=== PATIENT | male | born 1970 | race Hispanic/Latino ===

== ENCOUNTER 2018-06-07 15:19 | Observation (INO) | payer OTHER ==
--- OUTSIDE RECORDS SUMMARY | 2018-06-07 15:22 | XMS REPORT | Clinical Summary ---
:1970 Author Organization [facility] Address [address] [place] [address] Care Team Providers Name Role Phone Maribel Fisher MD Primary Care Provider Allergies No Known Allergies Medications Medication Sig Dispensed Refills Start End Date Status Date hepatitis B Inject 1 mL 1 mL 2 10/22/19 Discontinued vaccine intramuscularly once 7 18 (ENGERIX-B) 20 for 1 dose at 0 mcg/mL Susp months, 1 month, and injectionIndicati 6 months. ons: Fatty liver disease, nonalcoholic, Immunization due Active Problems Problem Noted Date Secondary hypertension 05/17/2018 Elevated liver enzymes 01/28/2015 Last Assessment & Plan: Patient has elevated liver enzymes with predominant hepatocellular pattern of injury. Comprehensive work up for etiology of elevated liver enzymes including SAM, AMA , Anti Sm, Anti LKM-1, ceruplasmin, A1-antitrypsin done by Dr. Amado is negative. S. Ferritin was elevated to 1501 with normal % transferrin saturation. Anti Hep C and HIV negative. We don't have Hep A and B serologies but per patient it was checked and negative. Likely etiology for elevated liver enzyme is ONEAL, however typically this degree of AST/ALT elevation is not seen. Diagnosis of ONEAL is presumed based on improvement in AST/ALT with weight loss, family history of ONEAL cirrhosis in mother. We will repeat lab work today. We will consider liver biopsy for further work up based on lab result on next clinic visit. Family history of atherosclerosis 01/28/2015 Last Assessment & Plan: Family history of diabetes in mom and dad, and premature CAD in father is a risk factor for diabetes and atherosclerosis in patient. We will check fasting lipids, HbA1C and insulin level. Further recommendations to follow. Immunity status testing 01/28/2015 Last Assessment & Plan: We will test for immunity against Hep A and Hep B. Immunization recommendations to follow. Iron overload 01/28/2015 Last Assessment & Plan: Serum ferritin was elevated to 1501 with normal % transferrin saturation. Elevated ferritin could be because of underlying ONEAL, but typically this degree of elevation is not seen. We will repeat iron studies and check HFE mutation analysis. If liver biopsy is performed in future we will also perform iron staining. Fatty liver disease, nonalcoholic 01/28/2015 Last Assessment & Plan: Diagnosis of fatty liver based on imaging. Risk factor for fatty liver includes obesity and family history of ONEAL cirrhosis. He has no prior history of HLD or diabetes. We will check fasting lipids, in sulin and HbA1C. We recommended a 10% weight loss, which disproportionately decreases visceral fat and can ameliorate hepatic steatosis and steatohepatitis by 95-100%. We recommended a modified Gemma's diet, substituting vegetables for wheat, corn, potato or rice or foods made from the flours of these carbohydrates. Obesity 01/28/2015 Last Assessment & Plan: Obesity is a risk factor for NAFLD. We discussed weight loss with dietary modification and exercise. See discussion in NAFLD section. Encounters Date Type Specialty Care Team Description 06/07/2018 Hospital Encounter Research Armen Corea MD 05/17/2018 Office Visit Hepatology Wyatt Godoy, Fatty liver disease, nonalcoholic (Primary Dx); Iron overload; [employer] Obesity due to excess calories without serious comorbidity, unspecified classification; CLINT Schultz Immunity status testing; Elevated liver enzymes; Secondary hypertension 05/17/2018 Abstract Transplant Delmy Almazan Hepatology Pavel, RICHI 05/17/2018 Abstract Transplant Delmy Almazan Hepatalphonse Zhao, RICHI 05/10/2018 Hospital Encounter Research Armen Corea MD 05/10/2018 Orders Only Hepatology Polly, Encounter for examination for normal comparison or control in clinical research program (Primary Dx); Era Schultz NP Nonalcoholic steatohepatitis (ONEAL) 04/12/2018 Hospital Encounter Research Armen Corea MD 03/15/2018 [facility] Encounter for examination for normal comparison or control in clinical research program; Era Schultz NP Nonalcoholic steatohepatitis (ONEAL) 03/15/2018 Hospital Encounter Research Armen Corea MD 02/15/2018 Hospital Encounter Research Armen Corea MD 02/14/2018 [facility], Encounter for examination for normal comparison or control in clinical research program (Primary Dx); Era Schultz NP Nonalcoholic steatohepatitis (ONEAL) 01/18/2018 Hospital Encounter Research Armen Corea MD 12/23/2017 Hospital Encounter Research Armen Corea MD 12/16/2017 Hospital Encounter Radiology [place], Encounter for examination for normal comparison and control in clinical research program; Era Schultz NP Nonalcoholic steatohepatitis (ONEAL) 12/06/2017 Orders Only Hepatology [place], Encounter for examination for normal comparison and control in clinical research program (Primary Dx); Era Schultz NP Nonalcoholic steatohepatitis (ONEAL) 11/17/2017 Office Visit Hepatology Wyatt Godoy, Fatty liver disease, nonalcoholic (Primary Dx); Elevated liver enzymes; Seble Souza Immunity status testing; TREVOR Schultz Iron overload; Obesity due to excess calories without serious comorbidity, unspecified classification; Hypertension, unspecified type 10/21/2017 Hospital Encounter Armen Corea Encounter for examination for normal comparison and control in clinical research program; MD Alvaro 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 Last Filed Vital Signs Vital Sign Reading Time Taken Blood Pressure 128/85 05/17/2018 8:16 AM CDT Pulse 74 05/17/2018 8:16 AM CDT Temperature 36.9 C (98.4 F) 05/17/2018 8:16 AM CDT Respiratory Rate 18 05/17/2018 8:16 AM CDT Oxygen Saturation 96% 05/17/2018 8:16 AM CDT Inhaled Oxygen Concentration - - Weight 105.4 kg (232 lb 4.8 oz) 05/17/2018 8:16 AM CDT Height 177.8 cm (5' 10") 05/17/2018 8:16 AM CDT Body Mass Index 33.33 05/17/2018 8:16 AM CDT Plan of Treatment Date Type Specialty Care Team Description 06/10/2018 Hospital Encounter Radiology Era Matias, EXECUTIVE RECEPTIONIST [id number] [facility] [address] [place] [address] 05/16/2019 Office Visit Hepatology Resource, [facility] F Procedures Procedure Name Priority Date/Time Associated Diagnosis Comments FERRITIN Routine 05/17/2018 10:23 Fatty liver disease, Results for this AM CDT nonalcoholic procedure are in Iron overload the results section. IRON, TIBC, % SAT. Routine 05/17/2018 10:23 Fatty liver disease, Results for this (WITHOUT FERRITIN) AM CDT nonalcoholic procedure are in Iron overload the results section. MR ABDOMEN WITHOUT Routine 03/15/2018 10:50 Encounter for Results for this IV CONTRAST AM LINE ASSEMBLER examination for normal procedure are in comparison or control the results in clinical research section. program Nonalcoholic steatohepatitis (ONEAL) MR ABDOMEN WITHOUT Routine 12/16/2017 1:15 Encounter for Results for this IV CONTRAST PM CDT examination for normal procedure are in comparison and control the results in clinical research section. program Nonalcoholic steatohepatitis (ONEAL) TISSUE EXAM AP Routine 10/21/2017 9:39 Results for this PM CDT procedure are in the results section. US LIVER BIOPSY Routine 10/21/2017 12:05 Encounter for Results for this PM CDT examination for normal procedure are in comparison and control the results in clinical research section. 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 PT/APTT STAT 10/21/2017 8:34 Results for this AM CDT procedure are in the results section. CBC W/PLT COUNT & STAT 10/21/2017 8:34 Results for this AUTO DIFFERENTIAL AM CDT procedure are in the results section. BASIC METABOLIC STAT 10/21/2017 8:34 Results for this PANEL (7) AM CDT procedure are in the results section. after 06/06/2017 Results Iron, TIBC, % sat. (without ferritin) (05/17/2018 10:23 AM CDT) Iron 100.0 40.0 - 160.0 ug/dL [facility] TIBC 409 250 - 450 ug/dL [facility] Iron % Saturation 24 20 - 55 % [facility] Specimen Blood Performing Organization Address City/[facility]/Zipcode Phone Number [facility] [address] [place] [phone] [place] Ferritin (05/17/2018 10:23 AM CDT) Ferritin 334 (H) 5 - 275 ng/mL [facility] Specimen Blood Performing Organization Address City/State/Zipcode Phone Number [facility] [address] [place] [phone] CENTER MR abdomen without IV contrast (03/15/2018 10:50 AM LINE ASSEMBLER)Only the most recent of2 resultswithin the time period is included. Narrative Performed At FINAL REPORT [facility] TECHNIQUE: MRI of the abdomen without intravenous contrast for research purposes. INDICATION: Participant in a clinical research trial. COMPARISON: MRI of the abdomen from 04/24/2016. FINDINGS/IMPRESSION: These images were obtained for research purposes. Diffuse fatty infiltration of the liver. Signed: Yan Salazar MD Report Verified Date/Time:03/15/2018 12:17:25 Reading Location: [facility] B1 C013Y CT Body Reading Room Procedure Note Interface, External Ris In - 03/15/2018 12:19 PM LINE ASSEMBLER FINAL REPORT TECHNIQUE: MRI of the abdomen without intravenous contrast for research purposes. INDICATION: Participant in a clinical research trial. COMPARISON: MRI of the abdomen from 04/24/2016. FINDINGS/IMPRESSION: These images were obtained for research purposes. Diffuse fatty infiltration of the liver. Signed: Yan Salazar MD Report Verified Date/Time: 03/15/2018 12:17:25 Reading Location: [facility] B1 C013Y CT Body Reading Room Performing Organization Address City/State/Zipcode Phone Number GE RIS Tissue Exam (10/21/2017 9:39 PM CDT) Case Report Surgical Pathology Report Case: [id number] [facility] Authorizing Provider:Armen Corea MD Collected: [id number]/21/[id number] [facility] Ordering Location: [place] [address] OP Received:10/21/20172141 Pathologist: Ivan Nieto MD Specimen:Biopsy, Liver, Bx DIAGNOSIS LIVER, ULTRASOUND-GUIDED NEEDLE BIOPSIES [facility] - STEATOHEPATITIS [facility] - FIBROSIS STAGE 2 OF 4 - SEE COMMENT Signing Pathologist Direct Phone Line: [phone] COMMENT The non-alcoholic steatohepatitis (ROGERS) activity scoring is performed according to guidelines from non-alcoholic steatohepatitis, clinical research network (Mariam, et al. Hepatology 2005. 41:1313-21), [facility] at the request of the clinician, for research related purposes. [facility] The ROGERS score is: Steatosis: Grade 2 + lobular inflammation, grade 2 + hepatocyte ballooning score 2=6/8. The fibrosis score is 2 of 4. CPT Code(s) 98812, 11678 X4 [facility] CLINICAL HISTORY Fatty liver disease [facility] SPECIMEN SOURCE Ultrasound-guided nontargeted [facility] needle biopsy [facility] GROSS DESCRIPTION Received in formalin labeled with patient's name and MRN are two tissue cores measuring 1.3 cm and 1.4 cm in length respectively with an average diameter of 0.1 cm. Entirely submitted in A1. [facility] MICROSCOPIC DESCRIPTION Section shows two cores of liver parenchyma with greater than 10 portal tracts and is adequate for evaluation. There is moderate steatosis, macrovesicular type admixed with small droplet and medium drop [facility] let steatosis, involving about 60% of liver parenchyma. Multifocal ballooning degeneration with early Dora Denk hyaline is noted. Occasional acidophilic bodies are seen. Moderate lobular inflammation [facility] is present. The portal tracts show mild chronic nonspecific portal inflammation. The bile ducts are preserved and unremarkable. Ductular reaction is present. Iron stain shows 1+ to 2+ staining of the h epatocytes. No hyaline globules are seen on PAS with diastase stain. The trichrome stain portal/periportal and perivenular perisinusoidal fibrosis. Special stains: trichrome, reticulin, iron and PAS with diastase Specimen Tissue - Biopsy, Liver Performing Organization Address City/State/Zipcode Phone Number [facility] [address] [place] [address] [facility] liver biopsy (10/21/2017 12:05 PM CDT) Narrative Performed At FINAL REPORT [employer] PROCEDURE: Ultrasound-guided nonfocal liver biopsy. INDICATION: 47-year-old man with nonalcoholic steatohepatitis. COMPARISON: Ultrasound-guided liver biopsy 05/19/2016. SEDATION: Intravenous moderate sedation was administered by radiology nursing and monitored under the direction of the undersigned radiologist. The patient's vital signs were monitored throughout the procedure and recorded in the patient's medical record by radiology nursing. Total intraservice time of sedation was 15 minutes. MEDICATIONS: 1 mg Versed, 50 mcg fentanyl FINDINGS: After obtaining informed written consent, the patient was placed in the supine position, and ultrasound scan identified an accessible window to the right lobe of the liver. Increased echogenicity of the liver, consistent with hepatic steatosis. The overlying skin was prepped and draped in the usual, sterile fashion and local 9 cc of 1% lidocaine anesthesia was administered. Two core biopsies of the liver were obtained using 16-gauge Biopince biopsy needle under ultrasound guidance. Post procedure scans revealed no immediate complications. IMPRESSION: Uncomplicated ultrasound-guided nonfocal biopsy of the liver. Signed: Dami Serrano MD Report Verified Date/Time:10/21/2017 12:07:36 Reading Location: [address] Ultrasound Reading Room Procedure Note Interface, External Ris In - 10/21/2017 12:11 PM CDT FINAL REPORT PROCEDURE: Ultrasound-guided nonfocal liver biopsy. INDICATION: 47-year-old man with nonalcoholic steatohepatitis. COMPARISON: Ultrasound-guided liver biopsy 05/19/2016. SEDATION: Intravenous moderate sedation was administered by radiology nursing and monitored under the direction of the undersigned radiologist. The patient's vital signs were monitored throughout the procedure and recorded in the patient's medical record by radiology nursing. Total intraservice time of sedation was 15 minutes. MEDICATIONS: 1 mg Versed, 50 mcg fentanyl FINDINGS: After obtaining informed written consent, the patient was placed in the supine position, and ultrasound scan identified an accessible window to the right lobe of the liver. Increased echogenicity of the liver, consistent with hepatic steatosis. The overlying skin was prepped and draped in the usual, sterile fashion and local 9 cc of 1% lidocaine anesthesia was administered. Two core biopsies of the liver were obtained using 16-gauge Biopince biopsy needle under ultrasound guidance. Post procedure scans revealed no immediate complications. IMPRESSION: Uncomplicated ultrasound-guided nonfocal biopsy of the liver. Signed: Dami Serrano MD Report Verified Date/Time: 10/21/2017 12:07:36 Reading Location: [address] Ultrasound Reading Room Performing Organization Address City/[facility] Phone Number [facility] PT/aPTT (10/21/2017 8:34 AM CDT) Protime 14.7 11.7 - 14.7 seconds [facility] INR 1.2 <=5.9 [facility] PTT 31.2 22.5 - 36.0 seconds [facility] Specimen Blood - Arm, Left Narrative Performed At [facility] RECOMMENDED COUMADIN/WARFARIN INR THERAPY RANGES STANDARD DOSE: 2.0 - 3.0 Includes: PROPHYLAXIS for venous thrombosis, systemic embolization; TREATMENT for venous thrombosis and/or pulmonary embolus. HIGH RISK: Target INR is 2.5-3.5 for patients with mechanical heart valves. Performing Organization Address City/[facility] Cent[facility]ode Phone Number [place] [phone] [place] [phone] CENTER CBC with platelet count + automated diff (10/21/2017 8:34 AM CDT) WBC 7.8 3.5 - 10.5 K/L [facility] RBC 5.59 4.63 - 6.08 M/L [facility] Hemoglobin 14.7 13.7 - 17.5 GM/DL [facility] Hematocrit 46.3 40.1 - 51.0 % [facility] MCV 82.8 79.0 - 92.2 fL [facility] MCH 26.3 25.7 - 32.2 pg [facility] MCHC 31.7 (L) 32.3 - 36.5 GM/DL [facility] RDW 13.9 11.6 - 14.4 % [facility] Platelets 213 150 - 450 K/CU MM [facility] MPV 11.0 9.4 - 12.4 fL [facility] nRBC 0 0 - 0 /100 WBC [facility] % Neutros 59 % [facility] % Lymphs 29 % [facility] % Monos 9 % [facility] % Eos 2 % [facility] % Baso 0 % [facility] # Neutros 4.63 1.78 - 5.38 K/L [facility] # Lymphs 2.28 1.32 - 3.57 K/L [facility] # Monos 0.71 0.30 - 0.82 K/L [facility] # Eos 0.14 0.04 - 0.54 K/L [facility] # Baso 0.03 0.01 - 0.08 K/L [facility] Immature Granulocytes-Relative 1 0 - 1 % [facility] Specimen Blood - Arm, Left Performing Organization Address [facility]/Zipcode Phone Number [facility] [address] [place], [place] [phone] [place] Basic Metabolic Panel (10/21/2017 8:34 AM CDT) Sodium 138 136 - 145 meq/L [facility] Potassium 4.2 3.5 - 5.1 meq/L [facility] Chloride 104 98 - 107 meq/L [facility] CO2 23 22 - 29 meq/L [facility] BUN 16 7 - 21 mg/dL [facility] Creatinine 1.19 0.57 - 1.25 mg/dL [facility] Glucose 103 70 - 105 mg/dL [facility] Calcium 9.6 8.4 - 10.2 mg/dL [facility] EGFR 65Comment: ESTIMATED GFR IS mL/min/1.73 sq m [facility] NOT ACCURATE CREATININE [facility] CLEARANCE IN PREDICTING GLOMERULAR FILTRATION RATE. ESTIMATED GFR IS NOT APPLICABLE FOR DIALYSIS PATIENTS. Specimen Blood - Arm, Left Performing Organization Address City/[facility]/Zipcode Phone Number [facility] [address] [place] [address] [phone] [place] after 06/06/2017 Insurance Payer Benefit Plan / Group Subscriber ID Type Phone Address [employer] - [employer] POS SELECT xxxxxxxxx HMO/POS CARE CHOICE Advance Directives For more information, please contact:[address] [phone] Code Status Date Activated Date Inactivated Comments Full Code 10/21/2017 12:28 PM 10/21/2017 8:40 PM This code status was determined by: Patient Full Code 05/19/2016 12:40 PM 05/19/2016 7:44 PM This code status was determined by: Patient Full Code 03/27/2015 11:12 AM 03/28/2015 12:26 AM This code status was determined by: Patient
--- OUTSIDE RECORDS SUMMARY | 2018-06-07 15:22 | XMS REPORT ---
:1970 Author [facility] Address [address] [place] [address] Dr. Billy [address] [place] [id number] Care Team Providers Name Role Phone TIM ROGERS Unavailable Unavailable JACOBO COREA Unavailable Unavailable MADDIE ORTEGA Unavailable Unavailable Problems This patient has no known problems. Allergies, Adverse Reactions, Alerts This patient has no known allergies or adverse reactions. Medications This patient has no known medications. Results Test Description Test Time Test Comments Text Results Atomic Results Result Comments FERRITIN 2018-05-17 12:17:00 Test Item Value Reference Range Comments FERRITIN (BEAKER) (test tuqp=965) 334 ng/mL 5-275 IRON, TIBC, % SAT. (WITHOUT FERRITIN)2018-05-17 11:56:00 Test Item Value Reference Range Comments IRON (BEAKER) (test qqvj=307) 100.0 ug/dL 40.0-160.0 TOTAL IRON BINDING CAPACITY (BEAKER) (test 409 ug/dL 250-450 vbys=668) IRON % SATURATION (2) (BEAKER) (test vgdz=0121) 24 % 20-55 MR, ABDOMEN, WITHOUT [id number] 12:17:00Referring: Dr. Maribel CarranzaED MRI WITHOUT CONTRAST WITH FAT FRACTIONFINAL REPORT TECHNIQUE: MRI of the abdomen without intravenous contrast for research purposes. INDICATION: Participant in a clinical research trial. COMPARISON: MRI of the abdomen from 04/24/2016. FINDINGS/IMPRESSION:These images were obtained for research purposes. Diffuse fattyinfiltration of the liver. Signed: Yan Salazar MDReport Verified Date/Time: 03/15/2018 12:17:25 Reading Location: [facility] C013Y CT Body Reading Room MR, ABDOMEN, WITHOUT [id number] 14:30:00Referring: Dr. Maribel CarranzaED MRI ABD WITH FAT FRACTIONFINAL REPORT TECHNIQUE: MRI of the abdomen without intravenous contrast for research purposes. INDICATION: Participant in a clinical research trial. COMPARISON: MRI of the abdomen from 04/24/2016. FINDINGS/IMPRESSION: These images were obtained for research purposes. Diffuse fatty infiltration of the liver. Signed: Blaise Robbins Verified Date/Time : 12/16/2017 14:30:40 Reading Location: [facility] B1 C013Y CT Body Reading Room TISSUE [id number] 12:17:00Surgical Pathology Report Case: [id number] Authorizing Provider: Jacobo Corea MD Collected: 10/21/20172138 Ordering Location: [place] [address] OP Received: 10/21/20172141 Pathologist: Ivan Nieto MD Specimen: Biopsy, Liver, Bx LIVER, ULTRASOUND-GUIDED NEEDLE BIOPSIES- STEATOHEPATITIS- FIBROSIS STAGE 2 OF 4- SEE COMMENT Signing Pathologist Direct Phone Line: [phone] signed by Ivan Nieto MD on at 12:17PMThe non-alcoholic steatohepatitis (ROGERS) activity scoring is performed according to guidelines fromnon-alcoholic steatohepatitis, clinical research network (Mariam, et al. Hepatology 2005. 41:1313-21), at the request of the clinician, for research related purposes.The ROGERS score is: Steatosis: Grade2 + lobular inflammation, grade 2 + hepatocyte ballooning score 2=6/8. The fibrosis score is 2 of 4.70725, 77792 L4Durnt liver diseaseUltrasound-guided nontargeted needle biopsyReceived in formalin labeled with patient's name and MRN are two tissue cores measuring 1.3 cm and 1.4 cm in length respectively with an average diameter of 0.1 cm. Entirely submitted in A1.Section shows two cores of liver parenchyma with greater than 10 portal tracts and is adequate for evaluation. There is moderate steatosis, macrovesicular type admixed with small droplet and medium droplet steatosis, involving about 60% of liver parenchyma. Multifocal ballooning degeneration with early Dora Denk hyaline is noted. Occasional acidophilic bodies are seen. Moderate lobular inflammation is present. The portal tracts show mild chronic nonspecific portal inflammation. The bile ducts are preserved and unremarkable. Ductularreaction is present. Iron stain shows 1+ to 2+ staining of the hepatocytes. No hyaline globules are seen on PAS with diastase stain. The trichrome stain portal/ periportal and perivenular perisinusoidalfibrosis.Special stains: trichrome, reticulin, iron and PAS with diastaseU/S, BIOPSY, [id number] 12:07: 00Referring: Dr. Maribel Burks for Exam:->Participation in a clinical research trialReason for Exam:->NASHFINAL REPORT PROCEDURE: Ultrasound-guided nonfocal liver biopsy. INDICATION: 47-year-old man with nonalcoholic steatohepatitis. COMPARISON: Ultrasound-guided liver biopsy . SEDATION: Intravenous moderate sedation was administered by radiology nursing and monitored underthe direction of the undersigned radiologist. The patient's [...] Uncomplicated ultrasound-guided nonfocal biopsy of the liver. Signed :Dami Serrano Verified Date/Time: 10/21/2017 12:07:36 Reading Location: [address] Ultrasound Reading Room [id number] 09:01:00 Test Item Value Reference Range Comments PROTIME (BEAKER) (test yise=699) 14.7 seconds 11.7-14.7 INR (BEAKER) (test duqz=042) 1.2 <=5.9 PARTIAL THROMBOPLASTIN TIME (BEAKER) (test 31.2 seconds 22.5-36.0 xzmh=999) RECOMMENDED COUMADIN/WARFARIN INR THERAPY RANGESSTANDARD DOSE: 2.0 - 3.0 Includes: PROPHYLAXIS forvenous thrombosis, systemic embolization; TREATMENT for venous thrombosis and/or pulmonary embolus.HIGH RISK: Target INR is 2.5-3.5 for patients with mechanical heart valves.BASIC METABOLIC [id number] 09:01: 00 Test Item Value Reference Range Comments SODIUM (BEAKER) (test 138 meq/L 136-145 ivhq=415) POTASSIUM (BEAKER) (test 4.2 meq/L 3.5-5.1 mgsb=057) CHLORIDE (BEAKER) (test 104 meq/L 98-107 umnd=600) CO2 (BEAKER) (test 23 meq/L 22-29 ryau=363) BLOOD UREA NITROGEN 16 mg/dL 7-21 (BEAKER) (test cvqz=259) CREATININE (BEAKER) (test 1.19 mg/dL 0.57-1.25 jdqe=912) GLUCOSE RANDOM (BEAKER) 103 mg/dL 70-105 (test moie=309) CALCIUM (BEAKER) (test 9.6 mg/dL 8.4-10.2 cdqh=452) EGFR (BEAKER) (test 65 mL/min/1.73 sq m ESTIMATED GFR IS NOT qqzo=3168) ACCURATE CREATININE CLEARANCE IN PREDICTING GLOMERULAR FILTRATION RATE. ESTIMATED GFR IS NOT APPLICABLE FOR DIALYSIS PATIENTS. CBC W/PLT COUNT & AUTO [id number] 08:46:00 Test Item Value Reference Range Comments WHITE BLOOD CELL COUNT (BEAKER) (test gcgf=562) 7.8 K/ L 3.5-10.5 RED BLOOD CELL COUNT (BEAKER) (test racf=418) 5.59 M/ L 4.63-6.08 HEMOGLOBIN (BEAKER) (test wlzq=547) 14.7 GM/DL 13.7-17.5 HEMATOCRIT (BEAKER) (test mcua=917) 46.3 % 40.1-51.0 MEAN CORPUSCULAR VOLUME (BEAKER) (test bewf=945) 82.8 fL 79.0-92.2 MEAN CORPUSCULAR HEMOGLOBIN (BEAKER) (test 26.3 pg 25.7-32.2 jhex=974) MEAN CORPUSCULAR HEMOGLOBIN CONC (BEAKER) (test 31.7 GM/DL 32.3-36.5 kjyz=896) RED CELL DISTRIBUTION WIDTH (BEAKER) (test 13.9 % 11.6-14.4 ntsk=204) PLATELET COUNT (BEAKER) (test zkbf=732) 213 K/CU MM 150-450 MEAN PLATELET VOLUME (BEAKER) (test cfxg=707) 11.0 fL 9.4-12.4 NUCLEATED RED BLOOD CELLS (BEAKER) (test 0 /100 WBC 0-0 myvv=549) NEUTROPHILS RELATIVE PERCENT (BEAKER) (test 59 % fkpe=378) LYMPHOCYTES RELATIVE PERCENT (BEAKER) (test 29 % avom=218) MONOCYTES RELATIVE PERCENT (BEAKER) (test 9 % qpkx=741) EOSINOPHILS RELATIVE PERCENT (BEAKER) (test 2 % kfza=459) BASOPHILS RELATIVE PERCENT (BEAKER) (test 0 % uahq=147) NEUTROPHILS ABSOLUTE COUNT (BEAKER) (test 4.63 K/ L 1.78-5.38 rhyl=120) LYMPHOCYTES ABSOLUTE COUNT (BEAKER) (test 2.28 K/ L 1.32-3.57 ukcb=638) MONOCYTES ABSOLUTE COUNT (BEAKER) (test 0.71 K/ L 0.30-0.82 syjt=443) EOSINOPHILS ABSOLUTE COUNT (BEAKER) (test 0.14 K/ L 0.04-0.54 sdkp=276) BASOPHILS ABSOLUTE COUNT (BEAKER) (test 0.03 K/ L 0.01-0.08 vgwb=184) IMMATURE GRANULOCYTES-RELATIVE PERCENT (BEAKER) 1 % 0-1 (test ovrg=5154) ALPHA FETOPROTEIN (AFP), TUMOR [id number] 13:49:00 Test Item Value Reference Range Comments ALPHA-FETOPROTEIN (BEAKER) (test ighr=8758) < ng/mL <10.0 [id number] 12:32:00 Test Item Value Reference Range Comments FERRITIN (BEAKER) (test iaak=645) 573 ng/mL 5-275 [id number] 12:18:00 Test Item Value Reference Range Comments MAGNESIUM (BEAKER) (test qode=086) 2.2 mg/dL 1.6-2.6 BASIC METABOLIC [id number] 12:18:00 Test Item Value Reference Range Comments SODIUM (BEAKER) (test 137 meq/L 136-145 mohd=599) POTASSIUM (BEAKER) (test 4.4 meq/L 3.5-5.1 katt=103) CHLORIDE (BEAKER) (test 105 meq/L 98-107 pgtj=538) CO2 (BEAKER) (test 26 meq/L 22-29 rmuk=108) BLOOD UREA NITROGEN 13 mg/dL 7-21 (BEAKER) (test rpto=851) CREATININE (BEAKER) (test 0.96 mg/dL 0.57-1.25 tmhj=727) GLUCOSE RANDOM (BEAKER) 114 mg/dL 70-105 (test rwtb=722) CALCIUM (BEAKER) (test 9.3 mg/dL 8.4-10.2 qvgh=172) EGFR (BEAKER) (test 83 mL/min/1.73 sq m ESTIMATED GFR IS NOT oyuq=3949) ACCURATE CREATININE CLEARANCE IN PREDICTING GLOMERULAR FILTRATION RATE. ESTIMATED GFR IS NOT APPLICABLE FOR DIALYSIS PATIENTS. HEPATIC FUNCTION [id number] 12:18:00 Test Item Value Reference Range Comments TOTAL PROTEIN (BEAKER) (test qqvo=961) 7.8 gm/dL 6.0-8.3 ALBUMIN (BEAKER) (test bysh=5980) 4.5 g/dL 3.5-5.0 BILIRUBIN TOTAL (BEAKER) (test fneq=658) 0.8 mg/dL 0.2-1.2 BILIRUBIN DIRECT (BEAKER) (test crmy=137) 0.4 mg/dL 0.1-0.5 ALKALINE PHOSPHATASE (BEAKER) (test fbcz=601) 58 U/L 40-150 AST (SGOT) (BEAKER) (test lnwh=704) 73 U/L 5-34 ALT (SGPT) (BEAKER) (test kizi=240) 103 U/L 6-55 IRON, TIBC, % SAT. (WITHOUT FERRITIN)2017-05-05 12:03:00 Test Item Value Reference Range Comments IRON (BEAKER) (test reof=441) 88 ug/dL 40-160 TOTAL IRON BINDING CAPACITY (BEAKER) (test 354 ug/dL 250-450 cjnp=814) IRON % SATURATION (2) (BEAKER) (test aome=6995) 25 % 20-55 PROTHROMBIN [id number] 11:42:00 Test Item Value Reference Range Comments PROTIME (BEAKER) (test pmgb=851) 14.1 seconds 11.7-14.7 INR (BEAKER) (test odpd=610) 1.1 <=5.9 RECOMMENDED COUMADIN/WARFARIN INR THERAPY RANGESSTANDARD DOSE: 2.0 - 3.0 Includes: PROPHYLAXIS forvenous thrombosis, systemic embolization; TREATMENT for venous thrombosis and/or pulmonary embolus.HIGH RISK: Target INR is 2.5-3.5 for patients with mechanical heart valves.CBC W/PLT COUNT & AUTO [id number] 11:35:00 Test Item Value Reference Range Comments WHITE BLOOD CELL COUNT (BEAKER) (test ratn=586) 6.4 K/ L 3.5-10.5 RED BLOOD CELL COUNT (BEAKER) (test yajd=495) 5.86 M/ L 4.63-6.08 HEMOGLOBIN (BEAKER) (test jlsp=565) 15.3 GM/DL 13.7-17.5 HEMATOCRIT (BEAKER) (test olga=243) 48.0 % 40.1-51.0 MEAN CORPUSCULAR VOLUME (BEAKER) (test kaks=976) 81.9 fL 79.0-92.2 MEAN CORPUSCULAR HEMOGLOBIN (BEAKER) (test 26.1 pg 25.7-32.2 knzn=708) MEAN CORPUSCULAR HEMOGLOBIN CONC (BEAKER) (test 31.9 GM/DL 32.3-36.5 ckge=339) RED CELL DISTRIBUTION WIDTH (BEAKER) (test 14.0 % 11.6-14.4 jjjf=655) PLATELET COUNT (BEAKER) (test ykwg=368) 213 K/CU MM 150-450 MEAN PLATELET VOLUME (BEAKER) (test lxam=041) 11.4 fL 9.4-12.4 NUCLEATED RED BLOOD CELLS (BEAKER) (test 0 /100 WBC 0-0 tjbe=231) NEUTROPHILS RELATIVE PERCENT (BEAKER) (test 63 % takl=752) LYMPHOCYTES RELATIVE PERCENT (BEAKER) (test 27 % owem=275) MONOCYTES RELATIVE PERCENT (BEAKER) (test 8 % egpo=264) EOSINOPHILS RELATIVE PERCENT (BEAKER) (test 1 % wcfm=471) BASOPHILS RELATIVE PERCENT (BEAKER) (test 1 % ykom=992) NEUTROPHILS ABSOLUTE COUNT (BEAKER) (test 4.05 K/ L 1.78-5.38 nbbd=755) LYMPHOCYTES ABSOLUTE COUNT (BEAKER) (test 1.74 K/ L 1.32-3.57 ejxe=370) MONOCYTES ABSOLUTE COUNT (BEAKER) (test 0.49 K/ L 0.30-0.82 atvv=630) EOSINOPHILS ABSOLUTE COUNT (BEAKER) (test 0.09 K/ L 0.04-0.54 tfwz=248) BASOPHILS ABSOLUTE COUNT (BEAKER) (test 0.04 K/ L 0.01-0.08 kaly=078) IMMATURE GRANULOCYTES-RELATIVE PERCENT (BEAKER) 0 % 0-1 (test zuon=8520) [id number] 15:35:00 Test Item Value Reference Range Comments FERRITIN (BEAKER) (test asyd=055) 870 ng/mL 5-275 Effective 01/23/2014: Reference Range ChangeNew: Male 5-275 Previous: Male 22-322 Female 5-275 Female 10-291IRON, TIBC, % SAT. ( WITHOUT FERRITIN)2016-10-28 13:12:00 Test Item Value Reference Range Comments IRON (BEAKER) (test zwxc=578) 133 ug/dL 40-160 TOTAL IRON BINDING CAPACITY (BEAKER) (test 324 ug/dL 250-450 onbw=133) IRON % SATURATION (2) (BEAKER) (test qenx=5122) 41 % 20-55 HEPATIC FUNCTION [id number] 13:03:00 Test Item Value Reference Range Comments TOTAL PROTEIN (BEAKER) (test imvz=486) 7.9 gm/dL 6.0-8.3 ALBUMIN (BEAKER) (test jjfm=4097) 4.6 g/dL 3.5-5.0 BILIRUBIN TOTAL (BEAKER) (test qmlb=581) 1.0 mg/dL 0.2-1.2 BILIRUBIN DIRECT (BEAKER) (test hsyv=791) 0.4 mg/dL 0.1-0.5 ALKALINE PHOSPHATASE (BEAKER) (test ppus=240) 55 U/L 40-150 AST (SGOT) (BEAKER) (test rpje=678) 108 U/L 5-34 ALT (SGPT) (BEAKER) (test autt=886) 129 U/L 6-55 BASIC METABOLIC [id number] 13:03:00 Test Item Value Reference Range Comments SODIUM (BEAKER) (test 137 meq/L 136-145 eafa=895) POTASSIUM (BEAKER) (test 4.3 meq/L 3.5-5.1 dbfc=560) CHLORIDE (BEAKER) (test 104 meq/L 98-107 amwd=268) CO2 (BEAKER) (test 25 meq/L 22-29 oytl=594) BLOOD UREA NITROGEN 12 mg/dL 7-21 (BEAKER) (test ynlb=535) CREATININE (BEAKER) (test 1.09 mg/dL 0.57-1.25 hqdy=925) GLUCOSE RANDOM (BEAKER) 107 mg/dL 70-105 (test xasz=854) CALCIUM (BEAKER) (test 9.4 mg/dL 8.4-10.2 uzhw=878) EGFR (BEAKER) (test 72 mL/min/1.73 sq m ESTIMATED GFR IS NOT qtqn=0943) ACCURATE CREATININE CLEARANCE IN PREDICTING GLOMERULAR FILTRATION RATE. ESTIMATED GFR IS NOT APPLICABLE FOR DIALYSIS PATIENTS. CBC W/PLT COUNT & AUTO [id number] 12:29:00 Test Item Value Reference Range Comments WHITE BLOOD CELL COUNT (BEAKER) (test zxpt=869) 7.0 K/ L 3.5-10.5 RED BLOOD CELL COUNT (BEAKER) (test nvcw=185) 5.75 M/ L 4.63-6.08 HEMOGLOBIN (BEAKER) (test ided=364) 15.2 GM/DL 13.7-17.5 HEMATOCRIT (BEAKER) (test birv=759) 46.7 % 40.1-51.0 MEAN CORPUSCULAR VOLUME (BEAKER) (test iudm=252) 81.2 fL 79.0-92.2 MEAN CORPUSCULAR HEMOGLOBIN (BEAKER) (test 26.4 pg 25.7-32.2 esni=733) MEAN CORPUSCULAR HEMOGLOBIN CONC (BEAKER) (test 32.5 GM/DL 32.3-36.5 zsbb=278) RED CELL DISTRIBUTION WIDTH (BEAKER) (test 14.0 % 11.6-14.4 mgww=693) PLATELET COUNT (BEAKER) (test ptfq=461) 218 K/CU MM 150-450 MEAN PLATELET VOLUME (BEAKER) (test dfwt=973) 12.4 fL 9.4-12.4 NUCLEATED RED BLOOD CELLS (BEAKER) (test 0 /100 WBC 0-0 igqz=549) NEUTROPHILS RELATIVE PERCENT (BEAKER) (test 60 % mgay=599) LYMPHOCYTES RELATIVE PERCENT (BEAKER) (test 30 % cxlf=417) MONOCYTES RELATIVE PERCENT (BEAKER) (test 8 % xfej=313) EOSINOPHILS RELATIVE PERCENT (BEAKER) (test 2 % bhik=108) BASOPHILS RELATIVE PERCENT (BEAKER) (test 1 % fbvt=735) NEUTROPHILS ABSOLUTE COUNT (BEAKER) (test 4.18 K/ L 1.78-5.38 hpdx=972) LYMPHOCYTES ABSOLUTE COUNT (BEAKER) (test 2.06 K/ L 1.32-3.57 qrme=644) MONOCYTES ABSOLUTE COUNT (BEAKER) (test 0.54 K/ L 0.30-0.82 hscm=339) EOSINOPHILS ABSOLUTE COUNT (BEAKER) (test 0.14 K/ L 0.04-0.54 dydp=757) BASOPHILS ABSOLUTE COUNT (BEAKER) (test 0.04 K/ L 0.01-0.08 nqxj=056) IMMATURE GRANULOCYTES-RELATIVE PERCENT (BEAKER) 0 % 0-1 (test iolp=1684) TISSUE [id number] 12:01:00Surgical Pathology Report Case: [id number] Authorizing Provider: Era Matias Ordering Provider: Era Matias NP NP Ordering Location: [facility] Radiology Angio Collected: 05/19/2016 1411 Pathologist: Ivan Nieto MD Received: 05/19/2016 1412 Specimen: Liver LIVER, ULTRASOUND- GUIDED NEEDLE BIOPSIES- STEATOHEPATITIS- FIBROSIS STAGE 2-3 OF 4 Signing Pathologist Direct Phone Line: [phone] non-alcoholic steatohepatitis ( ROGERS) activity scoring is performed according to guidelines from non-alcoholic steatohepatitis, clinical research network (Mariam, et al. Hepatology 2005. 41: 1313-21), at the request of the clinicianThe ROGERS score is: Steatosis: Grade 3 + lobular inflammation, grade 3 + hepatocyte ballooning score 2=8/8. The fibrosis score is 2-3 of 669220, [address]25 X4NASH, research trialRight lobe liver biopsyReceived in formalin labeled "right liver" are two light martinez cores of soft tissue measuring 2.5 cm and 2.6 cm in length. The cores are bisected and the specimen is entirely submitted in cassette A1. DB/plSection shows four cores of liver parenchyma with greater than 10portal tracts and is adequate for evaluation. There is diffuse steatosis, predominantly macrovesicular type admixed with microvesicular steatosis, involving almost 70% of liver parenchyma. There are multiple small foci of ballooning degeneration with presence of early Dora hyaline. Multiple foci oflobular inflammation is present, focally more than 4 per 20x field. No definitive acidophil bodies are seen. The portal tracts show mild chronic nonspecific inflammation. No significant interface hepatitis is noted. The bile ducts are preserved and unremarkable. Occasional lymphoid aggregate is noted.Rare portal lipogranuloma is present. Iron stain shows 1+ iron deposition in the hepatocytes. No hyaline globules are seen on PAS with diastase stain. The trichrome stain shows perisinusoidal as well as portal/periportal fibrosis with focal bridging fibrosis. Reticulin stain shows 1-2 cell thick hepatocytic trabeculae and the reticulin framework is focally disrupted in foci of steatosis.[id number] 08:56:00 Test Item Value Reference Range Comments PROTIME (BEAKER) (test ogxx=380) 13.3 seconds 11.7-14.7 INR (BEAKER) (test vhcq=159) 1.0 <=5.9 PARTIAL THROMBOPLASTIN TIME (BEAKER) (test 31.0 seconds 22.5-36.0 vdlm=057) RECOMMENDED COUMADIN/WARFARIN INR THERAPY RANGESSTANDARD DOSE: 2.0 - 3.0 Includes: PROPHYLAXIS forvenous thrombosis, systemic embolization; TREATMENT for venous thrombosis and/or pulmonary embolus.HIGH RISK: Target INR is 2.5-3.5 for patients with mechanical heart valves.PLATELET [id number] 08:44:00 Test Item Value Reference Range Comments PLATELET COUNT (BEAKER) (test cvzs=692) 206 K/CU MM 150-430 ALPHA FETOPROTEIN (AFP), TUMOR [id number] 15:45:00 Test Item Value Reference Range Comments ALPHA-FETOPROTEIN (BEAKER) (test vxjs=3514) < ng/mL <10.0 Effective 01/23/2014: Reference Range ChangeNew: <10.0 Previous: 0.0- [id number] 15:43:00 Test Item Value Reference Range Comments FERRITIN (BEAKER) (test cwve=894) 679 ng/mL 5-275 Effective 01/23/2014: Reference Range ChangeNew: Male 5-275 Previous: Male 22-322 Female 5-275 Female 10-291LIPID [id number] 15:26 :00 Test Item Value Reference Range Comments TRIGLYCERIDES (BEAKER) (test lulw=814) 138 mg/dL CHOLESTEROL (BEAKER) (test kwtu=103) 153 mg/dL HDL CHOLESTEROL (BEAKER) (test xtay=775) 29 mg/dL LDL CHOLESTEROL CALCULATED (BEAKER) (test 96 mg/dL gxwi=685) Triglyceride Reference Range: Low Risk <150 Borderline 150- 199 High Risk 200-499 Very High Risk >=500Cholesterol Reference Range: Low Risk <200 Borderline 200-239 High Risk > 240HDL Cholesterol Reference Range: Low Risk >=60 High Risk <40LDL Cholesterol Reference Range: Optimal <100 Near Optimal 100-129 Borderline 130-159 High 160-189 Very High >=190BASIC METABOLIC [id number] 15:26:00 Test Item Value Reference Range Comments SODIUM (BEAKER) (test 137 meq/L 136-145 kqwq=962) POTASSIUM (BEAKER) (test 4.3 meq/L 3.5-5.1 mlll=258) CHLORIDE (BEAKER) (test 104 meq/L 98-107 omuy=111) CO2 (BEAKER) (test 23 meq/L 22-29 rsva=483) BLOOD UREA NITROGEN 12 mg/dL 7-21 (BEAKER) (test uvvi=619) CREATININE (BEAKER) (test 0.99 mg/dL 0.57-1.25 jrwa=409) GLUCOSE RANDOM (BEAKER) 100 mg/dL 70-105 (test hxwk=928) CALCIUM (BEAKER) (test 9.6 mg/dL 8.4-10.2 sabj=197) EGFR (BEAKER) (test 81 mL/min/1.73 sq m ESTIMATED GFR IS NOT nuez=0765) ACCURATE CREATININE CLEARANCE IN PREDICTING GLOMERULAR FILTRATION RATE. ESTIMATED GFR IS NOT APPLICABLE FOR DIALYSIS PATIENTS. HEPATIC FUNCTION [id number] 15:26:00 Test Item Value Reference Range Comments TOTAL PROTEIN (BEAKER) (test dlkn=292) 7.9 gm/dL 6.0-8.3 ALBUMIN (BEAKER) (test keoq=3243) 4.7 g/dL 3.5-5.0 BILIRUBIN TOTAL (BEAKER) (test wcjb=699) 0.7 mg/dL 0.2-1.2 BILIRUBIN DIRECT (BEAKER) (test ajlc=236) 0.3 mg/dL 0.1-0.5 ALKALINE PHOSPHATASE (BEAKER) (test cwfe=611) 67 U/L 40-150 AST (SGOT) (BEAKER) (test cusn=859) 79 U/L 5-34 ALT (SGPT) (BEAKER) (test bnvu=102) 116 U/L 6-55 GAMMA GLUTAMYL TRANSFERASE (GGT)2016-04-21 15:26:00 Test Item Value Reference Range Comments GAMMA GLUTAMYL TRANSFERASE (BEAKER) (test qfhu=999) 156 U/L 9-64 IRON, TIBC, % SAT. (WITHOUT FERRITIN)2016-04-21 15:23:00 Test Item Value Reference Range Comments IRON (BEAKER) (test jxhi=406) 85 ug/dL 40-160 TOTAL IRON BINDING CAPACITY (BEAKER) (test 324 ug/dL 250-450 qffw=973) IRON % SATURATION (2) (BEAKER) (test xchv=7583) 26 % 20-55 CBC W/PLT COUNT & AUTO [id number] 15:19:00 Test Item Value Reference Range Comments WHITE BLOOD CELL COUNT (BEAKER) (test sbjd=414) 7.8 K/ L 4.0-10.0 RED BLOOD CELL COUNT (BEAKER) (test pznd=172) 5.51 M/ L 4.20-5.80 HEMOGLOBIN (BEAKER) (test wtdg=509) 15.2 GM/DL 13.0-16.8 HEMATOCRIT (BEAKER) (test mppt=414) 46.0 % 40.0-50.0 MEAN CORPUSCULAR VOLUME (BEAKER) (test ejqj=445) 83.6 fL 82.0-98.0 MEAN CORPUSCULAR HEMOGLOBIN (BEAKER) (test 27.6 pg 27.0-33.0 ehnm=943) MEAN CORPUSCULAR HEMOGLOBIN CONC (BEAKER) (test 33.0 GM/DL 32.0-36.0 luwx=905) RED CELL DISTRIBUTION WIDTH (BEAKER) (test 12.6 % 10.3-14.2 aiww=118) PLATELET COUNT (BEAKER) (test etuy=417) 265 K/CU MM 150-430 MEAN PLATELET VOLUME (BEAKER) (test kdld=352) 8.2 fL 6.5-10.5 NUCLEATED RED BLOOD CELLS (BEAKER) (test 0 /100 WBC 0-0 gdjg=899) NEUTROPHILS RELATIVE PERCENT (BEAKER) (test 53 % chpu=396) LYMPHOCYTES RELATIVE PERCENT (BEAKER) (test 33 % ktbm=325) MONOCYTES RELATIVE PERCENT (BEAKER) (test 9 % fdlz=362) EOSINOPHILS RELATIVE PERCENT (BEAKER) (test 4 % ltgp=323) BASOPHILS RELATIVE PERCENT (BEAKER) (test 1 % gcvr=372) NEUTROPHILS ABSOLUTE COUNT (BEAKER) (test 4.14 K/ L 1.80-8.00 eguw=194) LYMPHOCYTES ABSOLUTE COUNT (BEAKER) (test 2.60 K/ L 1.48-4.50 quiv=209) MONOCYTES ABSOLUTE COUNT (BEAKER) (test 0.67 K/ L 0.00-1.30 fsvs=750) EOSINOPHILS ABSOLUTE COUNT (BEAKER) (test 0.33 K/ L 0.00-0.50 qnbg=001) BASOPHILS ABSOLUTE COUNT (BEAKER) (test 0.08 K/ L 0.00-0.20 hzkg=193) 0.00PROTHROMBIN TIME/[id number] 15:14:00 Test Item Value Reference Range Comments PROTIME (BEAKER) (test xzcx=789) 13.0 seconds 11.7-14.7 INR (NATYAKER) (test pmnb=549) 1.0 <=5.9 RECOMMENDED COUMADIN/WARFARIN INR THERAPY RANGESSTANDARD DOSE: 2.0 - 3.0 Includes: PROPHYLAXIS forvenous thrombosis, systemic embolization; TREATMENT for venous thrombosis and/or pulmonary embolus.HIGH RISK: Target INR is 2.5-3.5 for patients with mechanical heart valves.
[2018-06-07] MEDS ORDERED: FAMOTIDINE 20 MG/2 ML VIAL IV ONE (15:59)
[2018-06-07] MEDS ORDERED: NA CHLORIDE 0.9% 1,000 ML ONE (15:59)
[2018-06-07 16:06] LABS: Absolute Lymphocytes (CBC) 2.5 K/uL (0.7-4.9); Absolute Monocytes 0.8 K/uL (0.1-1.3); Absolute Neutrophil 4.9 K/uL (1.8-8.0); Basophils % 0.9 % (0-1.3); Hematocrit 49.1 % (39.6-49.0); Lymphocytes % 29.3 % (15.3-44.8); MPV 10.1 fL (7.6-11.3); Monocytes % 8.9 % (3.3-12.3); RBC Red Blood Cell Count 6.08 M/uL (4.33-5.43)
[2018-06-07 16:10] LABS: Protime INR 1.04
--- NOTE | 2018-06-07 16:22 | RAD REPORT ---
EXAM DESCRIPTION: RAD - Chest Single View - 06/07/2018 4:08 pm CLINICAL HISTORY: CHEST PAIN Chest pain. COMPARISON: CHEST SINGLE VIEW dated 02/27/2010 FINDINGS: Portable technique limits examination quality. The lungs are grossly clear. The heart is normal in size. No displaced fractures. IMPRESSION: No acute intrathoracic process suspected.
[2018-06-07 16:36] LABS: ALT/SGPT 75 U/L (12-78); AST/SGOT 53 U/L (15-37); Albumin 4.4 g/dL (3.4-5.0); Alkaline Phosphatase 86 U/L (45-117); BUN Blood Urea Nitrogen 14 mg/dL (7-18); Bicarbonate 27 mmol/L (21-32); Bilirubin Direct < 0.1 mg/dL (0-0.2); Bilirubin Total 0.3 mg/dL (0.2-1.0); Glucose Level 89 mg/dL (74-106); NT PRO-BNP 8 pg/mL (<125); Protein, Total 8.7 g/dL (6.4-8.2); Sodium Level 139 mmol/L (136-145); Troponin (Emerg Dept Use Only) < 0.02 ng/mL (0.0-0.045)
--- NOTE | 2018-06-07 16:41 | EDPHYS ---
Physician Documentation [facility] Name: Miguel Hayes Age: 48 yrs Sex: Male : 1970 Arrival Date: 06/07/2018 Time: 15:22 Bed 7 Private MD: Maribel Fisher F ED Physician Romain Toro HPI: 06/07 16:37 This 48 yrs old Male presents to ER via Wheelchair with complaints of Chest shea Pain. 16:37 The patient or guardian reports chest pain that is located primarily in the substernal shea area. Onset: 2 day(s) ago. The pain radiates to the left arm. Associated signs and symptoms: The patient has no apparent associated signs or symptoms. The chest pain is described as a pressure. Modifying factors: The symptoms are alleviated by nothing. the symptoms are aggravated by nothing. Severity of pain: At its worst the pain was mild in the emergency department the pain is unchanged. The patient has not experienced similar symptoms in the past. Historical: - Allergies: 15:29 No Known Allergies; tw2 - Home Meds: 15:29 "liver experimential druge" [Active]; tw2 - PMHx: 15:29 liver failure; tw2 - PSHx: 15:29 left foot; tw2 - Immunization history:: Adult Immunizations. - Social history:: Smoking status: . - Ebola Screening: : Patient denies travel to an Ebola-affected area in the 21 days before illness onset. - Family history:: not pertinent. ROS: 16:37 Constitutional: Negative for fever, chills, and weight loss, Eyes: Negative for injury, shea pain, redness, and discharge, ENT: Negative for injury, pain, and discharge, Neck: Negative for injury, pain, and swelling, Respiratory: Negative for shortness of breath, cough, wheezing, and pleuritic chest pain, Abdomen/GI: Negative for abdominal pain, nausea, vomiting, diarrhea, and constipation, Back: Negative for injury and pain, : Negative for injury, bleeding, discharge, and swelling, MS/Extremity: Negative for injury and deformity, Skin: Negative for injury, rash, and discoloration, Neuro: Negative for headache, weakness, numbness, tingling, and seizure, Psych: Negative for depression, anxiety, suicide ideation, homicidal ideation, and hallucinations, Allergy/Immunology: Negative for hives, rash, and allergies, Endocrine: Negative for neck swelling, polydipsia, polyuria, polyphagia, and marked weight changes, Hematologic/Lymphatic: Negative for swollen nodes, abnormal bleeding, and unusual bruising. 16:37 Cardiovascular: Positive for chest pain. 16:37 MS/extremity: Negative for decreased range of motion, pain. Exam: 16:37 Constitutional: This is a well developed, well nourished patient who is awake, alert, shea and in no acute distress. Head/Face: Normocephalic, atraumatic. Eyes: Pupils equal round and reactive to light, extra-ocular motions intact. Lids and lashes normal. Conjunctiva and sclera are non-icteric and not injected. Cornea within normal limits. Periorbital areas with no swelling, redness, or edema. ENT: Nares patent. No nasal discharge, no septal abnormalities noted. Tympanic membranes are normal and external auditory canals are clear. Oropharynx with no redness, swelling, or masses, exudates, or evidence of obstruction, uvula midline. Mucous membranes moist. Neck: Trachea midline, no thyromegaly or masses palpated, and no cervical lymphadenopathy. Supple, full range of motion without nuchal rigidity, or vertebral point tenderness. No Meningismus. Chest/axilla: Normal chest wall appearance and motion. Nontender with no deformity. No lesions are appreciated. Cardiovascular: Regular rate and rhythm with a normal S1 and S2. No gallops, murmurs, or rubs. Normal PMI, no JVD. No pulse deficits. Respiratory: Lungs have equal breath sounds bilaterally, clear to auscultation and percussion. No rales, rhonchi or wheezes noted. No increased work of breathing, no retractions or nasal flaring. Abdomen/GI: Soft, non-tender, with normal bowel sounds. No distension or tympany. No guarding or rebound. No evidence of tenderness throughout. Back: No spinal tenderness. No costovertebral tenderness. Full range of motion. Male : Normal genitalia with no discharge or lesions. Skin: Warm, dry with normal turgor. Normal color with no rashes, no lesions, and no evidence of cellulitis. MS/ Extremity: Pulses equal, no cyanosis. Neurovascular intact. Full, normal range of motion. Neuro: Awake and alert, GCS 15, oriented to person, place, time, and situation. Cranial nerves II-XII grossly intact. Motor strength 5/5 in all extremities. Sensory grossly intact. Cerebellar exam normal. Normal gait. Psych: Awake, alert, with orientation to person, place and time. Behavior, mood, and affect are within normal limits. Vital Signs: 15:26 BP 140 / 87; Pulse 89; Resp 17; Temp 97.7(TE); Pulse Ox 95% on R/A; Weight 104.33 kg tw2 (R); Height 5 ft. 11 in. (180.34 cm); Pain 8/10; 16:20 Pulse 80; Resp 16; Pulse Ox 99% ; sv 17:00 BP 137 / 82; Pulse 76 MON; Resp 18; Pulse Ox 97% on R/A; sv 17:44 BP 123 / 76; Pulse 72; Resp 18; Pulse Ox 96% ; sv 18:30 BP 113 / 71; Pulse 68; Resp 24; Pulse Ox 96% ; sv 19:19 BP 116 / 72; Pulse 67; Resp 18; Pulse Ox 96% on R/A; Pain 0/10; aa1 20:25 BP 120 / 79; Pulse 73; Resp 20; Temp 97.9; Pulse Ox 97% on R/A; Pain 0/10; aa1 15:26 Body Mass Index 32.08 (104.33 kg, 180.34 cm) tw2 17:00 Sinus Rhythm sv 15:26 currently 0/10, comes and goes tw2 MDM: 15:35 Patient medically screened. [facility] 16:39 Data reviewed: vital signs, nurses notes, lab test result(s), EKG, radiologic studies, shea plain films. 06/07 15:34 Order name: Basic Metabolic Panel; Complete Time: 16:37 sv 06/07 15:34 Order name: CBC with Diff; Complete Time: 16:32 sv 06/07 15:34 Order name: LFT's; Complete Time: 16:37 sv 06/07 15:34 Order name: Magnesium; Complete Time: 16:37 sv 06/07 15:34 Order name: NT PRO-BNP; Complete Time: 16:37 sv 06/07 15:34 Order name: PT-INR; Complete Time: 16:32 sv 06/07 15:34 Order name: Troponin (emerg Dept Use Only); Complete Time: 16:37 sv 06/07 15:34 Order name: XRAY Chest (1 view); Complete Time: 16:32 sv 06/07 15:37 Order name: Lipase; Complete Time: 16:32 shea 06/07 15:37 Order name: AMMONIA; Complete Time: 16:32 [facility] 06/07 19:35 Order name: Urine Dipstick--Ancillary (enter results) 2 06/07 20:30 Order name: Urine Dipstick-Ancillary [facility] 06/07 15:34 Order name: EKG; Complete Time: 15:34 sv 06/07 15:34 Order name: Cardiac monitoring; Complete Time: 15:48 sv 06/07 15:34 Order name: EKG - Nurse/Tech; Complete Time: 15:53 sv 06/07 15:34 Order name: IV Saline Lock; Complete Time: 15:48 sv 06/07 15:34 Order name: Labs collected and sent; Complete Time: 15:48 sv 06/07 15:34 Order name: O2 Per Protocol; Complete Time: 15:48 06/07 15:34 Order name: O2 Sat Monitoring; Complete Time: 15:48 sv 06/07 15:37 Order name: Urine Dipstick-Ancillary (obtain specimen); Complete Time: 19:29 [facility] 06/07 16:45 Order name: CONS Physician Consult EDVA Administered Medications: 15:54 Drug: NS 0.9% 1000 ml Route: IV; Rate: 75 ml/hr; Site: right antecubital; ph 19:22 Follow up: IV Status: Infusion continued upon admission aa1 15:54 Drug: Pepcid 20 mg Route: IVP; Site: right antecubital; ph 16:32 Follow up: Response: No adverse reaction sv 17:11 Drug: Aspirin 162 mg Route: PO; sv 17:43 Follow up: Response: No adverse reaction sv 17:11 Drug: Lopressor 25 mg Route: PO; sv 17:43 Follow up: Response: No adverse reaction sv 17:11 Drug: Lovenox 100 mg Route: Sub-Q; Site: right lower abdomen; sv 17:43 Follow up: Response: No adverse reaction sv Disposition: 06/07/18 16:40 Hospitalization ordered by Maribel Fisher for Observation. Preliminary diagnosis are Other chest pain, Unspecified cirrhosis of liver, Essential (primary) hypertension. - Bed requested for Telemetry/MedSurg (observation). - Status is Observation. aa1 - Condition is Stable. - Problem is new. - Symptoms have improved. UTI on Admission? No Signatures: Dispatcher [employer] EDCalire Salcedo, RN RN Frida Lezama RN RN dw Autenrieth, Alissa, RN RN aa1 Romain Toro MD MD cha Hall, Patricia RN RN Linda Mak RN RN tw2 Corrections: (The following items were deleted from the chart) 18:32 16:40 Hospitalization Ordered by Maribel Fisher MD for Observation. Preliminary dw diagnosis is Other chest pain; Unspecified cirrhosis of liver; Essential (primary) hypertension. Bed requested for Telemetry/MedSurg (observation). Status is Observation. Condition is Stable. Problem is new. Symptoms have improved. UTI on Admission? No. shea 21:11 18:32 06/07/2018 16:40 Hospitalization Ordered by Maribel Fisher MD for Observation. aa1 Preliminary diagnosis is Other chest pain; Unspecified cirrhosis of liver; Essential (primary) hypertension. Bed requested for Telemetry/MedSurg (observation). Status is Observation. Condition is Stable. Problem is new. Symptoms have improved. UTI on Admission? No. dw
--- NOTE | 2018-06-07 16:41 | ER ---
Nurse's Notes [facility] Name: Miguel Hayes Age: 48 yrs Sex: Male : 1970 Arrival Date: 06/07/2018 Time: 15:22 Bed 7 Private MD: Mraibel Fisher F Diagnosis: Other chest pain;Unspecified cirrhosis of liver;Essential (primary) hypertension Presentation: 06/07 15:25 Presenting complaint: Patient states: my chest pain started a month ago, i thought it tw2 was heartburn, yesterday it made me nauseous and was only left, jaw pain. Transition of care: patient was not received from another setting of care. Onset of symptoms was June 07, 2018. Risk Assessment: Do you want to hurt yourself or someone else? Patient reports no desire to harm self or others. Initial Sepsis Screen: Does the patient meet any 2 criteria? No. Patient's initial sepsis screen is negative. Does the patient have a suspected source of infection? No. Patient's initial sepsis screen is negative. Care prior to arrival: None. 15:25 Method Of Arrival: Wheelchair tw2 15:25 Acuity: KAITLYN 3 tw2 Triage Assessment: 15:27 General: Appears in no apparent distress. Behavior is calm, cooperative, appropriate tw2 for age. Pain: Complains of pain in chest. Cardiovascular: Reports chest pain, shortness of breath, right jaw pain, left arm going numb, but it comes and goes. Historical: - Allergies: 15:29 No Known Allergies; tw2 - Home Meds: 15:29 "liver experimential druge" [Active]; tw2 - PMHx: 15:29 liver failure; tw2 - PSHx: 15:29 left foot; tw2 - Immunization history:: Adult Immunizations. - Social history:: Smoking status: . - Ebola Screening: : Patient denies travel to an Ebola-affected area in the 21 days before illness onset. - Family history:: not pertinent. Screenin:52 Abuse screen: Denies threats or abuse. Denies injuries from another. Nutritional sv screening: No deficits noted. Tuberculosis screening: No symptoms or risk factors identified. Fall Risk None identified. Assessment: 15:40 General: Appears in no apparent distress. comfortable, well groomed, well developed, sv Behavior is calm, cooperative, appropriate for age. Pain: Complains of pain in chest Pain radiates to left mandible Pain currently is 8 out of 10 on a pain scale. Pain began a few weeks ago and resolved. Stated that it happened again Wednesday and resolved and then happened again this morning. Is intermittent. Neuro: Level of Consciousness is awake, alert, obeys commands, Oriented to person, place, time, situation, Moves all extremities. Full function Gait is steady, Speech is normal. Cardiovascular: Denies shortness of breath, Patient's skin is warm and dry. Pulses are 3+ in right brachial artery and left brachial artery Rhythm is sinus rhythm. Respiratory: Airway is patent Respiratory effort is even, unlabored, Respiratory pattern is regular, symmetrical. Derm: Skin is pink, warm \\T\\ dry. Musculoskeletal: Range of motion: intact in all extremities. 17:12 Reassessment: Patient appears in no apparent distress at this time. No changes from sv previously documented assessment. Patient and/or family updated on plan of care and expected duration. Pain level reassessed. Patient is alert, oriented x 3, equal unlabored respirations, skin warm/dry/pink. Family at the bedside. 19:19 Reassessment: Patient appears in no apparent distress at this time. Patient and/or aa1 family updated on plan of care and expected duration. Pain level reassessed. Patient is alert, oriented x 3, equal unlabored respirations, skin warm/dry/pink. Pt to be admitted, will call report once floor has completed shift change and nurse is available for report. 19:30 Reassessment: Attempted to call report to 4th floor; phone rang without answer. Will aa1 call back. 19:38 Reassessment: Attempted to call report again, phone was answered but was then hung up. aa1 Will continue to attempt to call report. 19:42 Reassessment: Attempted to call report for 3rd time; was placed on hold with no answer. aa1 20:25 Reassessment: Patient appears in no apparent distress at this time. Patient is alert, aa1 oriented x 3, equal unlabored respirations, skin warm/dry/pink. Report given to Anne on 4th floor Patient denies pain at this time. Vital Signs: 15:26 BP 140 / 87; Pulse 89; Resp 17; Temp 97.7(TE); Pulse Ox 95% on R/A; Weight 104.33 kg tw2 (R); Height 5 ft. 11 in. (180.34 cm); Pain 8/10; 16:20 Pulse 80; Resp 16; Pulse Ox 99% ; sv 17:00 BP 137 / 82; Pulse 76 MON; Resp 18; Pulse Ox 97% on R/A; sv 17:44 BP 123 / 76; Pulse 72; Resp 18; Pulse Ox 96% ; sv 18:30 BP 113 / 71; Pulse 68; Resp 24; Pulse Ox 96% ; sv 19:19 BP 116 / 72; Pulse 67; Resp 18; Pulse Ox 96% on R/A; Pain 0/10; aa1 20:25 BP 120 / 79; Pulse 73; Resp 20; Temp 97.9; Pulse Ox 97% on R/A; Pain 0/10; aa1 15:26 Body Mass Index 32.08 (104.33 kg, 180.34 cm) tw2 17:00 Sinus Rhythm sv 15:26 currently 0/10, comes and goes tw2 ED Course: 15:22 Patient arrived in ED. mr 15:22 Maribel Fisher MD is Private Physician. mr 15:26 Triage completed. tw2 15:26 Arm band placed on. tw2 15:33 Claire Nugent, MATEO is Primary Nurse. sv 15:35 Romain Toro MD is Attending Physician. shea 15:36 EKG done, by optics technical officer. reviewed by Romain Toro MD. sm3 15:40 ekg monitor on. Pulse ox on. NIBP on. Door closed. Head of bed elevated. sv 15:45 Initial lab(s) drawn, by ED staff, sent to lab. Inserted saline lock: 20 gauge in right sv antecubital area, using aseptic technique. ,using aseptic technique. done by [place] Blood collected. Patient maintains SpO2 saturation greater than 95% on room air. 15:52 Patient has correct armband on for positive identification. Placed in gown. Bed in low sv position. Call light in reach. 15:55 Awaiting lab results, Awaiting ED provider evaluation. sv 16:08 XRAY Chest (1 view) In Process Unspecified. EDMS 16:39 Maribel Fisher MD is Hospitalizing Provider. shea 17:17 Awaiting bed assignment. sv 17:51 Awaiting bed assignment. sv 19:06 Report given to vE GALINDO. sv 19:06 No provider procedures requiring assistance completed. Patient admitted, IV remains in sv place. intact. 19:08 Primary Nurse role handed off by Claire Nugent RN sv 19:27 Urine collected: clean catch specimen, ivan colored. aa1 Administered Medications: 15:54 Drug: NS 0.9% 1000 ml Route: IV; Rate: 75 ml/hr; Site: right antecubital; ph 19:22 Follow up: IV Status: Infusion continued upon admission aa1 15:54 Drug: Pepcid 20 mg Route: IVP; Site: right antecubital; ph 16:32 Follow up: Response: No adverse reaction sv 17:11 Drug: Aspirin 162 mg Route: PO; sv 17:43 Follow up: Response: No adverse reaction sv 17:11 Drug: Lopressor 25 mg Route: PO; sv 17:43 Follow up: Response: No adverse reaction sv 17:11 Drug: Lovenox 100 mg Route: Sub-Q; Site: right lower abdomen; sv 17:43 Follow up: Response: No adverse reaction sv Outcome: 16:40 Decision to Hospitalize by Provider. [facility] 20:27 Admitted to Tele accompanied by tech, via wheelchair, room 406, with chart, Report aa1 called to [facility] 20:27 Condition: stable 20:27 Discharge instructions given to Instructed on the need for admit, Demonstrated understanding of instructions. 20:30 Patient left the ED. aa1 Signatures: Dispatcher [employer] EDMS Claire Nugent RN RN Ev Kirkpatrick RN RN aa1 Romain Toro MD MD cha Rivera, Mary mr Hall, Patricia, RN RN Linda Mak RN RN 2 Silvia Patel 3 Corrections: (The following items were deleted from the chart) 17:12 14:30 Pulse 80bpm; Resp 16bpm; Pulse Ox 99%; sv sv 21:12 21:11 Patient left the ED. aa1 aa1
[2018-06-07] MEDS ORDERED: ENOXAPARIN 100 MG/ML SYR SQ ONE (17:08)
[2018-06-07] MEDS ORDERED: METOPROLOL TAR 25 MG TAB ONE (17:08)
[2018-06-07] MEDS ORDERED: ASPIRIN 81 MG CHEWABLE TABLET ONE (17:08)
[2018-06-07 20:29] LABS: Urine Blood NEGATIVE (NEG); Urine Glucose NEGATIVE (NEG); Urine Protein NEGATIVE (NEG); Urine pH 5.5 (5.0-7.0)
[2018-06-07] MEDS: FAMOTIDINE 20 MG/2 ML VIAL IV SCH (21:07)
[2018-06-07] MEDS ORDERED: MORPHINE 4 MG/ML SYR IV PRN (21:07)
[2018-06-07] MEDS ORDERED: ACETAMINOPHEN 500 MG TAB PO PRN (21:07)
[2018-06-07] MEDS: METOPROLOL TAR 25 MG TAB PO SCH (21:07)
[2018-06-07] MEDS ORDERED: ONDANSETRON 4 MG/2 ML VIAL IV PRN (21:07)
[2018-06-07] MEDS: ENOXAPARIN 100 MG/ML SYR SQ SCH (21:07)
[2018-06-07 21:17] VITALS: BMI 33.3
[2018-06-08 03:41] LABS: Absolute Lymphocytes (CBC) 2.9 K/uL (0.7-4.9); Absolute Monocytes 0.6 K/uL (0.1-1.3); Basophils % 0.7 % (0-1.3); Eosinophils % 2.9 % (0-4.4); Hematocrit 43.5 % (39.6-49.0); Lymphocytes % 42.5 % (15.3-44.8); MPV 10.2 fL (7.6-11.3); Monocytes % 9.2 % (3.3-12.3); RBC Red Blood Cell Count 5.43 M/uL (4.33-5.43)
[2018-06-08 03:56] LABS: Potassium 4.4 mmol/L (3.5-5.1)
[2018-06-08] MEDS: METOPROLOL TAR 25 MG TAB PO SCH ×2 (06:01→16:43)
[2018-06-08] MEDS: FAMOTIDINE 20 MG/2 ML VIAL IV SCH ×2 (08:55→20:17)
[2018-06-08] MEDS ORDERED: REGADENOSON 0.4 MG/5 ML SYR IV ONE (10:34)
--- NOTE | 2018-06-08 10:35 | ECHO ---
HEIGHT: 5 ft 10 in WEIGHT: 231 lb 12.8 oz DATE OF STUDY: 06/08/[address]: Romain Toro MD 2-DIMENSIONAL: YES M.MODE: YES DOPPLER: YES COLOR FLOW: YES TDS: NO PORTABLE: NO DEFINITY: NO BUBBLE STUDY: NO DIAGNOSIS: CHEST PAIN CARDIAC HISTORY: CATHERIZATION: NO SURGERY: NO PROSTHETIC VALVE: NO PACEMAKER: NO MEASUREMENTS (cm) DIASTOLIC (NORMALS) SYSTOLIC (NORMALS) IVSd 0.9 (0.6-1.2) LA Diam 3.9 (1.9-4.0) LVEF 65% LVIDd 4.0 (3.5-5.7) LVIDs 2.6 (2.0-3.5) %FS 35% LVPWd 1.1 (0.6-1.2) Ao Diam 2.7 (2.0-3.7) 2 DIMENSIONAL ASSESSMENT: RIGHT ATRIUM: NORMAL LEFT ATRIUM: NORMAL RIGHT VENTRICLE: NORMAL LEFT VENTRICLE: NORMAL TRICUSPID VALVE: NORMAL MITRAL VALVE: NORMAL PULMONIC VALVE: NORMAL AORTIC VALVE: NORMAL PERICARDIAL EFFUSION: NONE AORTIC ROOT: NORMAL LEFT VENTRICULAR WALL MOTION: NORMAL. DOPPLER/COLOR FLOW: NORMAL. COMMENTS: NORMAL 2D ECHO WITH DOPPLER. TECHNOLOGIST: YESSICA NEWSOME
[2018-06-08] MEDS: ASPIRIN EC 81 MG TAB PO SCH (13:00)
[2018-06-08] MEDS: ENOXAPARIN 100 MG/ML SYR SQ SCH (13:00)
--- NOTE | 2018-06-08 13:31 | RAD REPORT ---
EXAM DESCRIPTION: NM - Rest Stress Cardiac Imaging - 06/08/2018 1:23 pm CLINICAL HISTORY: CP Chest pain. COMPARISON: No comparisons TECHNIQUE: The patient was administered approximately 10mCi of Tc 99m Sestamibi prior to resting SPE CT imaging of the heart. The patient was then administered approximately 30 mCi of Tc 99m Sestamibi f ollowing exercise or pharmacologic stress. Multiplanar SPECT images were reviewed. FINDINGS: No stress induced ischemic defect is seen to suggest stress induced ischemia. No fixed def ect is seen to suggest hibernating myocardium or scarred myocardium. The end diastolic volume is 99 ml, the end systolic volume is 34 ml, and the ejection fraction is 66 %. IMPRESSION: No stress induced ischemia.
--- NOTE | 2018-06-08 13:44 | CON ---
History Of Present Illness: Mr. Hayes is 48. He had an episode of chest pain, it was actually 3 or 4, all within a few hours, each one lasted 3 or 4 minutes. He had one while he was hooked up to Bindo metry and there was not any arrhythmia that we saw. He does not have diabetes, hypertension, dyslipi demia, or history of heart disease. He does not use tobacco. He has hepatic steatosis with cirrhosi s and he is on experimental medication Tropifexor to treat that and it seems to be helping him. He d oes not have advanced liver failure or elevated INR or bilirubin. The chest pain he had was central chest radiating to the left shoulder. There was a sensation of flushing. Physical Examination: General: He is alert, oriented, pleasant. Vital Signs: 5 feet 10 inch, 131 pounds HEENT: Normal. Lungs: Clear. Cardiac: Normal. Abdomen: Soft. Extremities: . Outpatient Medications: Just the experimental cirrhosis medicine Laboratory Exam: All normal troponins. Normal complete blood count. Blood sugar 89, creatinine 1.1 . I have recommended we do a pharmacologic nuclear stress test and if that is abnormal, we will proceed with cardiac cath. JOSE/YARI Voice ID: [id number] Report ID: [id number]
--- NOTE | 2018-06-08 17:03 | TREADPHA ---
DX: CHEST PAIN Date of Study: 06/08/18 Ht: 5 10 Wt: 231 lb 12.8 oz Consulting Physician: RENÉ MEDICATIONS: TYLENOL, ASPIRIN, LOVENOX, LOPRESSOR, ZOFRAN. HISTORY: 48 YEAR MALE WITH COMPLAINTS OF CHEST PAIN. HISTORY: LIVER FAILURE. PHYSICIAL EXAMINATION: RESTING B.P.: 131/94 RESTING H.R.: 63 RESTING EKG: NORMAL PROTOCOL: LEXISCAN EXERCISE TIME: 3:30 B.P. AT PEAK STRESS: 138/83 IMPRESSION: LEXISCAN INJECTED, CARDIOLITE INJECTED PER PROTOCOL. SEE NUCLEAR MEDICINE REPORT. NO SUPRAVENTRICULAR TACHYCARDIA, NO VENTRICULAR TACHYCARDIA, AND NO PREMATURE VENTRICULAR COMPLEXS. DENIED CHEST PAIN. NON-DIAGNOSTIC ELECTROCARDIOGRAM LEXISCAN WITH STRESS.
[2018-06-09] MEDS: METOPROLOL TAR 25 MG TAB PO SCH (06:08)
[2018-06-09 08:08] VITALS: BP 129/72; TEMP 96.7
[2018-06-09 08:28] VITALS: O2SAT 97
[2018-06-09] MEDS: ASPIRIN EC 81 MG TAB PO SCH (09:59)
[2018-06-09] MEDS: FAMOTIDINE 20 MG/2 ML VIAL IV SCH (10:00)
--- NOTE | 2018-06-14 11:07 | EKG ---
Test Date: 2018-06-07 Test Time: 15:33:27 Deputy [employer] [place] Marshal: HERB MEASUREMENT RESULTS: Intervals: Rate: 76 LA: 146 QRSD: 82 QT: 344 QTc: 387 [place]: P: 34 LA: 146 QRS: 56 T: -6 INTERPRETIVE STATEMENTS: Normal sinus rhythm Normal ECG Compared to ECG 02/27/2010 05:51:33 no significant change from previous ECG Electronically Signed On 06-07-18 16:57:18 CDT by August Corrales
--- NOTE | 2018-06-14 11:11 | EKG ---
Test Date: 2018-06-07 Test Time: 22:52:20 Plant Senior Manager: HARPAL MEASUREMENT RESULTS: Intervals: Rate: 72 CO: 176 QRSD: 84 QT: 362 QTc: 396 [place]: P: 20 CO: 176 QRS: 24 T: -4 INTERPRETIVE STATEMENTS: Normal sinus rhythm Normal ECG Compared to ECG 06/07/2018 15:33:27 No significant changes Electronically Signed On 06-08-18 05:45:16 CDT by August Corrales
== END 2018-06-09 11:10 | disposition home or self-care (01) ==
LOC: ER 15:19 → ERHOLD 16:42 → 4TH 20:28
PROVIDERS: ADMIT Internal Medicine; ATTEND Internal Medicine
DX: R07.9 Chest pain, unspecified (principal); K76.0 Fatty (change of) liver, not elsewhere classified; K74.60 Unspecified cirrhosis of liver
CPT/HCPCS: 36415; 71045; 78452; 80048; 80076; 81003; 82140; 83690; 83735; 83880; 84484; 85025; 85610; 93005; 93017; 93306; 96361; 96372; 96374; 99285; A9500; G0378; J1650; J2785; J7030

== ENCOUNTER 2020-06-15 10:11 | Emergency (ER) | payer OTHER ==
--- OUTSIDE RECORDS SUMMARY | 2020-06-15 10:15 | XMS REPORT | Continuity of Care Document ---
:1970 Author Organization [facility] t Address [address] [place] [address] Care Team Providers Name Role Phone Latrell Fisher MD Primary Care Physician Hoang STODDARD Attending Clinician Unavailable Roosevelt Rogers MD Attending Clinician Vikram Jenkins Attending Clinician Roosevelt ROGERS Attending Clinician Unavailable Mando STODDARD Attending Clinician Unavailable JOSE J COREA Attending Clinician Unavailable JONNY ORTEGA Attending Clinician Unavailable JOSE J COREA Admitting Clinician Unavailable Payers Payer Name Policy Type Policy Effective Date Expiration Date Sour ce Number [facility] [id number] 2017 JACEK Ruizgeoff - MGD CAREUNITED 00:00:00 - Medica l HMO POS [facility] [id number]/ 03/2017-PresentHMO /POS Problems Condition Condition Condition Status Onset Resolution Last Treating Co mments Source Name Details Category Date Date Treatment Clinician Date 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 liver liver 03-30 Assessbashir Quintero - disease, disease, 00:00: t & Plan: Med ical nonalcohol nonalcohol 00 Diagnosis Center ic ic of fatty liver based on imaging. Risk factor for fatty liver includes obesity and family history of ONEAL cirrhosis . He has no prior history of HLD or diabetes. We will check fasting lipids, insulin and HbA1C. We recommend ed a 10% weight loss, which dispropor tionately decreases visceral fat and can ameliorat e hepatic steatosis and steatohep atitis by 95-100%. We recommend ed a modified Gemma's diet, substitut ing vegetable s for wheat, corn, potato or rice or foods made from the flours of these carbohydr ates. Obesity Obesity Disease Active 2014-[address] [facility] [address] 03-30 [facility] - 00:00: t & Plan: Medical 00 Obesity Center is a risk factor for NAFLD. We discussed weight loss with dietary modificat ion and exercise. See discussio n in NAFLD section. Elevated Elevated Disease Active 2014-[address] [facility] S t liver liver 03-30 [facility] - enzymes enzymes 00:00: t & Plan: Medic al 00 Patient Center has elevated liver enzymes with predomina nt hepatocel lular pattern of injury. Comprehen sive work up for etiology of elevated liver enzymes including SAM, AMA, Anti Sm, Anti LKM-1, ceruplasm in, A1-antitr ypsin done by Dr. Amado is negative. S. Ferritin was elevated to 1501 with normal % transferr in saturatio n. Anti Hep C and HIV negative. We don't have Hep A and B serologie s but per patient it was checked and negative. Likely etiology for elevated liver enzyme is ONEAL, however typically this degree of AST/ALT elevation is not seen. Diagnosis of ONEAL is presumed based on improveme nt in AST/ALT with weight loss, family history of ONEAL cirrhosis in mother. We will repeat lab work today. We will consider liver biopsy for further work up based on lab result on next clinic visit. Family Family Disease Active 2014-03 [facility] history of history of 03-30 [facility] - atheroscle atheroscle 00:00: t & Plan: Medical rosis rosis 00 Family Center history of diabetes in mom and dad, and premature CAD in father is a risk factor for diabetes and atheroscl erosis in patient. We will check fasting lipids, HbA1C and insulin level. Further recommend ations to follow. Immunity Immunity Disease Active 2014-[address] [facility] S t status status 03-30 [facility] - testing testing 00:00: t & Plan: Medic al 00 We will Center test for immunity against Hep A and Hep B. Immunizat ion recommend ations to follow. Iron Iron Disease Active 2014-03 Last [facility] overload overload 03-30 Assessmen Karmen es - 00:00: t & Plan: Medical Serum Center ferritin was elevated to 1501 with normal % transferr in [facility] n. Elevated ferritin could be because of underlyin g ONEAL, but typically this degree of elevation is not seen. We will repeat iron studies and check HFE mutation analysis. If liver biopsy is performed in future we will also perform iron staining. Allergies, Adverse Reactions, Alerts This patient has no known allergies or adverse reactions. Family History Family Member Diagnosis Comments Start Date Stop Date Source Natural mother Other [facility] Natural mother Diabetes [facility] Natural father Diabetes [facility] Natural father Heart disease [facility] Natural father Kidney failure [facility] Social History Social Habit Start Date Stop Date Quantity Comments Source Sex Assigned At [facility] Tobacco use and 2019-05-16 2019-05-16 Never used [facility] exposure 00:00:00 00:00:00 [facility] Alcohol intake 2019-05-16 2019-05-[address] [facility] 00:00:00 00:00:00 non-drinker of Medical nter alcohol (finding) Smoking Status Start Date Stop Date Source Never smoker [facility] Medications Ordered Filled Start Stop Current Ordering Indication Dosage Frequency Signature Comments Components Source Medication Medication Date Date Medication? Clinician (SIG) Name Name aspirin 81 2019- Yes 81mg QD Take [address] [facility] 9-08 by mouth [facility] - tablet 09:23: daily. [address] Vital Signs Vital Name Observation Time Observation Value Comments Source Systolic blood 2019-11-14 08:47:00 148 mm[Hg] [facility] Diastolic blood 2019-11-14 08:47:00 89 mm[Hg] [facility] S [facility] Heart rate 2019-11-14 08:47:00 72 /min [facility] Body temperature 2019-11-14 08:47:00 36.28 Nancy [facility] Respiratory rate 2019-11-14 08:47:00 18 /min [facility] Body height 2019-11-14 08:47:00 177.8 cm [facility] Body weight 2019-11-14 08:47:00 107.956 kg [facility] BMI 2019-11-14 08:47:00 34.15 kg/m2 [facility] Oxygen saturation in 2019-11-14 08:47:00 97 /min [facility] - Arterial blood by Medical Ce nter Pulse oximetry Procedures Procedure Date / Time Performed Performing Clinician [facility] e BASIC METABOLIC PANEL 2019-11-14 10:13:00 Rosas, Line Kast[place] [facility] St [facility] (7) [facility] HEPATIC FUNCTION PANEL 2019-11-14 10:13:00 Rosas, Line Kastru p [facility] CBC W/PLT COUNT & AUTO 2019-11-14 10:13:00 Rosas, Line Kastru p [facility] DIFFERENTIAL [facility] Center FERRITIN 2019-11-14 10:13:00 Rosas Line [facility] S [facility] Plan of Care Planned Activity Planned Date Details Comments Source Future Scheduled 2020-11-[address] [facility] - Test 00:00:00 (Season Ended) [code Medical Center = INFLUENZA VACCINE (Season Ended)] Future Scheduled 2020-03-[address] [facility] - Test 00:00:00 (12+) [code = [facility] DEPRESSION SCREENING (12+)] Future Scheduled 2019-04-[address] [facility] - Test 00:00:00 (procedure) [code = [facility] 97770439] Future Scheduled 2018 SHINGLES VACCINES ([address] [facility] - Test 00:00:00 of 2) [code = [facility] SHINGLES VACCINES (1 of 2)] Future Scheduled 1987 DTAP/TDAP/TD VACCINES [facility] Test 00:00:00 (1 - Tdap) [code = Medical enter DTAP/TDAP/TD VACCINES (1 - Tdap)] Future Scheduled [address] [facility] - Test 00:00:00 malignant neoplasm of [facility] colon (procedure) [code = 836813172] Results Test Description Test Time Test Comments Results Result Comments Source Ferritin 2019-11-16 19:11:00 Test Item Value Reference Range Interpretation Comme nts Ferritin (test code = 2276-4) 418.88 ng/mL 5-275 H SULLY (test code = SULLY) Front Office Attendant ID - ROSYASI Lab Interpretation (test code = 64805-2) [facility]normal [facility] 19:11:00 Test Item Value Reference Range Interpretation Comments FERRITIN (BEAKER) (test code = 418.88 ng/mL 5.00-275.00 H 361) Front Office Attendant ID - EDASIBasic Metabolic [id number] 14:18:00 Test Item Value Reference Range Interpretation Comments Sodium (test code = 138 meq/L 517-447 2513-2) Potassium (test code = 4.3 meq/L 3.5-5.1 2823-3) Chloride (test code = 106 meq/L 98-107 2075-0) CO2 (test code = 24 meq/L 22-29 2028-9) BUN (test code = 13 mg/dL 7-21 3094-0) Creatinine (test code 0.96 mg/dL 0.57-1.25 = 2160-0) Glucose (test code = 118 mg/dL 70-105 H 2345-7) Calcium (test code = 8.8 mg/dL 8.4-10.2 91654-7) EGFR (test code = 83 mL/min/1.73 [place] [address]-9) NOT ACCURATE CREATININE CLEARANCE IN PREDICTING GLOMERULAR FILTRATION RATE . ESTIMATED GFR I S NOT APPLICABLE FOR DIALYSIS PATIENTS. SULLY (test code = SULLY) Front Office Attendant ID - COCO [place] Lab Interpretation Abnormal (test code = 72038-9) [facility] [id number] 14:18:00 Test Item Value Reference Range Interpretation Comments Protein, Total (test 8.0 See_Comment [Autom ated code = 6415-2) message] The system which generated this result transmit maxim reference range : 6.0 - 8.3 gm/dL . The reference range was not u sed to interpret th is result as normal/abnormal . Albumin (test code = 4.6 g/dL 3.5-5 85909-6) Total Bilirubin (test 0.7 mg/dL 0.2-1.2 code = 1975-2) Bilirubin, Direct 0.4 mg/dL 0.1-0.5 (test code = 1968-7) Alkaline Phosphatase 66 U/L 40-150 (test code = 6768-6) AST (test code = 69 U/L 5-34 H 1920-8) ALT (test code = 104 U/L 6-55 H 1742-6) SULLY (test code = SULLY) Front Office Attendant ID - COCO C Lab Interpretation Abnormal (test code = 91825-9) [facility] [id number] 14:18:00 Test Item Value Reference Range Interpretation Comments TOTAL PROTEIN (BEAKER) (test code = 8.0 gm/dL 6.0-8.3 770) ALBUMIN (BEAKER) (test code = 1145) 4.6 g/dL 3.5-5.0 BILIRUBIN TOTAL (BEAKER) (test code 0.7 mg/dL 0.2-1.2 = 377) BILIRUBIN DIRECT (BEAKER) (test 0.4 mg/dL 0.1-0.5 code = 706) ALKALINE PHOSPHATASE (BEAKER) (test 66 U/L 40-150 code = 346) AST (SGOT) (BEAKER) (test code = 69 U/L 5-34 H 353) ALT (SGPT) (BEAKER) (test code = 104 U/L 6-55 H 347) Front Office Attendant ID - COCO CBASIC METABOLIC [id number] 14:18:00 Test Item Value Reference Range Interpretation Comments SODIUM (BEAKER) 138 meq/L 136-145 (test code = 381) POTASSIUM (BEAKER) 4.3 meq/L 3.5-5.1 (test code = 379) CHLORIDE (BEAKER) 106 meq/L 98-107 (test code = 382) CO2 (BEAKER) (test 24 meq/L 22-29 code = 355) BLOOD UREA NITROGEN 13 mg/dL 7-21 (BEAKER) (test code = 354) CREATININE (BEAKER) 0.96 mg/dL 0.57-1.25 (test code = 358) GLUCOSE RANDOM 118 mg/dL 70-105 H (BEAKER) (test code = 652) CALCIUM (BEAKER) 8.8 mg/dL 8.4-10.2 (test code = 697) EGFR (BEAKER) (test 83 mL/min/1.73 ESTIMA MAXIM GFR IS code = 1092) sq m NOT ACCURATE CREATININE CLEARANCE IN PREDICTING GLOMERULAR FILTRATION RATE . ESTIMATED GFR I S NOT APPLICABLE FOR DIALYSIS PATIEN TS. Front Office Attendant ID - COCO CCBC with platelet count + automated [id number] 12:21:00 Test Item Value Reference Range Interpretation Comments WBC (test code = 6690-2) 7.0 See_Comment [A utomated message] The system [employer] generated this result transmitted ref erence range: 3.5 - 10 .5 K/L. The refe rence range was not u sed to interpret this result as normal/abnor mal. RBC (test code = 789-8) 5.74 See_Comment [Au tomated message] The system [employer] generated this result transmitted ref erence range: 4.63 - 6 .08 M/L. The refe rence range was not u sed to interpret this result as normal/abnor mal. MCHC (test code = 786-4) 32.1 See_Comment L [A utomated message] The system [employer] generated this result transmitted ref erence range: 32.3 - 3 6.5 GM/DL. The refe rence range was not u sed to interpret this result as normal/abnor mal. Hematocrit (test code = 48.3 % 40.1-51 4544-3) MCV (test code = 787-2) 84.1 fL 79-92.2 MCH (test code = 785-6) 27.0 pg 25.7-32.2 RDW (test code = 788-0) 14.0 % 11.6-14.4 Platelets (test code = 218 See_Comment [Aut omated message] 777-3) The system [employer] generated this result transmitted ref erence range: 150 - 45 0 K/CU MM. The referen ce range was not u sed to interpret this result as normal/abnor mal. MPV (test code = 11.9 fL 9.4-12.4 07979-2) nRBC (test code = 413) 0 See_Comment [Aut omated message] The system [employer] generated this result transmitted ref erence range: 0 - 0 /1 00 WBC. The refere nce range was not u sed to interpret this result as normal/abnor mal. % Neutros (test code = 60 % 429) % Lymphs (test code = 29 % 430) % Monos (test code = 7 % 431) % Eos (test code = 432) 2 % % Baso (test code = 437) 1 % # Neutros (test code = 4.23 See_Comment [Aut omated message] 670) The system [employer] generated this result transmitted ref erence range: 1.78 - 5 .38 K/L. The refe rence range was not u sed to interpret this result as normal/abnor mal. # Lymphs (test code = 2.04 See_Comment [Auto mated message] 414) The system [employer] generated this result transmitted ref erence range: 1.32 - 3 .57 K/L. The refe rence range was not u sed to interpret this result as normal/abnor mal. # Monos (test code = 0.52 See_Comment [Autom ated message] 415) The system [employer] generated this result transmitted ref erence range: 0.30 - 0 .82 K/L. The refe rence range was not u sed to interpret this result as normal/abnor mal. # Eos (test code = 416) 0.14 See_Comment [Au tomated message] The system [employer] generated this result transmitted ref erence range: 0.04 - 0 .54 K/L. The refe rence range was not u sed to interpret this result as normal/abnor mal. # Baso (test code = 417) 0.05 See_Comment [A utomated message] The system [employer] generated this result transmitted ref erence range: 0.01 - 0 .08 K/L. The refe rence range was not u sed to interpret this result as normal/abnor mal. Immature 1 % 0-1 Granulocytes-Relative (test code = 2801) Lab Interpretation (test Abnormal code = 87239-4) [facility] W/PLT COUNT & AUTO [id number] 12:21:00 Test Item Value Reference Range Interpretation Comments WHITE BLOOD CELL COUNT (BEAKER) 7.0 K/ L 3.5-10.5 (test code = 775) RED BLOOD CELL COUNT (BEAKER) 5.74 M/ L 4.63-6.08 (test code = 761) HEMOGLOBIN (BEAKER) (test code = 15.5 GM/DL 13.7-17.5 410) HEMATOCRIT (BEAKER) (test code = 48.3 % 40.1-51.0 411) MEAN CORPUSCULAR VOLUME (BEAKER) 84.1 fL 79.0-92.2 (test code = 753) MEAN CORPUSCULAR HEMOGLOBIN 27.0 pg 25.7-32.2 (BEAKER) (test code = 751) MEAN CORPUSCULAR HEMOGLOBIN CONC 32.1 GM/DL 32.3-36.5 L (BEAKER) (test code = 752) RED CELL DISTRIBUTION WIDTH 14.0 % 11.6-14.4 (BEAKER) (test code = 412) PLATELET COUNT (BEAKER) (test 218 K/CU MM 150-450 code = 756) MEAN PLATELET VOLUME (BEAKER) 11.9 fL 9.4-12.4 (test code = 754) NUCLEATED RED BLOOD CELLS 0 /100 WBC 0-0 (BEAKER) (test code = 413) NEUTROPHILS RELATIVE PERCENT 60 % (BEAKER) (test code = 429) LYMPHOCYTES RELATIVE PERCENT 29 % (BEAKER) (test code = 430) MONOCYTES RELATIVE PERCENT 7 % (BEAKER) (test code = 431) EOSINOPHILS RELATIVE PERCENT 2 % (BEAKER) (test code = 432) BASOPHILS RELATIVE PERCENT 1 % (BEAKER) (test code = 437) NEUTROPHILS ABSOLUTE COUNT 4.23 K/ L 1.78-5.38 (BEAKER) (test code = 670) LYMPHOCYTES ABSOLUTE COUNT 2.04 K/ L 1.32-3.57 (BEAKER) (test code = 414) MONOCYTES ABSOLUTE COUNT (BEAKER) 0.52 K/ L 0.30-0.82 (test code = 415) EOSINOPHILS ABSOLUTE COUNT 0.14 K/ L 0.04-0.54 (BEAKER) (test code = 416) BASOPHILS ABSOLUTE COUNT (BEAKER) 0.05 K/ L 0.01-0.08 (test code = 417) IMMATURE GRANULOCYTES-RELATIVE 1 % 0-1 PERCENT (BEAKER) (test code = 2801) [id number] 12:45:00 Test Item Value Reference Range Interpretation Comments FERRITIN (BEAKER) (test code = 361) 289 ng/mL 5-275 H Front Office Attendant ID - NIDHI MHEPATIC FUNCTION [id number] 12:22:00 Test Item Value Reference Range Interpretation Comments TOTAL PROTEIN (BEAKER) (test code = 7.7 gm/dL 6.0-8.3 770) ALBUMIN (BEAKER) (test code = 1145) 4.7 g/dL 3.5-5.0 BILIRUBIN TOTAL (BEAKER) (test code 0.7 mg/dL 0.2-1.2 = 377) BILIRUBIN DIRECT (BEAKER) (test 0.3 mg/dL 0.1-0.5 code = 706) ALKALINE PHOSPHATASE (BEAKER) (test 63 U/L 40-150 code = 346) AST (SGOT) (BEAKER) (test code = 53 U/L 5-34 H 353) ALT (SGPT) (BEAKER) (test code = 71 U/L 6-55 H 347) Front Office Attendant ID - NIDHI MBASIC METABOLIC [id number] 12:22:00 Test Item Value Reference Range Interpretation Comments SODIUM (BEAKER) 138 meq/L 136-145 (test code = 381) POTASSIUM (BEAKER) 4.8 meq/L 3.5-5.1 (test code = 379) CHLORIDE (BEAKER) 105 meq/L 98-107 (test code = 382) CO2 (BEAKER) (test 25 meq/L 22-29 code = 355) BLOOD UREA NITROGEN 15 mg/dL 7-21 (BEAKER) (test code = 354) CREATININE (BEAKER) 1.03 mg/dL 0.57-1.25 (test code = 358) GLUCOSE RANDOM 113 mg/dL 70-105 H (BEAKER) (test code = 652) CALCIUM (BEAKER) 9.3 mg/dL 8.4-10.2 (test code = 697) EGFR (BEAKER) (test 76 mL/min/1.73 ESTIMA MAXIM GFR IS code = 1092) sq m NOT ACCURATE CREATININE CLEARANCE IN PREDICTING GLOMERULAR FILTRATION RATE . ESTIMATED GFR I S NOT APPLICABLE FOR DIALYSIS PATIEN TS. Front Office Attendant ID - NIDHI [facility] W/PLT COUNT & AUTO [id number] 12:20:00 Test Item Value Reference Range Interpretation Comments WHITE BLOOD CELL COUNT (BEAKER) 6.7 K/ L 3.5-10.5 (test code = 775) RED BLOOD CELL COUNT (BEAKER) 5.85 M/ L 4.63-6.08 (test code = 761) HEMOGLOBIN (BEAKER) (test code = 15.4 GM/DL 13.7-17.5 410) HEMATOCRIT (BEAKER) (test code = 47.6 % 40.1-51.0 411) MEAN CORPUSCULAR VOLUME (BEAKER) 81.4 fL 79.0-92.2 (test code = 753) MEAN CORPUSCULAR HEMOGLOBIN 26.3 pg 25.7-32.2 (BEAKER) (test code = 751) MEAN CORPUSCULAR HEMOGLOBIN CONC 32.4 GM/DL 32.3-36.5 (BEAKER) (test code = 752) RED CELL DISTRIBUTION WIDTH 13.8 % 11.6-14.4 (BEAKER) (test code = 412) PLATELET COUNT (BEAKER) (test 227 K/CU MM 150-450 code = 756) MEAN PLATELET VOLUME (BEAKER) 11.7 fL 9.4-12.4 (test code = 754) NUCLEATED RED BLOOD CELLS 0 /100 WBC 0-0 (BEAKER) (test code = 413) NEUTROPHILS RELATIVE PERCENT 61 % (BEAKER) (test code = 429) LYMPHOCYTES RELATIVE PERCENT 29 % (BEAKER) (test code = 430) MONOCYTES RELATIVE PERCENT 7 % (BEAKER) (test code = 431) EOSINOPHILS RELATIVE PERCENT 2 % (BEAKER) (test code = 432) BASOPHILS RELATIVE PERCENT 1 % (BEAKER) (test code = 437) NEUTROPHILS ABSOLUTE COUNT 4.03 K/ L 1.78-5.38 (BEAKER) (test code = 670) LYMPHOCYTES ABSOLUTE COUNT 1.95 K/ L 1.32-3.57 (BEAKER) (test code = 414) MONOCYTES ABSOLUTE COUNT (BEAKER) 0.48 K/ L 0.30-0.82 (test code = 415) EOSINOPHILS ABSOLUTE COUNT 0.13 K/ L 0.04-0.54 (BEAKER) (test code = 416) BASOPHILS ABSOLUTE COUNT (BEAKER) 0.04 K/ L 0.01-0.08 (test code = 417) IMMATURE GRANULOCYTES-RELATIVE 1 % 0-1 PERCENT (BEAKER) (test code = 2801) TISSUE [id number] 18:24:00Surgical Pathology Report Case: [id number] Authorizing Provider: Armen Corea MD Collected: 11/17/2018 1501 Ordering Location: [address] PROCEDURE Received: 11/17/2018 1630 Pathologist: Ivan Nieto MD Specimen: Biopsy, Liver LIVER, ULTRASOUND-GUIDED NEEDLE BIOPSIES- STEATOHEPATITIS (CARLY/ONEAL)- FIBROSIS STAGE 2-3 OF 4 Signing Pathologist Direct Phone Line: [phone] signed by Ivan Nieto MD on 11/22/2018 at 6:24PMThe non-alcoholic steatohepatitis (ROGERS) activity scoring is performed according to guidelines fromnon-alcoholic steatohepatitis, clinical research network (Mariam, et al. Hepatology 2005. 41:1313-21), at the request of the clinician, for research related purposes.The ROGERS score is: Steatosis: Grade2 + lobular inflammation, grade 3 + hepatocyte ballooning score 2 = 7/8. The fibrosis score is 2-3 of 4.81722, 86638 X4The specimen is received in a single part labeled with the patient's name, date ofbirth, accession number all of which match the information provided on the requisition slip. Received in formalin in a container labeled "liver biopsy, ONEAL participation in a clinical research trial, liver right, 18 gm, TEMHO, three passes" are two cores of 0.1 cm in diameter red-brown tissue measuring 1.0 and 0.7 cm. The case is submitted entirely in cassette A1. EC/plSection shows multiple variably sized cores of liver parenchyma with greater than 10 portal tracts and is adequate for evaluation.There is moderate steatosis, predominantly macrovesicular type, involving about 60% of liver parenchyma. Foci of microvesicular steatosis is seen. Multifocal ballooning degeneration with early Dora Denk hyaline is noted. Moderate to focally severe lobular inflammation is present. Focal megamitochondria are present. No acidophil bodies are seen. Focal lobular neutrophils are also seen. No cholestasis is seen. Majority of portal tracts are largely unremarkable with preserved and unremarkable bileducts. A couple of portal tracts show chronic lymphoplasmacytic inflammation admixed with few eosinophils and bile duct damage with lymphocytic cholangitis. Iron stain shows 1+ staining of the hepatocytes. No hyaline globules are seen on PAS with diastase stain. The trichrome and reticulin stains showportal/periportal and prominent perisinusoidal fibrosis. There is one focus of bridging fibrosis. No nodularity or cirrhosis is seen.The interpretation of this case included the use of immunohistochemistry or special stains.Control Slides Examined: In-house known positive controls were evaluated along with the test tissue. These control slides run alongside of the patients sample show appropriate staining. Internal positive and negative controls when available are evaluated Immunohistochemistry technical testing was performed at [facility], Pathology Laboratory where it was developed and its performance characteristics were determined. It has not been cleared or approved bythe U.S. Food and Drug Administration. The FDA has determined that such clearance or approval is notnecessary. The test is used for clinical purposes. It should not be regarded as investigational or for research. This laboratory is certified under the Clinical Laboratory Improvement Amendments of 1988 (CLIA-88) as qualified to perform high complexity clinical laboratory testing.MR, ABDOMEN, WITHOUT [id number] 14:12:00Referring: Dr. Maribel CarranzaED MRI OF ABDOMEN WITH FAT FRACTIONFINAL REPORT TECHNIQUE: Limited MRI of the abdomen WITHOUT intravenous contrast for research protocol. INDICATION: 48-year-old man with participation in a clinical research trial. COMPARISON: IMPRESSION: This is a nondiagnostic study performed for research purposes only. Hepaticsteatosis. The spleen, kidneys, and pancreas are grossly unremarkable. There is no bile duct dilation. The gallbladder is unremarkable. No bowel obstruction. No hydronephrosis. The visualized pelvis isunremarkable. Signed: Dami Hodge MDReport Verified Date/Time: 11/22/2018 14:12:12 Reading Location: [facility] B1 C013Y CT Body Reading Room U/S, BIOPSY, [id number] 16:56:00Referring: Dr. Maribel Burks for Exam:->Participation in a clinical research trialReason for Exam:->NASHFINAL REPORT US Guided biopsy of the liver . History: History of liver failure. Under medical therapy. Repeat biopsy requested. Production Specialist: Oscar John MD. Polo Coach: None. Modality: Ultrasound Sedation: Versed one mg and fentanyl 50 mcg was given intravenously for conscious sedation. Vital signs were monitored throughout theprocedure by a dedicated RN under direct supervision of Dr. John, and remained stable. Physicianintra-service sedation time was 10 minutes. Estimated blood loss: < 5 cc. Technique: Informed written consent was obtained. Discussion of risks, benefits, and alternativeswere made with the patient. The patient expressed understanding and agreed to proceed. A universal timeout was performed prior to starting the procedure. Standard sterile precautions were utilized. A preliminary ultrasonography was performed to assess the target and determine a safe access site. It showed and easily accessible segment six of the liver. Pertinent ultrasound images were secured to the PACS for documentation. A right mid axillary low intercostal access site was selected and sterilely prepped and draped. Local anesthesia with 1% lidocaine was administered. A dermatotomy was performed. Using aseptic precautions, under real-time ultrasonographic guidance, the target lesion was accessed with a 17-gauge guide. Using an 18-gauge, multiple cores of the targeted tissue were performed. The specimen was submitted in formalin for further processing. At the end of the procedure, an aseptic dressing applied. The patient tolerated the procedure well. After recovery, the patient was discharged from the department in stable condition. Complications: None immediate. Specimen: Three 18-gauge cores submitted in formalin. Impression: Successful ultrasound-guided core biopsy of segment six of the liver with specimens submitted in formalin to the laboratory. Thank you for the opportunity to assist in the care of your patient. Signed: Oscar John MDReport Verified Date/Time: 11/17/2018 16:56:17 Reading Location: [place] [address] Angio Body Reading Room [id number] 10:17:00 Test Item Value Reference Range Interpretation Comments PARTIAL THROMBOPLASTIN TIME 34.4 seconds 22.5-36.0 (BEAKER) (test code = 760) PROTHROMBIN [id number] 10:16:00 Test Item Value Reference Range Interpretation Comments PROTIME (BEAKER) (test code = 12.7 seconds 11.9-14.2 759) INR (BEAKER) (test code = 370) 1.0 <=5.9 Effective 08/03/2018: PT Reference Range ChangeNew: 11.9-14.2 Previous: 11.7- 14.7RECOMMENDED COUMADIN/WARFARIN INR THERAPY RANGESSTANDARD DOSE: 2.0-3.0 Includes: PROPHYLAXIS for venous thrombosis, systemic embolization; TREATMENT for venous thrombosis and/or pulmonary embolus.HIGH RISK: Target INR is2.5-3.5 for patients wiht mechanical heart valves.CBC W/PLT COUNT & AUTO [id number] 10:07:00 Test Item Value Reference Range Interpretation Comments WHITE BLOOD CELL COUNT (BEAKER) 6.7 K/ L 3.5-10.5 (test code = 775) RED BLOOD CELL COUNT (BEAKER) 5.95 M/ L 4.63-6.08 (test code = 761) HEMOGLOBIN (BEAKER) (test code = 15.5 GM/DL 13.7-17.5 410) HEMATOCRIT (BEAKER) (test code = 49.1 % 40.1-51.0 411) MEAN CORPUSCULAR VOLUME (BEAKER) 82.5 fL 79.0-92.2 (test code = 753) MEAN CORPUSCULAR HEMOGLOBIN 26.1 pg 25.7-32.2 (BEAKER) (test code = 751) MEAN CORPUSCULAR HEMOGLOBIN CONC 31.6 GM/DL 32.3-36.5 L (BEAKER) (test code = 752) RED CELL DISTRIBUTION WIDTH 14.1 % 11.6-14.4 (BEAKER) (test code = 412) PLATELET COUNT (BEAKER) (test 230 K/CU MM 150-450 code = 756) MEAN PLATELET VOLUME (BEAKER) 11.4 fL 9.4-12.4 (test code = 754) NUCLEATED RED BLOOD CELLS 0 /100 WBC 0-0 (BEAKER) (test code = 413) NEUTROPHILS RELATIVE PERCENT 58 % (BEAKER) (test code = 429) LYMPHOCYTES RELATIVE PERCENT 31 % (BEAKER) (test code = 430) MONOCYTES RELATIVE PERCENT 8 % (BEAKER) (test code = 431) EOSINOPHILS RELATIVE PERCENT 2 % (BEAKER) (test code = 432) BASOPHILS RELATIVE PERCENT 1 % (BEAKER) (test code = 437) NEUTROPHILS ABSOLUTE COUNT 3.85 K/ L 1.78-5.38 (BEAKER) (test code = 670) LYMPHOCYTES ABSOLUTE COUNT 2.08 K/ L 1.32-3.57 (BEAKER) (test code = 414) MONOCYTES ABSOLUTE COUNT (BEAKER) 0.52 K/ L 0.30-0.82 (test code = 415) EOSINOPHILS ABSOLUTE COUNT 0.12 K/ L 0.04-0.54 (BEAKER) (test code = 416) BASOPHILS ABSOLUTE COUNT (BEAKER) 0.05 K/ L 0.01-0.08 (test code = 417) IMMATURE GRANULOCYTES-RELATIVE 1 % 0-1 PERCENT (BEAKER) (test code = 2801) MR, ABDOMEN, WITHOUT [id number] 15:56:00Referring: Dr. Maribel CarranzaED MRI OF ABD WITH FAT FRACTIONFINAL REPORT MRI OF THE abdomen dated 06/10/2018 REASON FOR STUDY: Research protocol. TECHNIQUE: Multisequence, multi planar MRI of the abdomen was performed without contrast per research protocol. DISCUSSION: This is a nondiagnostic study performed for research purposes only. Theliver, spleen, kidneys, and pancreas have an unremarkable noncontrast appearance. There is no bile duct dilation. The gallbladder is distended. No bowel obstruction is seen. There is no hydronephrosis.IMPRESSION: Research protocol MRI as above. Signed: Alex Butterfieldeport Verified Date/Time: 06/10/2018 15:56:07 Reading Location: [address] Body Reading Room [id number] 12:17:00 Test Item Value Reference Range Interpretation Comments FERRITIN (BEAKER) (test code = 361) 334 ng/mL 5-275 H IRON, TIBC, % SAT. (WITHOUT FERRITIN)2018-05-17 11:56:00 Test Item Value Reference Range Interpretation Comments IRON (BEAKER) (test code = 547) 100.0 ug/dL 40.0-160.0 TOTAL IRON BINDING CAPACITY 409 ug/dL 250-450 (BEAKER) (test code = 769) IRON % SATURATION (2) (BEAKER) 24 % 20-55 (test code = 2590) MR, ABDOMEN, WITHOUT [id number] 12:17:00Referring: Dr. Maribel Dejesus MRI WITHOUT CONTRAST WITH FAT FRACTIONFINAL REPORT TECHNIQUE: MRI of the abdomen without intravenous contrast for research purposes. INDICATION: Participant in a clinical research trial. COMPARISON: MRI of the abdomen from 04/24/2016. FINDINGS/IMPRESSION:These images were obtained for research purposes. Diffuse fattyinfiltration of the liver. Signed: Yan Harris Verified Date/Time: 03/15/2018 12:17:25 Reading Location: [address] Body Reading Room MR, ABDOMEN, WITHOUT [id number] 14:30:00 Referring: Dr. Maribel Dejesus MRI ABD WITH FAT FRACTIONFINAL REPORT TECHNIQUE: MRI of the abdomen without intravenous contrast for re search purposes. INDICATION: Participant in a clinical research trial. COMPARISON: MRI of the abdomen from 04/24/2016. FINDINGS/IMPRESSION: These images were obtained for research purposes. Diffuse fatty infiltration of the liver. Signed: Blaise Robbins Verified Date/Time: 12/16/2017 14:30:40 [place] ding Location: [address] Body Reading Room TISSUE [id number] 12:17:00Surgical Pathology Report Case: [id number] Authorizing Provider: Armen Corea MD Collected: 10/21/20172138 Ordering Location: [facility] 6 OP Received: 10/21/20172141 Pathologist: Ivan Nieto MD Specimen: Biopsy, Liver, Bx LIVER, ULTRASOUND-GUIDED NEEDLE BIOPSIES- STEATOHEPATITIS- FIBROSIS STAGE 2 OF 4- SEE COMMENT Signing Pathologist Direct Phone Line: [phone] signed by Ivan Nieto MD on 10/25/2017 at 12:17 PMThe non-alcoholic steatohepatitis (ROGERS) activity scoring is performed according to guidelines fromnon-alcoholic steatohepatitis, clinical research network (Mariam, et al. Hepatology 2005. 41:1313-21), at the request of the clinician, for research related purposes.The ROGERS score is: Steatosis: Grade2 + lobular inflammation, grade 2 + hepatocyte ballooning score 2 = 6/8. The fibrosis score is 2 of 4.43199, 86926 O3Tfcny liver diseaseUltrasound-guided nontargeted needle biopsyReceived in formalin [...] droplet and medium droplet steatosis, involving about 60%of liver parenchyma. Multifocal ballooning degeneration with early Dora Denk hyaline is noted. Occ asional acidophilic bodies are seen. Moderate lobular inflammation is present. The portal tracts show mild chronic nonspecific portal inflammation. The bile ducts are preserved and unremarkable. Ductular reaction is present. Iron stain shows 1+ to 2+ staining of the hepatocytes. No hyaline globules are seen on PAS with diastase stain. The trichrome stain portal/periportal and perivenular perisinusoidal fibrosis.Special stains: trichrome, reticulin, iron and PAS with diastaseU/S, BIOPSY, [id number] 12:07:00Referring: Dr. Maribel Burks for Exam:->Participation in a [...] MEDICATIONS: 1 mg Versed, 50 mcg fentanyl FINDINGS:After obtaining informed written consent, the patient was [...] Uncomplicated ultrasound-guided nonfocal biopsy of the liver. Signed:Dami Hodge Verified Date/Time: 10/21/2017 12:07:36 Reading Location: [address] Ultrasound Reading Room [id number] 09:01:00 Test Item Value Reference Range Interpretation Comments PROTIME (BEAKER) (test code = 14.7 seconds 11.7-14.7 759) INR (BEAKER) (test code = 370) 1.2 <=5.9 PARTIAL THROMBOPLASTIN TIME 31.2 seconds 22.5-36.0 (BEAKER) (test code = 760) RECOMMENDED COUMADIN/WARFARIN INR THERAPY RANGESSTANDARD DOSE: 2.0 - 3.0 Includes: PROPHYLAXIS forvenous thrombosis, systemic embolization; TREATMENT for venous thrombosis and/or pulmonary embolus.HIGH RISK: Target INR is 2.5-3.5 for patients with mechanical heart valves.BASIC METABOLIC [id number] 09:01:00 Test Item Value Reference Range Interpretation Comments SODIUM (BEAKER) 138 meq/L 136-145 (test code = 381) POTASSIUM (BEAKER) 4.2 meq/L 3.5-5.1 (test code = 379) CHLORIDE (BEAKER) 104 meq/L 98-107 (test code = 382) CO2 (BEAKER) (test 23 meq/L 22-29 code = 355) BLOOD UREA NITROGEN 16 mg/dL 7-21 (BEAKER) (test code = 354) CREATININE (BEAKER) 1.19 mg/dL 0.57-1.25 (test code = 358) GLUCOSE RANDOM 103 mg/dL 70-105 (BEAKER) (test code = 652) CALCIUM (BEAKER) 9.6 mg/dL 8.4-10.2 (test code = 697) EGFR (BEAKER) (test 65 mL/min/1.73 ESTIMA MAXIM GFR IS code = 1092) sq m NOT ACCURATE CREATININE CLEARANCE IN PREDICTING GLOMERULAR FILTRATION RATE . ESTIMATED GFR I S NOT APPLICABLE FOR DIALYSIS PATIEN TS. CBC W/PLT COUNT & AUTO [id number] 08:46:00 Test Item Value Reference Range Interpretation Comments WHITE BLOOD CELL COUNT (BEAKER) 7.8 K/ L 3.5-10.5 (test code = 775) RED BLOOD CELL COUNT (BEAKER) 5.59 M/ L 4.63-6.08 (test code = 761) HEMOGLOBIN (BEAKER) (test code = 14.7 GM/DL 13.7-17.5 410) HEMATOCRIT (BEAKER) (test code = 46.3 % 40.1-51.0 411) MEAN CORPUSCULAR VOLUME (BEAKER) 82.8 fL 79.0-92.2 (test code = 753) MEAN CORPUSCULAR HEMOGLOBIN 26.3 pg 25.7-32.2 (BEAKER) (test code = 751) MEAN CORPUSCULAR HEMOGLOBIN CONC 31.7 GM/DL 32.3-36.5 L (BEAKER) (test code = 752) RED CELL DISTRIBUTION WIDTH 13.9 % 11.6-14.4 (BEAKER) (test code = 412) PLATELET COUNT (BEAKER) (test 213 K/CU MM 150-450 code = 756) MEAN PLATELET VOLUME (BEAKER) 11.0 fL 9.4-12.4 (test code = 754) NUCLEATED RED BLOOD CELLS 0 /100 WBC 0-0 (BEAKER) (test code = 413) NEUTROPHILS RELATIVE PERCENT 59 % (BEAKER) (test code = 429) LYMPHOCYTES RELATIVE PERCENT 29 % (BEAKER) (test code = 430) MONOCYTES RELATIVE PERCENT 9 % (BEAKER) (test code = 431) EOSINOPHILS RELATIVE PERCENT 2 % (BEAKER) (test code = 432) BASOPHILS RELATIVE PERCENT 0 % (BEAKER) (test code = 437) NEUTROPHILS ABSOLUTE COUNT 4.63 K/ L 1.78-5.38 (BEAKER) (test code = 670) LYMPHOCYTES ABSOLUTE COUNT 2.28 K/ L 1.32-3.57 (BEAKER) (test code = 414) MONOCYTES ABSOLUTE COUNT (BEAKER) 0.71 K/ L 0.30-0.82 (test code = 415) EOSINOPHILS ABSOLUTE COUNT 0.14 K/ L 0.04-0.54 (BEAKER) (test code = 416) BASOPHILS ABSOLUTE COUNT (BEAKER) 0.03 K/ L 0.01-0.08 (test code = 417) IMMATURE GRANULOCYTES-RELATIVE 1 % 0-1 PERCENT (BEAKER) (test code = 2801) ALPHA FETOPROTEIN (AFP), TUMOR [id number] 13:49:00 Test Item Value Reference Range Interpretation Comments ALPHA-FETOPROTEIN (BEAKER) (test code < ng/mL <10.0 = 1094) [id number] 12:32:00 Test Item Value Reference Range Interpretation Comments FERRITIN (BEAKER) (test code = 361) 573 ng/mL 5-275 H [id number] 12:18:00 Test Item Value Reference Range Interpretation Comments MAGNESIUM (BEAKER) (test code = 2.2 mg/dL 1.6-2.6 627) BASIC METABOLIC [id number] 12:18:00 Test Item Value Reference Range Interpretation Comments SODIUM (BEAKER) 137 meq/L 136-145 (test code = 381) POTASSIUM (BEAKER) 4.4 meq/L 3.5-5.1 (test code = 379) CHLORIDE (BEAKER) 105 meq/L 98-107 (test code = 382) CO2 (BEAKER) (test 26 meq/L 22-29 code = 355) BLOOD UREA NITROGEN 13 mg/dL 7-21 (BEAKER) (test code = 354) CREATININE (BEAKER) 0.96 mg/dL 0.57-1.25 (test code = 358) GLUCOSE RANDOM 114 mg/dL 70-105 H (BEAKER) (test code = 652) CALCIUM (BEAKER) 9.3 mg/dL 8.4-10.2 (test code = 697) EGFR (BEAKER) (test 83 mL/min/1.73 ESTIMA MAXIM GFR IS code = 1092) sq m NOT ACCURATE CREATININE CLEARANCE IN PREDICTING GLOMERULAR FILTRATION RATE . ESTIMATED GFR I S NOT APPLICABLE FOR DIALYSIS PATIEN TS. HEPATIC FUNCTION [id number] 12:18:00 Test Item Value Reference Range Interpretation Comments TOTAL PROTEIN (BEAKER) (test code = 7.8 gm/dL 6.0-8.3 770) ALBUMIN (BEAKER) (test code = 1145) 4.5 g/dL 3.5-5.0 BILIRUBIN TOTAL (BEAKER) (test code 0.8 mg/dL 0.2-1.2 = 377) BILIRUBIN DIRECT (BEAKER) (test 0.4 mg/dL 0.1-0.5 code = 706) ALKALINE PHOSPHATASE (BEAKER) (test 58 U/L 40-150 code = 346) AST (SGOT) (BEAKER) (test code = 73 U/L 5-34 H 353) ALT (SGPT) (BEAKER) (test code = 103 U/L 6-55 H 347) IRON, TIBC, % SAT. (WITHOUT FERRITIN)2017-05-05 12:03:00 Test Item Value Reference Range Interpretation Comments IRON (BEAKER) (test code = 547) 88 ug/dL 40-160 TOTAL IRON BINDING CAPACITY 354 ug/dL 250-450 (BEAKER) (test code = 769) IRON % SATURATION (2) (BEAKER) 25 % 20-55 (test code = 2590) PROTHROMBIN [id number] 11:42:00 Test Item Value Reference Range Interpretation Comments PROTIME (BEAKER) (test code = 14.1 seconds 11.7-14.7 759) INR (BEAKER) (test code = 370) 1.1 <=5.9 RECOMMENDED COUMADIN/WARFARIN INR THERAPY RANGESSTANDARD DOSE: 2.0 - 3.0 Includes: PROPHYLAXIS forvenous thrombosis, systemic embolization; TREATMENT for venous thrombosis and/or pulmonary embolus.HIGH RISK: Target INR is 2.5-3.5 for patients with mechanical heart valves.CBC W/PLT COUNT & AUTO DIFFERENTIAL 2017-05-05 11:35:00 Test Item Value Reference Range Interpretation Comments WHITE BLOOD CELL COUNT (BEAKER) 6.4 K/ L 3.5-10.5 (test code = 775) RED BLOOD CELL COUNT (BEAKER) 5.86 M/ L 4.63-6.08 (test code = 761) HEMOGLOBIN (BEAKER) (test code = 15.3 GM/DL 13.7-17.5 410) HEMATOCRIT (BEAKER) (test code = 48.0 % 40.1-51.0 411) MEAN CORPUSCULAR VOLUME (BEAKER) 81.9 fL 79.0-92.2 (test code = 753) MEAN CORPUSCULAR HEMOGLOBIN 26.1 pg 25.7-32.2 (BEAKER) (test code = 751) MEAN CORPUSCULAR HEMOGLOBIN CONC 31.9 GM/DL 32.3-36.5 L (BEAKER) (test code = 752) RED CELL DISTRIBUTION WIDTH 14.0 % 11.6-14.4 (BEAKER) (test code = 412) PLATELET COUNT (BEAKER) (test 213 K/CU MM 150-450 code = 756) MEAN PLATELET VOLUME (BEAKER) 11.4 fL 9.4-12.4 (test code = 754) NUCLEATED RED BLOOD CELLS 0 /100 WBC 0-0 (BEAKER) (test code = 413) NEUTROPHILS RELATIVE PERCENT 63 % (BEAKER) (test code = 429) LYMPHOCYTES RELATIVE PERCENT 27 % (BEAKER) (test code = 430) MONOCYTES RELATIVE PERCENT 8 % (BEAKER) (test code = 431) EOSINOPHILS RELATIVE PERCENT 1 % (BEAKER) (test code = 432) BASOPHILS RELATIVE PERCENT 1 % (BEAKER) (test code = 437) NEUTROPHILS ABSOLUTE COUNT 4.05 K/ L 1.78-5.38 (BEAKER) (test code = 670) LYMPHOCYTES ABSOLUTE COUNT 1.74 K/ L 1.32-3.57 (BEAKER) (test code = 414) MONOCYTES ABSOLUTE COUNT (BEAKER) 0.49 K/ L 0.30-0.82 (test code = 415) EOSINOPHILS ABSOLUTE COUNT 0.09 K/ L 0.04-0.54 (BEAKER) (test code = 416) BASOPHILS ABSOLUTE COUNT (BEAKER) 0.04 K/ L 0.01-0.08 (test code = 417) IMMATURE GRANULOCYTES-RELATIVE 0 % 0-1 PERCENT (BEAKER) (test code = 2801) [id number] 15:35:00 Test Item Value Reference Range Interpretation Comments FERRITIN (BEAKER) (test code = 361) 870 ng/mL 5-275 H Effective 01/23/2014: Reference Range ChangeNew: Male 5-275 Previous: Male 22-322 Female 5-275 Female 10-291IRON, TIBC, % SAT. (WITHOUT FERRITIN)2016-10-28 13:12:00 Test Item Value Reference Range Interpretation Comments IRON (BEAKER) (test code = 547) 133 ug/dL 40-160 TOTAL IRON BINDING CAPACITY 324 ug/dL 250-450 (BEAKER) (test code = 769) IRON % SATURATION (2) (BEAKER) 41 % 20-55 (test code = 2590) HEPATIC FUNCTION [id number] 13:03:00 Test Item Value Reference Range Interpretation Comments TOTAL PROTEIN (BEAKER) (test code = 7.9 gm/dL 6.0-8.3 770) ALBUMIN (BEAKER) (test code = 1145) 4.6 g/dL 3.5-5.0 BILIRUBIN TOTAL (BEAKER) (test code 1.0 mg/dL 0.2-1.2 = 377) BILIRUBIN DIRECT (BEAKER) (test 0.4 mg/dL 0.1-0.5 code = 706) ALKALINE PHOSPHATASE (BEAKER) (test 55 U/L 40-150 code = 346) AST (SGOT) (BEAKER) (test code = 108 U/L 5-34 H 353) ALT (SGPT) (BEAKER) (test code = 129 U/L 6-55 H 347) BASIC METABOLIC [id number] 13:03:00 Test Item Value Reference Range Interpretation Comments SODIUM (BEAKER) 137 meq/L 136-145 (test code = 381) POTASSIUM (BEAKER) 4.3 meq/L 3.5-5.1 (test code = 379) CHLORIDE (BEAKER) 104 meq/L 98-107 (test code = 382) CO2 (BEAKER) (test 25 meq/L 22-29 code = 355) BLOOD UREA NITROGEN 12 mg/dL 7-21 (BEAKER) (test code = 354) CREATININE (BEAKER) 1.09 mg/dL 0.57-1.25 (test code = 358) GLUCOSE RANDOM 107 mg/dL 70-105 H (BEAKER) (test code = 652) CALCIUM (BEAKER) 9.4 mg/dL 8.4-10.2 (test code = 697) EGFR (BEAKER) (test 72 mL/min/1.73 ESTIMA MAXIM GFR IS code = 1092) sq m NOT ACCURATE CREATININE CLEARANCE IN PREDICTING GLOMERULAR FILTRATION RATE . ESTIMATED GFR I S NOT APPLICABLE FOR DIALYSIS PATIEN TS. CBC W/PLT COUNT & AUTO [id number] 12:29:00 Test Item Value Reference Range Interpretation Comments WHITE BLOOD CELL COUNT (BEAKER) 7.0 K/ L 3.5-10.5 (test code = 775) RED BLOOD CELL COUNT (BEAKER) 5.75 M/ L 4.63-6.08 (test code = 761) HEMOGLOBIN (BEAKER) (test code = 15.2 GM/DL 13.7-17.5 410) HEMATOCRIT (BEAKER) (test code = 46.7 % 40.1-51.0 411) MEAN CORPUSCULAR VOLUME (BEAKER) 81.2 fL 79.0-92.2 (test code = 753) MEAN CORPUSCULAR HEMOGLOBIN 26.4 pg 25.7-32.2 (BEAKER) (test code = 751) MEAN CORPUSCULAR HEMOGLOBIN CONC 32.5 GM/DL 32.3-36.5 (BEAKER) (test code = 752) RED CELL DISTRIBUTION WIDTH 14.0 % 11.6-14.4 (BEAKER) (test code = 412) PLATELET COUNT (BEAKER) (test 218 K/CU MM 150-450 code = 756) MEAN PLATELET VOLUME (BEAKER) 12.4 fL 9.4-12.4 (test code = 754) NUCLEATED RED BLOOD CELLS 0 /100 WBC 0-0 (BEAKER) (test code = 413) NEUTROPHILS RELATIVE PERCENT 60 % (BEAKER) (test code = 429) LYMPHOCYTES RELATIVE PERCENT 30 % (BEAKER) (test code = 430) MONOCYTES RELATIVE PERCENT 8 % (BEAKER) (test code = 431) EOSINOPHILS RELATIVE PERCENT 2 % (BEAKER) (test code = 432) BASOPHILS RELATIVE PERCENT 1 % (BEAKER) (test code = 437) NEUTROPHILS ABSOLUTE COUNT 4.18 K/ L 1.78-5.38 (BEAKER) (test code = 670) LYMPHOCYTES ABSOLUTE COUNT 2.06 K/ L 1.32-3.57 (BEAKER) (test code = 414) MONOCYTES ABSOLUTE COUNT (BEAKER) 0.54 K/ L 0.30-0.82 (test code = 415) EOSINOPHILS ABSOLUTE COUNT 0.14 K/ L 0.04-0.54 (BEAKER) (test code = 416) BASOPHILS ABSOLUTE COUNT (BEAKER) 0.04 K/ L 0.01-0.08 (test code = 417) IMMATURE GRANULOCYTES-RELATIVE 0 % 0-1 PERCENT (BEAKER) (test code = 2801) TISSUE [id number] 12:01:00Surgical Pathology Report Case: [id number] --- Authorizing Provider: Era Matias, Ordering Provider: Era Matias NP OPTICAL INSTRUMENT REPAIRER Ordering Location: [facility] Radiology Angio Collected: 05/19/2016 1411 Pathologist: Ivan Nieto MD Received: 05/19/20161411 Specimen: Liver LIVER, ULTRASOUND-GUIDED NEEDLE BIOPSIES- STEATOHEPATITIS- FIBROSIS STAGE 2-3 OF 4 Signing Pathologist Direct Phone Line: [phone] non-alcoholic steatohepatitis (ROGERS) activity scoring is performed according to guidelines from non-alcoholic steatohepatitis, clinical research network (Mariam, et al. Hepatology 2005. 41:1313-21), at the request of the clinicianThe ROGERS score is: Steatosis: Grade 3 + lobular inflammation, grade 3 + hepatocyte ballooning score 2 = 8/8. The fibrosis score is 2-3 of 298454, 39528 X4NASH, research trialRight lobe liver biopsyReceived in [...] presence of early Dora hyaline. Multiple foci of lobular inflammation is present, focally more than 4 per 20x field. No definitive acidophil bodiesare seen. The portal tracts show mild chronic nonspecific inflammation. No significant interface hepatitis is noted. The bile ducts are preserved and unremarkable. Occasional lymphoid aggregate is noted. Rare portal lipogranuloma is present. Iron stain shows 1+ iron deposition in the hepatocytes. No hyaline globules are seen on PAS with diastase stain. The trichrome stain shows perisinusoidal as wellas portal/periportal fibrosis with focal bridging fibrosis. Reticulin stain shows 1-2 cell thick hepatocytic trabeculae and the reticulin framework is focally disrupted in foci of steatosis.PT/[id number] 08:56:00 Test Item Value Reference Range Interpretation Comments PROTIME (BEAKER) (test code = 13.3 seconds 11.7-14.7 759) INR (BEAKER) (test code = 370) 1.0 <=5.9 PARTIAL THROMBOPLASTIN TIME 31.0 seconds 22.5-36.0 (BEAKER) (test code = 760) RECOMMENDED COUMADIN/WARFARIN INR THERAPY RANGESSTANDARD DOSE: 2.0 - 3.0 Includes: PROPHYLAXIS forvenous thrombosis, systemic embolization; TREATMENT for venous thrombosis and/or pulmonary embolus.HIGH RISK: Target INR is 2.5-3.5 for patients with mechanical heart valves.PLATELET [id number] 08:44:00 Test Item Value Reference Range Interpretation Comments PLATELET COUNT (BEAKER) (test 206 K/CU MM 150-430 code = 756) ALPHA FETOPROTEIN (AFP), TUMOR [id number] 15:45:00 Test Item Value Reference Range Interpretation Comments ALPHA-FETOPROTEIN (BEAKER) (test code < ng/mL <10.0 = 1094) Effective 01/23/2014: Reference Range ChangeNew: <10.0 Previous: 0.0-8.0 [id number] 15:43:00 Test Item Value Reference Range Interpretation Comments FERRITIN (BEAKER) (test code = 361) 679 ng/mL 5-275 H Effective 01/23/2014: Reference Range ChangeNew: Male 5-275 Previous: Male 22-322 Female 5-275 Female 10-291LIPID [id number] 15:26:00 Test Item Value Reference Range Interpretation Comments TRIGLYCERIDES (BEAKER) (test code = 138 mg/dL 540) CHOLESTEROL (BEAKER) (test code = 153 mg/dL 631) HDL CHOLESTEROL (BEAKER) (test code 29 mg/dL = 976) LDL CHOLESTEROL CALCULATED (BEAKER) 96 mg/dL (test code = 633) Triglyceride Reference Range: Low Risk <150 Borderline 150-199 High Risk 200-499 Very High Risk >=500Cholesterol Reference Range: Low Risk <200 Borderline 200-239 High Risk >240HDL Cholesterol Reference Range: Low Risk >=60 High Risk <40LDL Cholesterol Reference Range: Optimal <100 Near Optimal 100-129 Borderline 130-159 High 160-189 Very High >=190BASIC METABOLIC [id number] 15:26:00 Test Item Value Reference Range Interpretation Comments SODIUM (BEAKER) 137 meq/L 136-145 (test code = 381) POTASSIUM (BEAKER) 4.3 meq/L 3.5-5.1 (test code = 379) CHLORIDE (BEAKER) 104 meq/L 98-107 (test code = 382) CO2 (BEAKER) (test 23 meq/L 22-29 code = 355) BLOOD UREA NITROGEN 12 mg/dL 7-21 (BEAKER) (test code = 354) CREATININE (BEAKER) 0.99 mg/dL 0.57-1.25 (test code = 358) GLUCOSE RANDOM 100 mg/dL 70-105 (BEAKER) (test code = 652) CALCIUM (BEAKER) 9.6 mg/dL 8.4-10.2 (test code = 697) EGFR (BEAKER) (test 81 mL/min/1.73 ESTIMA MAXIM GFR IS code = 1092) sq m NOT ACCURATE CREATININE CLEARANCE IN PREDICTING GLOMERULAR FILTRATION RATE . ESTIMATED GFR I S NOT APPLICABLE FOR DIALYSIS PATIEN TS. HEPATIC FUNCTION [id number] 15:26:00 Test Item Value Reference Range Interpretation Comments TOTAL PROTEIN (BEAKER) (test code = 7.9 gm/dL 6.0-8.3 770) ALBUMIN (BEAKER) (test code = 1145) 4.7 g/dL 3.5-5.0 BILIRUBIN TOTAL (BEAKER) (test code 0.7 mg/dL 0.2-1.2 = 377) BILIRUBIN DIRECT (BEAKER) (test 0.3 mg/dL 0.1-0.5 code = 706) ALKALINE PHOSPHATASE (BEAKER) (test 67 U/L 40-150 code = 346) AST (SGOT) (BEAKER) (test code = 79 U/L 5-34 H 353) ALT (SGPT) (BEAKER) (test code = 116 U/L 6-55 H 347) GAMMA GLUTAMYL TRANSFERASE (GGT)2016-04-21 15:26:00 Test Item Value Reference Range Interpretation Comments GAMMA GLUTAMYL TRANSFERASE (BEAKER) 156 U/L 9-64 H (test code = 364) IRON, TIBC, % SAT. (WITHOUT FERRITIN)2016-04-21 15:23:00 Test Item Value Reference Range Interpretation Comments IRON (BEAKER) (test code = 547) 85 ug/dL 40-160 TOTAL IRON BINDING CAPACITY 324 ug/dL 250-450 (BEAKER) (test code = 769) IRON % SATURATION (2) (BEAKER) 26 % 20-55 (test code = 2590) CBC W/PLT COUNT & AUTO [id number] 15:19:00 Test Item Value Reference Range Interpretation Comments WHITE BLOOD CELL COUNT (BEAKER) 7.8 K/ L 4.0-10.0 (test code = 775) RED BLOOD CELL COUNT (BEAKER) 5.51 M/ L 4.20-5.80 (test code = 761) HEMOGLOBIN (BEAKER) (test code = 15.2 GM/DL 13.0-16.8 410) HEMATOCRIT (BEAKER) (test code = 46.0 % 40.0-50.0 411) MEAN CORPUSCULAR VOLUME (BEAKER) 83.6 fL 82.0-98.0 (test code = 753) MEAN CORPUSCULAR HEMOGLOBIN 27.6 pg 27.0-33.0 (BEAKER) (test code = 751) MEAN CORPUSCULAR HEMOGLOBIN CONC 33.0 GM/DL 32.0-36.0 (BEAKER) (test code = 752) RED CELL DISTRIBUTION WIDTH 12.6 % 10.3-14.2 (BEAKER) (test code = 412) PLATELET COUNT (BEAKER) (test 265 K/CU MM 150-430 code = 756) MEAN PLATELET VOLUME (BEAKER) 8.2 fL 6.5-10.5 (test code = 754) NUCLEATED RED BLOOD CELLS 0 /100 WBC 0-0 (BEAKER) (test code = 413) NEUTROPHILS RELATIVE PERCENT 53 % (BEAKER) (test code = 429) LYMPHOCYTES RELATIVE PERCENT 33 % (BEAKER) (test code = 430) MONOCYTES RELATIVE PERCENT 9 % (BEAKER) (test code = 431) EOSINOPHILS RELATIVE PERCENT 4 % (BEAKER) (test code = 432) BASOPHILS RELATIVE PERCENT 1 % (BEAKER) (test code = 437) NEUTROPHILS ABSOLUTE COUNT 4.14 K/ L 1.80-8.00 (BEAKER) (test code = 670) LYMPHOCYTES ABSOLUTE COUNT 2.60 K/ L 1.48-4.50 (BEAKER) (test code = 414) MONOCYTES ABSOLUTE COUNT (BEAKER) 0.67 K/ L 0.00-1.30 (test code = 415) EOSINOPHILS ABSOLUTE COUNT 0.33 K/ L 0.00-0.50 (BEAKER) (test code = 416) BASOPHILS ABSOLUTE COUNT (BEAKER) 0.08 K/ L 0.00-0.20 (test code = 417) 0.00PROTHROMBIN TIME/QNQ1020-06-12 15:14:00 Test Item Value Reference Range Interpretation Comments PROTIME (BEAKER) (test code = 13.0 seconds 11.7-14.7 759) INR (BEAKER) (test code = 370) 1.0 <=5.9 RECOMMENDED COUMADIN/WARFARIN INR THERAPY RANGESSTANDARD DOSE: 2.0 - 3.0 Includes: PROPHYLAXIS forvenous thrombosis, systemic embolization; TREATMENT for venous thrombosis and/or pulmonary embolus.HIGH RISK: Target INR is 2.5-3.5 for patients with mechanical heart valves.
[2020-06-15] MEDS ORDERED: ALBUTEROL 2.5 MG/3 ML NEB SOL ONE (12:15)
[2020-06-15] MEDS ORDERED: HYDROCODONE/CHLORPHEN 5 ML/OSYR ONE (12:15)
[2020-06-15] MEDS ORDERED: dexAMETHasone 10 MG/ML VIAL ONE (12:15)
[2020-06-15 13:34] LABS: SARS-COV-2 RT PCR POSITIVE (NEGATIVE)
--- NOTE | 2020-06-15 13:58 | RAD REPORT ---
EXAM DESCRIPTION: RAD - Chest Single View - 06/15/2020 1:52 pm CLINICAL HISTORY: COUGH, shortness of breath, fever COMPARISON: Portable June 2018 TECHNIQUE: AP portable chest image was obtained 06/15/2020 1:52 pm . FINDINGS: Lung volumes are low. Patchy interstitial and alveolar opacities are present worse in the left lung field. Heart and vasculature are normal. No measurable pleural effusion and no pneumothorax . No acute bony abnormality seen. No acute aortic findings suspected. IMPRESSION: Patchy bilateral pneumonia findings are present. Pattern is nonspecific. COVID-19 pneumonia is possible given the current clinical environment. Patien t testing status is not known.
--- NOTE | 2020-06-15 14:39 | ER ---
Nurse's Notes [facility] Name: Miguel Hayes Age: 50 yrs Sex: Male : 1970 Arrival Date: 06/15/2020 Time: 10:12 Bed 18 Private MD: Diagnosis: Pneumonia due to SARS-associated coronavirus Presentation: 06/15 10:16 Chief complaint: SOB, productive cough, body aches, headache, and fever x 6 days. TMAX hb 101. Coronavirus screen: Client presents with at least one sign or symptom that may indicate coronavirus-19. Standard/surgical mask placed on the client. Provider contacted for isolation considerations. Ebola Screen: No symptoms or risks identified at this time. Initial Sepsis Screen: Does the patient meet any 2 criteria? No. Patient's initial sepsis screen is negative. Does the patient have a suspected source of infection? No. Patient's initial sepsis screen is negative. Risk Assessment: Do you want to hurt yourself or someone else? Patient reports no desire to harm self or others. Onset of symptoms was June 09, 2020. 10:16 Method Of Arrival: Ambulatory hb 10:16 Acuity: KAITLYN 3 hb Historical: - Allergies: 10:19 No Known Allergies; hb - PMHx: 10:19 liver failure; hb - PSHx: 10:19 left foot; hb - Immunization history:: Client reports having NOT received the Covid vaccine. Flu vaccine is not up to date. - Social history:: Smoking status: Patient denies any tobacco usage or history of. Screenin:46 Abuse screen: Denies threats or abuse. Nutritional screening: No deficits noted. bw Tuberculosis screening: No symptoms or risk factors identified. Fall Risk None identified. Assessment: 13:30 Pain: Denies pain. Neuro: No deficits noted. Cardiovascular: No deficits noted. bw Respiratory: Reports shortness of breath. GI: No deficits noted. : No deficits noted. 14:37 Reassessment: Patient appears in no apparent distress at this time. Patient and/or bw family updated on plan of care and expected duration. Pain level reassessed. Patient is alert, oriented x 3, equal unlabored respirations, skin warm/dry/pink. 14:46 Reassessment: Patient appears in no apparent distress at this time. Patient and/or bw family updated on plan of care and expected duration. Pain level reassessed. Patient is alert, oriented x 3, equal unlabored respirations, skin warm/dry/pink. Vital Signs: 10:16 BP 178 / 92; Pulse 77; Resp 18; Temp 98.8(TE); Pulse Ox 96% on R/A; Weight 103.42 kg; hb Height 5 ft. 11 in. (180.34 cm); Pain 3/10; 13:30 BP 151 / 90; Pulse 89; Resp 18; Pulse Ox 96% on R/A; bw 10:16 Body Mass Index 31.80 (103.42 kg, 180.34 cm) hb ED Course: 10:12 Patient arrived in ED. ds1 10:18 Triage completed. hb 10:19 Arm band placed on. hb 11:09 Erin Gibbons RN is Primary Nurse. bw 11:11 Jordan Rubi NP is PHCP. pm1 11:11 Freddy Puri MD is Attending Physician. pm1 13:34 Notified Nurse Practitioner and/or Physician Risk Management Analyst of a critical lab result(s), covid+. 13:52 CXR XRAY In Process Unspecified. EDMS 14:46 Patient has correct armband on for positive identification. bw 14:46 No provider procedures requiring assistance completed. IV discontinued. bw Administered Medications: 12:11 Drug: Albuterol - atroVENT (ipratropium) (3:1) (2.5 mg - 0.5 mg) 3 ml Route: Nebulizer; bw 12:11 Drug: Decadron (dexamethasone) 10 mg Route: IM; Site: right deltoid; bw 12:12 Drug: Tussionex Pennkinetic ER (chlorpheniramine-hydrocodone) 5 ml Route: PO; bw Outcome: 14:38 Discharge ordered by . pm1 14:46 Discharged to home ambulatory. bw 14:46 Condition: good 14:46 Discharge instructions given to patient, family. 14:59 Patient left the ED. bw Signatures: Dispatcher [employer] EDIL Ingrid Solomon ds1 Jordan Rubi NP CANCER REGISTRY COORDINATOR pm1 Elisabeth Li RN RN Erin Gibbons RN RN Corrections: (The following items were deleted from the chart) 10:19 10:16 Chief complaint: SOB, productive cough, and fever x 6 days. TMAX 101. hb hb
--- NOTE | 2020-06-15 14:39 | EDPHYS ---
Physician Documentation [facility] Name: Miguel Hayes Age: 50 yrs Sex: Male : 1970 Arrival Date: 06/15/2020 Time: 10:12 Bed 18 Private MD: ED Physician Freddy Puri HPI: 06/15 12:11 This 50 yrs old Male presents to ER via Ambulatory with complaints of Fever. pm1 12:11 The patient reports fever, that was measured at 101 degrees Fahrenheit. Onset: The pm1 symptoms/episode began/occurred 6 day(s) ago. Modifying factors: there are no obvious modifying factors. Associated signs and symptoms: Pertinent positives: cough, with clear sputum, headache, shortness of breath, body aches, change in smell and taste. Severity of symptoms: in the emergency department the symptoms are unchanged. The patient has not experienced similar symptoms in the past. The patient has not recently seen a physician. Historical: - Allergies: 10:19 No Known Allergies; hb - PMHx: 10:19 liver failure; hb - PSHx: 10:19 left foot; hb - Immunization history:: Client reports having NOT received the Covid vaccine. Flu vaccine is not up to date. - Social history:: Smoking status: Patient denies any tobacco usage or history of. ROS: 12:11 ENT: Negative for injury, pain, and discharge, Neck: Negative for injury, pain, and pm1 swelling, Cardiovascular: Negative for chest pain, palpitations, and edema. 12:11 Abdomen/GI: Negative for abdominal pain, nausea, vomiting, diarrhea, and constipation, Back: Negative for injury and pain, : Negative for injury, bleeding, discharge, and swelling, MS/Extremity: Negative for injury and deformity, Skin: Negative for injury, rash, and discoloration. 12:11 Constitutional: Positive for body aches, fever, Negative for poor PO intake. 12:11 Respiratory: Positive for cough, shortness of breath. 12:11 Neuro: Positive for headache, Negative for numbness, tingling, weakness. Exam: 12:11 Constitutional: This is a well developed, well nourished patient who is awake, alert, pm1 and in no acute distress. Head/Face: Normocephalic, atraumatic. 12:11 Back: No spinal tenderness. No costovertebral tenderness. Full range of motion. Skin: Warm, dry with normal turgor. Normal color with no rashes, no lesions, and no evidence of cellulitis. MS/ Extremity: Pulses equal, no cyanosis. Neurovascular intact. Full, normal range of motion. 12:11 Cardiovascular: Exam negative for acute changes, Rate: normal, Rhythm: regular, Pulses: no pulse deficits are appreciated. 12:11 Respiratory: Exam negative for acute changes, respiratory distress, shortness of breath, Breath sounds: bronchial sounds, that are mild. 12:11 Abdomen/GI: Inspection: abdomen appears normal, Palpation: abdomen is soft and non-tender, in all quadrants. 12:11 Neuro: Exam negative for acute changes, Orientation: is normal, Mentation: is normal, Motor: is normal, moves all fours. Vital Signs: 10:16 BP 178 / 92; Pulse 77; Resp 18; Temp 98.8(TE); Pulse Ox 96% on R/A; Weight 103.42 kg; hb Height 5 ft. 11 in. (180.34 cm); Pain 3/10; 13:30 BP 151 / 90; Pulse 89; Resp 18; Pulse Ox 96% on R/A; bw 10:16 Body Mass Index 31.80 (103.42 kg, 180.34 cm) hb MDM: 11:21 Patient medically screened. pm1 14:37 Data reviewed: vital signs. Data interpreted: Pulse oximetry: on room air is 96 %. pm1 Interpretation: normal. Counseling: I had a detailed discussion with the patient and/or guardian regarding: the historical points, exam findings, and any diagnostic results supporting the discharge/admit diagnosis, lab results, radiology results, the need for outpatient follow up, to return to the emergency department if symptoms worsen or persist or if there are any questions or concerns that arise at home. 06/15 11:42 Order name: COVID-19 : Document "Date of Symptom Onset" if Symptomatic. pm1 06/15 11:42 Order name: Strep; Complete Time: 14:15 pm1 06/15 13:00 Order name: Throat Culture EDNV 06/15 13:35 Order name: COVID-19/FLU A+B; Complete Time: 14:15 EDNV 06/15 11:42 Order name: CXR XRAY; Complete Time: 14:15 pm1 06/15 11:42 Order name: Droplet/Contact Precautions; Complete Time: 12:09 pm1 06/15 11:42 Order name: Labs collected and sent; Complete Time: 12:14 pm1 06/15 11:42 Order name: O2 Per Protocol; Complete Time: 12:14 pm1 Administered Medications: 12:11 Drug: Albuterol - atroVENT (ipratropium) (3:1) (2.5 mg - 0.5 mg) 3 ml Route: Nebulizer; bw 12:11 Drug: Decadron (dexamethasone) 10 mg Route: IM; Site: right deltoid; bw 12:12 Drug: Tussionex Pennkinetic ER (chlorpheniramine-hydrocodone) 5 ml Route: PO; bw Disposition: 16:41 Co-signature as Attending Physician, Freddy Puri MD. rn Disposition: 06/15/20 14:38 Discharged to Home. Impression: Pneumonia due to SARS-associated coronavirus. - Condition is Stable. - Discharge Instructions: COVID-19. - Prescriptions for Prednisone 20 mg Oral Tablet - take 3 tablet by ORAL route once daily for 5 days; 15 tablet. Albuterol Sulfate 90 mcg/actuation - inhale 1-2 puff by INHALATION route every 4-6 hours; 1 Inhaler. Guaifenesin AC 10- 100 mg/5 mL Oral Liquid - take 10 milliliter by ORAL route every 4 hours As needed; 240 milliliter. - Medication Reconciliation Form, Thank You Letter, Antibiotic Education, Prescription Opioid Use form. - Follow up: Emergency Department; When: As needed; Reason: Worsening of condition. Follow up: Private Physician; When: 2 - 3 days; Reason: Recheck today's complaints, Continuance of care, Re-evaluation by your physician. - Problem is new. - Symptoms have improved. Signatures: Dispatcher [employer] EDMS Freddy Puri MD MD rn Marinas, Patrick, TREVOR SURVEY DATA TECHNICIAN pm1 Elisabeth Li RN RN hb Webb, Bethany, RN RN bw Corrections: (The following items were deleted from the chart) 12: 11:42 CORONAVIRUS ordered. EDMS EDMS 12:29 11:42 Influenza Screen (A \\T\\ B)+[id number].LAB.BRZ ordered. EDMS EDMS 14:59 14:38 06/15/2020 14:38 Discharged to Home. Impression: Pneumonia due to SARS-associated bw coronavirus. Condition is Stable. Forms are Medication Reconciliation Form, Thank You Letter, Antibiotic Education, Prescription Opioid Use. Follow up: Emergency Department; When: As needed; Reason: Worsening of condition. Follow up: Private Physician; When: 2 - 3 days; Reason: Recheck today's complaints, Continuance of care, Re-evaluation by your physician. Problem is new. Symptoms have improved. pm1
[2020-06-15 19:58] VITALS: TEMP 98.8; O2SAT 96
[2020-06-15 19:59] VITALS: BP 151/90
== END 2020-06-15 14:59 | disposition home or self-care (01) ==
LOC: ER 10:11
DX: U07.1 COVID-19 (principal); J12.82 Pneumonia due to coronavirus disease 2019
CPT/HCPCS: 87070; 87081; 0240U; 71045; 96372; 99284; J1100

== ENCOUNTER 2020-06-18 10:12 | Inpatient (IN) | payer OTHER ==
--- OUTSIDE RECORDS SUMMARY | 2020-06-18 10:17 | XMS REPORT | Continuity of Care Document ---
:[address] [facility] t Address [address] [place] [address] Care Team Providers Name Role Phone Latrell Fisher MD Primary Care Physician Vikram Jenkins Attending Clinician Hoang STODDARD Attending Clinician Unavailable Roosevelt Rogers MD Attending Clinician Roosevelt ROGERS Attending Clinician Unavailable Mando STODDARD Attending Clinician Unavailable JOSE J COREA Attending Clinician Unavailable JONNY ORTEGA Attending Clinician Unavailable JOSE J COREA Admitting Clinician Unavailable Payers Payer Name Policy Type Policy Effective Date Expiration Date Sour ce Number [facility] [id number] [facility] MGD CAREUNITED 00:00:00 - Medica l HMO POS [facility] [id number]/ 03/2017-PresentHMO /POS Problems Condition Condition Condition Status Onset Resolution Last Treating Co mments Source Name Details Category Date Date Treatment Clinician Date Secondary Secondary Disease Active [facility]ens[facility] 3-12 Lucita kes - on on 00:00: Medical 00 Center Iron Iron Disease Active 2014-[address] [facility] overload overload 1-23 Assessmen Karmen es - 00:00: t & Plan: Medical 00 Serum Center ferritin was elevated to 1501 with normal % transferr in saturatio n. Elevated ferritin could be because of underlyin g ONEAL, but typically this degree of elevation is not seen. We will repeat iron studies and check HFE mutation analysis. If liver biopsy is performed in future we will also perform iron staining. Fatty Fatty Disease Active 2014-03 [facility] liver liver 03[facility], disease, [facility]: t & Plan: [...] carbohydr ates. Obesity Obesity Disease Active 2014-03 [facility] 03-30 [facility] - 00:00: t & Plan: Medical 00 Obesity Center is a risk factor for NAFLD. We discussed weight loss with dietary modificat ion and exercise. See discussio n in NAFLD section. Elevated Elevated Disease Active 2014-03 [facility]: t & Plan: [...] clinic visit. Family Family Disease Active 2014-03 [facility] history of history [facility] Ingrid - atheroscle atheroscle 00:00: t & Plan: Medical rosis rosis 00 Family Center history of diabetes in mom and dad, and premature CAD in father is a risk factor for diabetes and atheroscl erosis in patient. We will check fasting lipids, HbA1C and insulin level. Further recommend ations to follow. Immunity Immunity Disease Active 2014-03 Last [facility] Phoebe tamayo status status 03-30 [facility] - testing testing 00:00: t & Plan: Medic al 00 We will Center test for immunity against Hep A and Hep B. Immunizat ion recommend ations to follow. Allergies, Adverse Reactions, Alerts This patient has no known allergies or adverse reactions. Family History Family Member Diagnosis Comments Start Date Stop Date Source Natural mother Diabetes [facility] Natural mother Other [facility] Natural father Diabetes [facility] Natural father Heart disease [facility] Natural father Kidney failure [facility] Social History Social Habit Start Date Stop Date Quantity Comments Source Sex Assigned At [facility] Tobacco use and 2019-05-16 2019-05-[address] [facility] exposure 00:00:00 00:00:00 [facility] Alcohol intake 2019-05-16 2019-05-16 Current [facility] 00:00:00 00:00:00 non-drinker of Medical nter alcohol (finding) Smoking Status Start Date Stop Date Source Never smoker [facility] Medications Ordered Filled Start Stop Current Ordering Indication Dosage Frequency Signature Comments Components Source Medication Medication Date Date Medication? Clinician (SIG) Name Name aspirin 81 2019- Yes 81mg QD Take [address] [facility] EC 9-08 by mouth [facility] - tablet 09:23: daily. [address] Vital Signs Vital Name Observation Time Observation Value Comments Source Systolic blood 2019-11-14 08:47:00 148 mm[Hg] [facility] Diastolic blood 2019-11-14 08:47:00 89 mm[Hg] [facility] S [facility] Heart rate 2019-11-14 08:47:00 72 /min [facility] Body temperature 2019-11-14 08:47:00 36.28 Nancy [facility] Respiratory rate 2019-11-14 08:47:00 18 /min [facility] Body height 2019-11-14 08:47:00 177.8 cm [facility] Body weight 2019-11-14 08:47:00 107.956 kg [facility] BMI 2019-11-14 08:47:00 34.15 kg/m2 [facility] Oxygen saturation in 2019-11-14 08:47:00 97 /min [facility] - Arterial blood by Medical Ce nter Pulse oximetry Procedures Procedure Date / Time Performed Performing Clinician [facility] e BASIC METABOLIC PANEL 2019-11-14 10:13:00 Rosas, Line [place] [facility] (7) [facility] HEPATIC FUNCTION PANEL 2019-11-14 10:13:00 Rosas, Line Kast[place] p [facility] CBC W/PLT COUNT & AUTO 2019-11-14 10:13:00 Rosas, Line Kastru p [facility] DIFFERENTIAL [facility] Center FERRITIN 2019-11-14 10:13:00 Rosas Line [facility] S [facility] Plan of Care Planned Activity Planned Date Details Comments Source Future Scheduled 2020-11-[address] [facility] - Test 00:00:00 (Season Ended) [code Medical Center = INFLUENZA VACCINE (Season Ended)] Future Scheduled 2020-03-[address] [facility] - Test 00:00:00 (12+) [code = [facility] DEPRESSION SCREENING (12+)] Future Scheduled 2019-04-[address] [facility] - Test 00:00:00 (procedure) [code = [facility] 28120062] Future Scheduled 2018 SHINGLES VACCINES ([address] [facility] - Test 00:00:00 of 2) [code = [facility] SHINGLES VACCINES (1 of 2)] Future Scheduled 1987 DTAP/TDAP/TD VACCINES [facility] - Test 00:00:00 (1 - Tdap) [code = Medical enter DTAP/TDAP/TD VACCINES (1 - Tdap)] Future Scheduled [address] [facility] Karmen es - Test 00:00:00 malignant neoplasm of [facility] colon (procedure) [code = 951245274] Results Test Description Test Time Test Comments Results Result Comments Source Ferritin 2019-11-16 19:11:00 Test Item Value Reference Range Interpretation Comme nts Ferritin (test code = 2276-4) 418.88 ng/mL 5-275 H SULLY (test code = SULLY) Biomechanical Engineer ID - ROSYASI Lab Interpretation (test code = 64369-8) Abnormal [facility]2020-[facility] 19:11:00 Test Item Value Reference Range Interpretation Comments FERRITIN (BEAKER) (test code = 418.88 ng/mL 5.00-275.00 H 361) Biomechanical Engineer ID - EDASIBasic Metabolic [id number] 14:18:00 Test Item Value Reference Range Interpretation Comments Sodium (test code = 138 meq/L 984-944 4433-2) Potassium (test code = 4.3 meq/L 3.5-5.1 2823-3) Chloride (test code = 106 meq/L 98-107 2075-0) CO2 (test code = 24 meq/L 22-29 2028-9) BUN (test code = 13 mg/dL 7-21 3094-0) Creatinine (test code 0.96 mg/dL 0.57-1.25 = 2160-0) Glucose (test code = 118 mg/dL 70-105 H 2345-7) Calcium (test code = 8.8 mg/dL 8.4-10.2 76871-7) EGFR (test code = 83 mL/min/1.73 [place] [address]-9) NOT ACCURATE CREATININE CLEARANCE IN PREDICTING GLOMERULAR FILTRATION RATE . ESTIMATED GFR I S NOT APPLICABLE FOR DIALYSIS PATIENTS. SULLY (test code = SULLY) Biomechanical Engineer ID - COCO [place] Lab Interpretation Abnormal (test code = 68639-1) [facility] function [id number] 14:18:00 Test Item Value Reference Range Interpretation Comments Protein, Total (test 8.0 See_Comment [Autom ated code = 3095-2) message] The system which generated this result transmit maxim reference range : 6.0 - 8.3 gm/dL . The reference range was not u sed to interpret th is result as normal/abnormal . Albumin (test code = 4.6 g/dL 3.5-5 89418-9) Total Bilirubin (test 0.7 mg/dL 0.2-1.2 code = 1975-2) Bilirubin, Direct 0.4 mg/dL 0.1-0.5 (test code = 1968-7) Alkaline Phosphatase 66 U/L 40-150 (test code = 6768-6) AST (test code = 69 U/L 5-34 H 1920-8) ALT (test code = 104 U/L 6-55 H 1742-6) SULLY (test code = SULLY) Biomechanical Engineer ID - COCO C Lab Interpretation Abnormal (test code = 86214-5) [facility] Center[facility] FUNCTION [id number] 14:18:00 Test Item Value Reference Range Interpretation [...] code = 104 U/L 6-55 H 347) Biomechanical Engineer ID - COCO CBASIC METABOLIC [id number] 14:18:00 Test Item Value Reference Range Interpretation [...] S NOT APPLICABLE FOR DIALYSIS PATIEN TS. Biomechanical Engineer ID - COCO CCBC with platelet count + automated [id number] 12:21:00 Test Item Value Reference Range Interpretation Comments WBC (test code = 6690-2) 7.0 See_Comment [A utomated message] The system Proxible generated this result transmitted ref erence range: 3.5 - 10 .5 K/L. The refe rence range was not u sed to interpret this result as normal/abnor mal. RBC (test code = 789-8) 5.74 See_Comment [Au tomated message] The system Prox[employer] generated this result transmitted ref erence range: 4.63 - 6 .08 M/L. The refe rence range was not u sed to interpret this result as normal/abnor mal. MCHC (test code = 786-4) 32.1 See_Comment L [A utomated message] The system Proxible generated this result transmitted ref erence range: [...] See_Comment [Aut omated message] 777-3) The system Proxible generated this result transmitted ref erence range: 150 - 45 0 K/CU MM. The referen ce range was not u sed to interpret this result as normal/abnor mal. MPV (test code = 11.9 fL 9.4-12.4 09626-8) nRBC (test code = 413) 0 See_Comment [Aut omated message] The system Proxible generated this result transmitted ref erence range: [...] See_Comment [Aut omated message] 670) The system Proxible generated this result transmitted ref erence range: 1.78 - 5 .38 K/L. The refe rence range was not u sed to interpret this result as normal/abnor mal. # Lymphs (test code = 2.04 See_Comment [Auto mated message] 414) The system Proxible generated this result transmitted ref erence range: 1.32 - 3 .57 K/L. The refe rence range was not u sed to interpret this result as normal/abnor mal. # Monos (test code = 0.52 See_Comment [Autom ated message] 415) The system Pro[employer] generated this result transmitted ref erence range: 0.30 - 0 .82 K/L. The refe rence range was not u sed to interpret this result as normal/abnor mal. # Eos (test code = 416) 0.14 See_Comment [Au tomated message] The system Proxible generated this result transmitted ref erence range: 0.04 - 0 .54 K/L. The refe rence range was not u sed to interpret this result as normal/abnor mal. # Baso (test code = 417) 0.05 See_Comment [A utomated message] The system Proxible generated this result transmitted ref erence range: 0.01 - 0 .08 K/L. The refe rence range was not u sed to interpret this result as normal/abnor mal. Immature 1 % 0-1 Granulocytes-Relative (test code = 2801) Lab Interpretation (test Abnormal code = 58977-1) [facility] W/PLT COUNT & AUTO [id number] 12:21:00 Test Item Value Reference Range Interpretation [...] 0-1 PERCENT (BEAKER) (test code = 2801) [id number] 12:45:00 Test Item Value Reference Range Interpretation Comments FERRITIN (BEAKER) (test code = 361) 289 ng/mL 5-275 H Biomechanical Engineer ID - NIDHI MHEPATIC FUNCTION [id number] 12:22:00 Test Item Value Reference Range Interpretation [...] code = 71 U/L 6-55 H 347) Biomechanical Engineer ID - NIDHI MBASIC METABOLIC [id number] 12:22:00 Test Item Value Reference Range Interpretation [...] S NOT APPLICABLE FOR DIALYSIS PATIEN TS. Biomechanical Engineer ID - NIDHI MCBC W/PLT COUNT & AUTO [id number] 12:20:00 Test Item Value Reference Range Interpretation [...] PERCENT (BEAKER) (test code = 2801) TISSUE [id number] 18:24:00Surgical Pathology Report Case: [id number] Authorizing Provider: Armen Corea MD Collected: 11/17/2018 1501 Ordering Location: [address] PROCEDURE Received: 11/17/2018 1630 Pathologist: Ivan Nieto MD Specimen: Biopsy, Liver LIVER, ULTRASOUND-GUIDED NEEDLE BIOPSIES- STEATOHEPATITIS (CARLY/ONEAL)- FIBROSIS STAGE 2-3 OF 4 Signing Pathologist Direct Phone Line: [phone] signed by Ivan Nieto MD on 11/22/2018 at 6:24PMThe non-alcoholic steatohepatitis (ROGERS) activity scoring is performed according to guidelines fromnon-alcoholic steatohepatitis, clinical research network (Mariam, et al. Hepatology 2005. 41:1313-21), at the request of the clinician, for research related purposes.The ROGERS score is: Steatosis: Grade2 + lobular inflammation, grade 3 + hepatocyte ballooning score 2 = 7/8. The fibrosis score is 2-3 of 4.24960, 64773 X4The specimen is received in a single [...] evaluated Immunohistochemistry technical testing was performed at [facility], Pathology Laboratory where it was developed [...] high complexity clinical laboratory testing.MR, ABDOMEN, WITHOUT [id number] 14:12:00Referring: Dr. Maribel CarranzaED MRI OF ABDOMEN [...] MDReport Verified Date/Time: 11/22/2018 14:12:12 Reading Location: [facility] B1 C013Y CT Body Reading Room U/S, BIOPSY, [id number] 16:56:00Referring: Dr. Maribel Burks for Exam:->Participation in a clinical research trialReason for Exam:->NASHFINAL REPORT US Guided biopsy of the liver . History: History of liver failure. Under medical therapy. Repeat biopsy requested. Acetone Button Paster: Oscar John MD. Magnetic Locater: None. Modality: Ultrasound Sedation: Versed one mg [...] MDReport Verified Date/Time: 11/17/2018 16:56:17 Reading Location: [place] [address] Angio Body Reading Room [id number] 10:17:00 Test Item Value Reference Range Interpretation Comments PARTIAL THROMBOPLASTIN TIME 34.4 seconds 22.5-36.0 (BEAKER) (test code = 760) PROTHROMBIN [id number] 10:16:00 Test Item Value Reference Range Interpretation [...] mechanical heart valves.CBC W/PLT COUNT & AUTO [id number] 10:07:00 Test Item Value Reference Range Interpretation [...] (test code = 2801) MR, ABDOMEN, WITHOUT [id number] 15:56:00Referring: Dr. Maribel CarranzaED MRI OF ABD [...] Butterfieldeport Verified Date/Time: 06/10/2018 15:56:07 Reading Location: [address] Body Reading Room [id number] 12:17:00 Test Item Value Reference Range Interpretation [...] (test code = 2590) MR, ABDOMEN, WITHOUT [id number] 12:17:00Referring: Dr. Maribel Dejesus MRI WITHOUT CONTRAST WITH FAT FRACTIONFINAL REPORT TECHNIQUE: MRI of the abdomen without intravenous contrast for research purposes. INDICATION: Participant in a clinical research trial. COMPARISON: MRI of the abdomen from 04/24/2016. FINDINGS/IMPRESSION:These images were obtained for research purposes. Diffuse fattyinfiltration of the liver. Signed: Yan Harris Verified Date/Time: 03/15/2018 12:17:25 Reading Location: [address] Body Reading Room MR, ABDOMEN, WITHOUT [id number] 14:30:00 Referring: Dr. Maribel Dejesus MRI ABD WITH FAT FRACTIONFINAL REPORT TECHNIQUE: MRI of the abdomen without intravenous contrast for re search purposes. INDICATION: Participant in a clinical research trial. COMPARISON: MRI of the abdomen from 04/24/2016. FINDINGS/IMPRESSION: These images were obtained for research purposes. Diffuse fatty infiltration of the liver. Signed: Blaise Robbins Verified Date/Time: 12/16/2017 14:30:40 [address] ding Location: [address] Body Reading Room TISSUE [id number] 12:17:00Surgical Pathology Report Case: [id number] Authorizing Provider: Armen Corea MD Collected: 10/21/20172138 Ordering Location: [facility] 6 OP Received: 10/21/20172141 Pathologist: Ivan Nieto MD Specimen: Biopsy, Liver, Bx LIVER, ULTRASOUND-GUIDED NEEDLE BIOPSIES- STEATOHEPATITIS- FIBROSIS STAGE 2 OF 4- SEE COMMENT Signing Pathologist Direct Phone Line: [phone] signed by Ivan Nieto MD on 10/25/2017 [...] 6/8. The fibrosis score is 2 of 4.26434, 06568 S9Zbkeh liver diseaseUltrasound-guided nontargeted needle biopsyReceived in formalin [...] reticulin, iron and PAS with diastaseU/S, BIOPSY, [id number] 12:07:00Referring: Dr. Maribel Burks for Exam:->Participation in [...] Hodge Verified Date/Time: 10/21/2017 12:07:36 Reading Location: [address] Ultrasound Reading Room [id number] 09:01:00 Test Item Value Reference Range Interpretation [...] for patients with mechanical heart valves.BASIC METABOLIC [id number] 09:01:00 Test Item Value Reference Range Interpretation [...] PATIEN TS. CBC W/PLT COUNT & AUTO [id number] 08:46:00 Test Item Value Reference Range Interpretation [...] code = 2801) ALPHA FETOPROTEIN (AFP), TUMOR [id number] 13:49:00 Test Item Value Reference Range Interpretation Comments ALPHA-FETOPROTEIN (BEAKER) (test code < ng/mL <10.0 = 1094) [id number] 12:32:00 Test Item Value Reference Range Interpretation Comments FERRITIN (BEAKER) (test code = 361) 573 ng/mL 5-275 H [id number] 12:18:00 Test Item Value Reference Range Interpretation Comments MAGNESIUM (BEAKER) (test code = 2.2 mg/dL 1.6-2.6 627) BASIC METABOLIC [id number] 12:18:00 Test Item Value Reference Range Interpretation [...] APPLICABLE FOR DIALYSIS PATIEN TS. HEPATIC FUNCTION [id number] 12:18:00 Test Item Value Reference Range Interpretation [...] % 20-55 (test code = 2590) PROTHROMBIN [id number] 11:42:00 Test Item Value Reference Range Interpretation [...] 0-1 PERCENT (BEAKER) (test code = 2801) [id number] 15:35:00 Test Item Value Reference Range Interpretation [...] 20-55 (test code = 2590) HEPATIC FUNCTION [id number] 13:03:00 Test Item Value Reference Range Interpretation [...] 129 U/L 6-55 H 347) BASIC METABOLIC [id number] 13:03:00 Test Item Value Reference Range Interpretation [...] PATIEN TS. CBC W/PLT COUNT & AUTO [id number] 12:29:00 Test Item Value Reference Range Interpretation [...] PERCENT (BEAKER) (test code = 2801) TISSUE [id number] 12:01:00Surgical Pathology Report Case: [id number] --- Authorizing Provider: Era Matias, Ordering Provider: Era Matias NP HOT STAMP OPERATOR Ordering Location: [facility] Radiology Angio Collected: 05/19/2016 1411 Pathologist: Ivan Nieto MD Received: 05/19/20161411 Specimen: Liver LIVER, ULTRASOUND-GUIDED NEEDLE BIOPSIES- STEATOHEPATITIS- FIBROSIS STAGE 2-3 OF 4 Signing Pathologist Direct Phone Line: [phone] non-alcoholic steatohepatitis (ROGERS) activity scoring is performed according to guidelines from non-alcoholic steatohepatitis, clinical research network (Mariam, et al. Hepatology 2005. 41:1313-21), at the request of the clinicianThe ROGERS score is: Steatosis: Grade 3 + lobular inflammation, grade 3 + hepatocyte ballooning score 2 = 8/8. The fibrosis score is 2-3 of 058529, 44922 X4NASH, research trialRight lobe liver biopsyReceived in [...] framework is focally disrupted in foci of steatosis.PT/[id number] 08:56:00 Test Item Value Reference Range Interpretation [...] 2.5-3.5 for patients with mechanical heart valves.PLATELET [id number] 08:44:00 Test Item Value Reference Range Interpretation Comments PLATELET COUNT (BEAKER) (test 206 K/CU MM 150-430 code = 756) ALPHA FETOPROTEIN (AFP), TUMOR [id number] 15:45:00 Test Item Value Reference Range Interpretation Comments ALPHA-FETOPROTEIN (BEAKER) (test code < ng/mL <10.0 = 1094) Effective 01/23/2014: Reference Range ChangeNew: <10.0 Previous: 0.0-8.0 [id number] 15:43:00 Test Item Value Reference Range Interpretation Comments FERRITIN (BEAKER) (test code = 361) 679 ng/mL 5-275 H Effective 01/23/2014: Reference Range ChangeNew: Male 5-275 Previous: Male 22-322 Female 5-275 Female 10-291LIPID [id number] 15:26:00 Test Item Value Reference Range Interpretation [...] 130-159 High 160-189 Very High >=190BASIC METABOLIC [id number] 15:26:00 Test Item Value Reference Range Interpretation [...] APPLICABLE FOR DIALYSIS PATIEN TS. HEPATIC FUNCTION [id number] 15:26:00 Test Item Value Reference Range Interpretation [...] = 2590) CBC W/PLT COUNT & AUTO [id number] 15:19:00 Test Item Value Reference Range Interpretation [...] L 0.00-0.20 (test code = 417) 0.00PROTHROMBIN [id number] 15:14:00 Test Item Value Reference Range Interpretation [...]
[2020-06-18] MEDS ORDERED: dexAMETHasone 10 MG/ML VIAL ONE (10:49)
[2020-06-18 10:51] LABS: Absolute Lymphocytes (CBC) 0.6 K/uL (0.7-4.9); Basophils % 0.1 % (0-1.3); Hematocrit 46.5 % (39.6-49.0); Lymphocytes % 6.2 % (15.3-44.8); MPV 9.2 fL (7.6-11.3); RBC Red Blood Cell Count 5.76 M/uL (4.33-5.43)
--- NOTE | 2020-06-18 10:59 | RAD REPORT ---
EXAM DESCRIPTION: RAD - Chest Single View - 06/18/2020 10:50 am CLINICAL HISTORY: DYSPNEA Chest pain. COMPARISON: Chest Single View dated 06/15/2020; Chest Single View dated 06/07/2018; CHEST SINGLE VIEW d ated 02/27/2010 FINDINGS: Portable technique limits examination quality. Bilateral pulmonary interstitial lung opacities are noted which appear mildly progressive since the c omparative study. This is most likely related to underlying a viral infection. The heart is normal in size. No displaced fractures.
[2020-06-18 11:29] LABS: Protime INR 1.26
[2020-06-18 11:36] LABS: ALT/SGPT 84 U/L (12-78); AST/SGOT 43 U/L (15-37); Albumin 3.2 g/dL (3.4-5.0); Alkaline Phosphatase 72 U/L (45-117); BUN Blood Urea Nitrogen 15 mg/dL (7-18); Bicarbonate 27 mmol/L (21-32); Bilirubin Direct 0.6 mg/dL (0-0.2); Bilirubin Total 1.3 mg/dL (0.2-1.0); Ferritin 941.2 ng/mL (26-388); Glucose Level 253 mg/dL (74-106); Lipase 196 U/L (73-393); Potassium 4.1 mmol/L (3.5-5.1); Sodium Level 135 mmol/L (136-145); Troponin (Emerg Dept Use Only) < 0.02 ng/mL (0.0-0.045)
--- NOTE | 2020-06-18 11:44 | EDPHYS ---
Physician Documentation [facility] Name: Miguel Hayes Age: 50 yrs Sex: Male : 1970 Arrival Date: 06/18/2020 Time: 10:18 Bed 20 Private MD: ED Physician Pawel Garcia HPI: 06/18 11:39 This 50 yrs old Male presents to ER via Wheelchair with complaints of kb Shortness Of Breath. 11:39 The patient has shortness of breath at rest, with light activity. Onset: The kb symptoms/episode began/occurred 1 week(s) ago. Duration: The symptoms are continuous, and are steadily getting worse. The patient's shortness of breath is aggravated by exertion, is alleviated by nothing. Associated signs and symptoms: Pertinent positives: non-productive cough, fever. Severity of symptoms: At their worst the symptoms were moderate in the emergency department the symptoms are unchanged. The patient has not experienced similar symptoms in the past. The patient has been recently seen at the [facility] Emergency Department, this week, for similar complaints labs were performed, X-rays were performed. Pt reports fever, cough, shortness of breath started 1 week ago. Came here over the weekend and tested positive for COVID and x-ray revealed covid pneumonia. States the shortness of breath has just gotten worse. Historical: - Allergies: 10:25 No Known Allergies; aa5 - PMHx: 10:25 liver failure; aa5 - PSHx: 10:25 left foot; aa5 - Immunization history:: Adult Immunizations up to date. - Social history:: Smoking status: Patient denies any tobacco usage or history of. ROS: 11:34 Cardiovascular: Negative for chest pain, palpitations, and edema, Abdomen/GI: Negative kb for abdominal pain, nausea, vomiting, diarrhea, and constipation, MS/Extremity: Negative for injury and deformity, Skin: Negative for injury, rash, and discoloration, Neuro: Negative for headache, weakness, numbness, tingling, and seizure. 11:34 Respiratory: Positive for cough, dyspnea on exertion, shortness of breath. 11:35 Constitutional: Positive for body aches, chills, fatigue, fever, malaise. kb Exam: 11:39 Constitutional: This is a well developed, well nourished patient who is awake, alert, kb and in no acute distress. Head/Face: Normocephalic, atraumatic. Cardiovascular: Regular rate and rhythm with a normal S1 and S2. No gallops, murmurs, or rubs. No pulse deficits. Abdomen/GI: Soft, non-tender. No distention Skin: Warm, dry with normal turgor. Normal color. MS/ Extremity: Pulses equal, no cyanosis. Neurovascular intact. Full, normal range of motion. Neuro: Awake and alert, GCS 15, oriented to person, place, time, and situation. Moves all extremities. Normal gait. 11:39 Respiratory: mild respiratory distress is noted, Respirations: labored breathing, that is mild, that is moderate, Breath sounds: are clear throughout. Vital Signs: 10:18 BP 143 / 77; Pulse 92; Resp 32 S; Temp 98.6(O); Pulse Ox 84% on R/A; aa5 10:20 Pulse Ox 91% on 3 lpm NC; aa5 13:27 BP 124 / 82; Pulse 80; Resp 20; Pulse Ox 94% ; bp MDM: 10:19 Patient medically screened. kb 11:38 Data reviewed: vital signs, nurses notes. Data interpreted: Pulse oximetry: on room air kb is 84 %. Interpretation: hypoxia. Plan: O2 by NC applied. ED course: oxygen saturation increased to 95-97% on 4L o2 via nc. Pt reported he could breathe easier. 11:39 Counseling: I had a detailed discussion with the patient and/or guardian regarding: the kb historical points, exam findings, and any diagnostic results supporting the discharge/admit diagnosis, lab results, radiology results, the need for further work-up and treatment in the hospital. Physician consultation: Rachid Roche DO was contacted at 11:39, regarding admission, to the telemetry unit. patient's condition, and will see patient in ED. 06/18 10:21 Order name: Blood Culture Adult (2) 06/18 10:21 Order name: BMP kb 06/18 10:21 Order name: C-Reactive Protein kb 06/18 10:21 Order name: CBC with Diff kb 06/18 10:21 Order name: D-Dimer kb 06/18 10:21 Order name: Ferritin kb 06/18 10:21 Order name: Lactate kb 06/18 10:21 Order name: LFT's kb 06/18 10:21 Order name: Lipase kb 06/18 10:21 Order name: Procalcitonin kb 06/18 10:21 Order name: PT-INR kb 06/18 10:22 Order name: Ptt, Activated; Complete Time: 11:36 kb 06/18 10:22 Order name: Troponin (emerg Dept Use Only); Complete Time: 11:36 kb 06/18 10:22 Order name: Blood Culture EDMS 06/18 10:22 Order name: CXR XRAY; Complete Time: 11:11 kb 06/18 10:22 Order name: EKG; Complete Time: 10:22 kb 06/18 10:22 Order name: Cardiac monitoring; Complete Time: 10:34 kb 06/18 10:22 Order name: Basic Metabolic Panel; Complete Time: 11:36 EDMS 06/18 10:22 Order name: C-Reactive Protein; Complete Time: 11:36 EDMS 06/18 10:22 Order name: CBC with Automated Diff; Complete Time: 12:02 EDMS 06/18 10:22 Order name: D-Dimer; Complete Time: 11:36 EDMS 06/18 10:22 Order name: Ferritin; Complete Time: 11:36 EDMS 06/18 10:22 Order name: Lactate; Complete Time: 11:36 EDMS 06/18 10:22 Order name: Liver (Hepatic) Function; Complete Time: 11:36 EDMS 06/18 10:22 Order name: Lipase; Complete Time: 11:36 EDMS 06/18 10:22 Order name: Procalcitonin; Complete Time: 11:56 EDMS 06/18 10:22 Order name: Protime (+INR); Complete Time: 11:36 EDMS 06/18 10:59 Order name: CBC Smear Scan; Complete Time: 12:02 EDMS 06/18 11:36 Order name: CT Chest For PE Angio; Complete Time: 12:02 kb 06/18 10:22 Order name: Droplet/Contact Precautions; Complete Time: 10:34 kb 06/18 10:22 Order name: IV Start; Complete Time: 10:35 kb 06/18 10:22 Order name: Labs collected and sent; Complete Time: 10:35 kb 06/18 10:22 Order name: O2 Per Protocol; Complete Time: 10:35 kb 06/18 10:22 Order name: O2 Sat Monitoring; Complete Time: 10:35 kb Administered Medications: 10:34 Drug: Decadron - Dexamethasone 10 mg Route: IVP; Site: right antecubital; bp 11:49 Follow up: Response: No adverse reaction; Marked relief of symptoms bp Disposition: 16:05 Co-signature as Attending Physician, Pawel Garcia MD I agree with the assessment and kdr plan of care. Disposition: 06/18/20 11:43 Hospitalization ordered by Rachid Roche for Inpatient Admission. Preliminary diagnosis are Hypoxia, Viral pneumonia, unspecified, Coronavirus infection, unspecified. - Bed requested for Telemetry/MedSurg (Inpatient). - Status is Inpatient Admission. zb - Condition is Stable. - Problem is new. - Symptoms are unchanged. Signatures: Dispatcher [employer] EDMS Winsome Moreno, MARKY-C MARKY-Frida Jiménez RN RN Pawel Santos MD MD [facility] Dominique Scott RN RN aa5 John Mulligan RN RN Lorelei Vernon RN RN zb Corrections: (The following items were deleted from the chart) 11:35 11:34 Constitutional: Negative for fever, chills, and weight loss, Cardiovascular: kb Negative for chest pain, palpitations, and edema, Abdomen/GI: Negative for abdominal pain, nausea, vomiting, diarrhea, and constipation, MS/Extremity: Negative for injury and deformity, Skin: Negative for injury, rash, and discoloration, Neuro: Negative for headache, weakness, numbness, tingling, and seizure, kb 11:39 11:38 ED course: oxygen saturation increased to 95-97% on 4L o2 via nc. kb kb 12:07 11:43 Hospitalization Ordered by Rachid Roche DO for Observation. Preliminary kb diagnosis is Hypoxia; Viral pneumonia, unspecified; Coronavirus infection, unspecified. Bed requested for Telemetry/MedSurg (observation). Status is Observation. Condition is Stable. Problem is new. Symptoms are unchanged. kb 13:16 12:07 06/18/2020 11:43 Hospitalization Ordered by Rachid Roche DO for Inpatient dw Admission. Preliminary diagnosis is Hypoxia; Viral pneumonia, unspecified; Coronavirus infection, unspecified. Bed requested for Telemetry/MedSurg (Inpatient). Status is Inpatient Admission. Condition is Stable. Problem is new. Symptoms are unchanged. kb 13:52 13:16 06/18/2020 11:43 Hospitalization Ordered by Rachid Roche DO for Inpatient zb Admission. Preliminary diagnosis is Hypoxia; Viral pneumonia, unspecified; Coronavirus infection, unspecified. Bed requested for Telemetry/MedSurg (Inpatient). Status is Inpatient Admission. Condition is Stable. Problem is new. Symptoms are unchanged. dw
--- NOTE | 2020-06-18 11:44 | ER ---
Nurse's Notes [facility] Name: Miguel Hayes Age: 50 yrs Sex: Male : 1970 Arrival Date: 06/18/2020 Time: 10:18 Bed 20 Private MD: Diagnosis: Hypoxia;Viral pneumonia, unspecified;Coronavirus infection, unspecified Presentation: 06/18 10:18 Chief complaint: Patient states: "shortness of breath since this weekend when I came in aa5 here and it's getting worse". Pt reports being diagnosed with COVID-19 Pneumonia. Pt currently tachypneic and 84% RA during triage. 10:18 Coronavirus screen: Client reports previous positive COVID test result. Ebola Screen: aa5 Patient negative for fever greater than or equal to 101.5 degrees Fahrenheit, and additional compatible Ebola Virus Disease symptoms. Initial Sepsis Screen: Does the patient meet any 2 criteria? RR > 20 per min. HR > 90 bpm. Yes Does the patient have a suspected source of infection? Yes:. Risk Assessment: Do you want to hurt yourself or someone else? Patient reports no desire to harm self or others. Onset of symptoms was June 2020. 10:18 Acuity: KAITLYN 2 aa5 10:18 Method Of Arrival: Wheelchair aa5 Triage Assessment: 10:25 General: Appears distressed, uncomfortable, Behavior is cooperative, appropriate for bp age, anxious. Pain: Denies pain. EENT: No deficits noted. Neuro: No deficits noted. Cardiovascular: Rhythm is sinus rhythm. Respiratory: Reports shortness of breath Breath sounds are clear bilaterally. Onset: The symptoms/episode began/occurred today, the patient has moderate shortness of breath. GI: No signs and/or symptoms were reported involving the gastrointestinal system. : No signs and/or symptoms were reported regarding the genitourinary system. Derm: No deficits noted. Musculoskeletal: No deficits noted. Historical: - Allergies: 10:25 No Known Allergies; aa5 - PMHx: 10:25 liver failure; aa5 - PSHx: 10:25 left foot; aa5 - Immunization history:: Adult Immunizations up to date. - Social history:: Smoking status: Patient denies any tobacco usage or history of. Screenin:25 Abuse screen: Denies threats or abuse. Denies injuries from another. Nutritional bp screening: No deficits noted. Tuberculosis screening: No symptoms or risk factors identified. Fall Risk None identified. Assessment: 10:25 General: SEE TRIAGE NOTE. bp 12:30 Reassessment: No changes from previously documented assessment. Patient and/or family bp updated on plan of care and expected duration. Pain level reassessed. Cardiovascular: Rhythm is sinus rhythm. Respiratory: Airway is patent Respiratory effort is even, labored. 13:29 Cardiovascular: No deficits noted. Respiratory: Airway is patent Respiratory effort is bp even, labored. Vital Signs: 10:18 BP 143 / 77; Pulse 92; Resp 32 S; Temp 98.6(O); Pulse Ox 84% on R/A; aa5 10:20 Pulse Ox 91% on 3 lpm NC; aa5 13:27 BP 124 / 82; Pulse 80; Resp 20; Pulse Ox 94% ; bp ED Course: 10:18 Patient arrived in ED. bp 10:18 Arm band placed on Patient placed in an exam room, on a stretcher. aa5 10:19 Winsome Moreno FNP-C [facility]. kb 10:19 Pawel Garcia MD is Attending Physician. kb 10:19 John Mulligan, MATEO is Primary Nurse. bp 10:22 Triage completed. aa5 10:25 Patient has correct armband on for positive identification. Bed in low position. Call bp light in reach. Side rails up X2. 10:34 First set of blood cultures drawn. Inserted saline lock: 20 gauge in right antecubital kj1 area, using aseptic technique. Blood collected. 10:34 Initial lab(s) drawn, by ky, sent to lab. kj1 10:35 Inserted saline lock: 20 gauge in right antecubital area, using aseptic technique. bp Blood collected. 10:49 CXR XRAY In Process Unspecified. EDMS 10:50 Second set of blood cultures drawn. kj1 11:41 Rachid Roche DO is Hospitalizing Provider. kb 11:50 CT Chest For PE Angio In Process Unspecified. EDMS 13:30 No provider procedures requiring assistance completed. Patient admitted, IV remains in bp place. Administered Medications: 10:34 Drug: Decadron - Dexamethasone 10 mg Route: IVP; Site: right antecubital; bp 11:49 Follow up: Response: No adverse reaction; Marked relief of symptoms bp Outcome: 11:43 Decision to Hospitalize by Provider. zamzam 13:30 Admitted to Med/surg accompanied by tech, via wheelchair, room 408, with oxygen, with bp chart, Report called to KEARA GALINDO 13:30 Condition: stable 13:30 Instructed on the need for admit. 13:52 Patient left the ED. zb Signatures: Dispatcher [employer] Winsome Koch, MARKY-Nilay NEGRO-Dominique Phan RN RN John Melendez RN RN bp Jackson, Kandis kj1 Lorelei Bettencourt RN RN zb Corrections: (The following items were deleted from the chart) 10:47 10:45 Initial lab(s) drawn, by me, sent to lab. kj1 kj1
[2020-06-18 11:56] LABS: Blood Morphology Comment NOT SEEN (NOT SEEN); Platelet Estimate ADEQ; White Blood Cell Scan OK (OK)
--- NOTE | 2020-06-18 11:59 | RAD REPORT ---
EXAM DESCRIPTION: CT - Chest For Pe Angio - 06/18/2020 11:50 am CLINICAL HISTORY: Chest pain. DYSPNEA COMPARISON: No comparisons TECHNIQUE: CT angiogram of the pulmonary arteries was performed with MIP. All CT scans are performed using dose optimization technique as appropriate and may include automated exposure control or mA/KV adjustment according to patient size. FINDINGS: No evidence of pulmonary thromboembolism. No acute aortic finding demonstrated. Extensive alveolar and interstitial lung opacities are present bilaterally, greatest in the lower lob es. This is likely related to COVID-19 infection. No significant pericardial or pleural fluid. No concerning bony finding. IMPRESSION: No evidence of pulmonary thromboembolism. Extensive alveolar and interstitial lung opacities, greatest in the lower lobes as detailed.
[2020-06-18 13:59] VITALS: BMI 31.8
[2020-06-18] MEDS ORDERED: ACETAMINOPHEN 500 MG TAB PO PRN (13:59)
[2020-06-18] MEDS ORDERED: ONDANSETRON 4 MG/2 ML VIAL IV PRN (13:59)
[2020-06-18] MEDS ORDERED: IPRATROPIUM BROM 0.5MG/2.5ML NEB PRN (13:59)
[2020-06-18] MEDS ORDERED: ALBUTEROL 2.5 MG/3 ML NEB SOL NEB PRN (13:59)
--- NOTE | 2020-06-18 14:57 | P.HP ---
Certification for Inpatient Patient admitted to: Inpatient With expected LOS: >2 Midnights Patient will require the following post-hospital care: None Practitioner: I am a practitioner with admitting privileges, knowledge of patient current condition, hospital course, and medical plan of care. Services: Services provided to patient in accordance with Admission requirements found in Title 42 Section 412.3 of the Code of Federal Regulations Patient History Date of Service: 06/18/20 Primary Care Provider: none; Liver specialist-JACEK Grimes Reason for admission: Shortness of breath History of Present Illness: 50-year-old male presented to the emergency room with increasing shortness of breath. Patient with underlying history of liver diseaseNASH. Patient was seen in the ER on Wednesday. He was diagnosed with COVID-19 at that time. He was discharged home. Since that time he has been having increasing shortness of breath. Fever, chills, body aches noted. Shortness of breath got worse today. He had some mild nausea today. He came to the ER for further evaluation. In the ER patient was evaluated. CT scan revealed no pulmonary embolism. Extensive alveolar and interstitial lung opacities noted. White count 10, hemoglobin 15. Sodium 135, potassium within normal range. Creatinine 1.13 with a GFR of 68. Glucose 253. Procalcitonin 0.21. Ferritin 941, CRP 162. Lactic acid normal. D-dimer 759. Total bilirubin 1.3, direct bilirubin 0.6. AST 43, ALT 84. Patient was found to be hypoxic. Patient currently on 2 L per nasal cannula. Patient was admitted for further evaluation and treatment. Allergies No Known Allergies Allergy (Unverified 06/07/18 21:07) Home medications list reviewed: Yes Home Medications: NK [No Home Meds] 06/18/20 - Past Medical/Surgical History Diabetic: No -: Stage III liver diseaseNASH -: L foot sx -: back sx Psychosocial/ Personal History: Patient is - Family History Father -: Heart disease, Hypertension, Diabetes, Kidney disease Mother -: Diabetes, Liver disease - Social History Smoking Status: Never smoker Alcohol use: No CD- Drugs: No Caffeine use: Yes Place of Residence: Home Review of Systems General: Fever, Sweats, Weakness, As per HPI Eyes: Unremarkable ENT: Nose Congestion, As per HPI Respiratory: Cough, Shortness of Breath, SOB with Excertion, As per HPI Cardiovascular: Unremarkable Gastrointestinal: Nausea, As per HPI Genitourinary: Unremarkable Musculoskeletal: As per HPI Integumentary: Unremarkable Neurological: As per HPI Lymphatics: Unremarkable Physical Examination - Vital Signs Temperature: 98.6 F Blood Pressure: 124/82 Pulse: 80 Respirations: 20 - Physical Exam General: Alert, In no apparent distress, Oriented x3, Cooperative HEENT: Atraumatic, Normocephalic, Mucous membr. moist/pink Neck: Supple Respiratory: Crackles/rales Cardiovascular: Normal pulses, Regular rate/rhythm Gastrointestinal: Normal bowel sounds, Soft and benign, Non-distended, No ascites, No tenderness, No masses, No rebound, No guarding Musculoskeletal: No contractures, No erythema, No tenderness, No warmth Integumentary: No tenderness/swelling Neurological: Normal speech, Normal strength at 5/5 x4 extr, Normal tone, Normal affect - Studies Laboratory Data (last 24 hrs) 06/18/20 10:34: PT 14.5 H, INR 1.26, APTT 26.9 06/18/20 10:34: WBC 10.20, Hgb 15.0, Hct 46.5, Plt Count 219 06/18/20 10:34: Sodium 135 L, Potassium 4.1, BUN 15, Creatinine 1.13, Glucose 253 H, Total Bilirubin 1.3 H, AST 43 H, ALT 84 H, Alkaline Phosphatase 72, Lipase 196 Assessment and Plan - Plan Impression: Dyspnea with hypoxia secondary to bilateral Covid 19 pneumonia Hyperglycemia suspect prediabetes versus diabetes Stage III liver diseaseNASH Plan: Dyspnea with hypoxia secondary to bilateral Covid 19 pneumonia: Patient will be admitted for further evaluation and treatment. We will continue with oxygen to maintain sats above 93%. Currently on 3 L per nasal cannula. We will continue with IV steroids, ivermectin and supplementation. Patient not a candidate for remdesivir due to his liver disease. We will continue to monitor closely. Maintain proning. Encourage incentive spirometer. Encourage ambulation. We will continue to monitor and adjust oxygen. Pulmonology consulted to further evaluate. We will start Eliquis for DVT prophylaxis due to elevated D-dimer and risk for DVT. We will continue to monitor closely. Anticipate improvement over the next 72 hours. Hyperglycemia suspect prediabetes versus diabetes: We will check A1c. Will provide sliding scale. Stage III liver diseaseNASH: Patient sees hepatology in [place]. Overall stable. Monitor liver function Discharge Plan: Home Plan to discharge in: Greater than 2 days - Advance Directives Does patient have a Living Will: No Does patient have a Durable POA for Healthcare: No - Code Status/Comfort Care Code Status Assessed: Yes (Patient full code) Time Spent Managing Pts Care (In Minutes): 55
[2020-06-18] MEDS ORDERED: IVERMECTIN 3 MG TABLET PO ONE (15:00)
[2020-06-18] MEDS: METHYLPREDNISOLONE 125 MG INJ IV SCH ×2 (15:01→21:02)
[2020-06-18] MEDS: ASCORBIC ACID 500 MG TABLET PO SCH ×3 (15:01→21:02)
[2020-06-18] MEDS: AZITHROMYCIN IV 500 MG in NA CHLORIDE 0.9% 250 ML IVPB SCH (15:35)
[2020-06-18] MEDS: CEFTRIAXONE/SWI 1gm 1 GM/10 ML SYR IVP SCH (15:36)
[2020-06-18 15:52] LABS: Urine Appearance CLEAR (Clear); Urine Bilirubin NEGATIVE (Negative); Urine Blood 2+ (Negative); Urine Color YELLOW (Yellow); Urine Glucose 3+ (Negative); Urine Protein 1+ (Negative); Urine Specific Gravity >=1.030 (1.005-1.030)
[2020-06-18 15:53] LABS: Urine Microscopic Reflex ORDER UMIC
[2020-06-18 16:18] LABS: Urine Amorphous Sediment TRACE /HPF (NONE SEEN); Urine Bacteria <20 /HPF (NONE SEEN)
[2020-06-18] MEDS: INSULIN -REGULAR HUMAN 50 UNIT/0.5 ML ML SQ SCH ×2 (16:48→21:00)
[2020-06-18] MEDS: BENZONATATE 100 MG CAP PO PRN (19:50)
[2020-06-18] MEDS: APIXABAN 5 MG TABLET PO SCH (20:56)
[2020-06-18] MEDS: FAMOTIDINE 20 MG TAB PO SCH (21:02)
[2020-06-18] MEDS: THIAMINE HCL 100 MG TABLET PO SCH (21:02)
[2020-06-19 04:09] LABS: Absolute Lymphocytes (CBC) 0.7 K/uL (0.7-4.9); Basophils % 0.1 % (0-1.3); Hematocrit 44.1 % (39.6-49.0); Lymphocytes % 6.1 % (15.3-44.8); MPV 9.6 fL (7.6-11.3); RBC Red Blood Cell Count 5.44 M/uL (4.33-5.43)
[2020-06-19 05:07] LABS: Albumin 2.9 g/dL (3.4-5.0); Bilirubin Total 0.7 mg/dL (0.2-1.0); Magnesium 2.5 mg/dL (1.8-2.4); Potassium 4.3 mmol/L (3.5-5.1); Protein, Total 7.6 g/dL (6.4-8.2); Thyroid Stimulating Hormone 0.351 uIU/mL (0.360-3.740)
[2020-06-19] MEDS: INSULIN -REGULAR HUMAN 50 UNIT/0.5 ML ML SQ SCH ×4 (09:35→20:44)
[2020-06-19] MEDS: VITAMIN D 1000 UNIT TAB PO SCH (09:36)
[2020-06-19] MEDS: FAMOTIDINE 20 MG TAB PO SCH ×2 (09:37→20:44)
[2020-06-19] MEDS: APIXABAN 5 MG TABLET PO SCH ×2 (09:37→20:44)
[2020-06-19] MEDS: ASCORBIC ACID 500 MG TABLET PO SCH ×4 (09:37→20:46)
[2020-06-19] MEDS: THIAMINE HCL 100 MG TABLET PO SCH ×2 (09:37→20:44)
[2020-06-19] MEDS: METHYLPREDNISOLONE 125 MG INJ IV SCH ×3 (09:37→20:44)
[2020-06-19] MEDS: CEFTRIAXONE/SWI 1gm 1 GM/10 ML SYR IVP SCH (09:37)
[2020-06-19] MEDS: ZINC SULFATE 220 MG CAP PO SCH (09:38)
[2020-06-19] MEDS: AZITHROMYCIN IV 500 MG in NA CHLORIDE 0.9% 250 ML IVPB SCH (09:38)
[2020-06-19] MEDS ORDERED: D50W 25 GM/50 ML SYRINGE IV PRN (10:18)
[2020-06-19] MEDS ORDERED: GLUCAGON 1 MG/VIAL IM PRN (10:18)
--- NOTE | 2020-06-19 10:23 | P.PN ---
Subjective Date of Service: 06/19/20 Primary Care Provider: none; Liver specialist-[facility] Chief Complaint: Shortness of breath Subjective: Other (Overall stable. Currently on 4 L per nasal cannula. This is an increase since yesterday.) Physical Examination - Vital Signs Temperature: 97.7 F Blood Pressure: 105/51 Pulse: 86 Respirations: 20 Pulse Ox (%): 91 - Studies Laboratory Data (last 24 hrs) 06/18/20 10:34: PT 14.5 H, INR 1.26, APTT 26.9 06/18/20 10:34: WBC 10.20, Hgb 15.0, Hct 46.5, Plt Count 219 06/18/20 10:34: Sodium 135 L, Potassium 4.1, BUN 15, Creatinine 1.13, Glucose 253 H, Total Bilirubin 1.3 H, AST 43 H, ALT 84 H, Alkaline Phosphatase 72, Lipase 196 Assessment & Plan Discharge Plan: Home Plan to discharge in: 72 Hours Physician Review Additional Text: Physical exam: Patient alert, cooperative. Patient currently on 4 L per nasal cannula. This is increased since yesterday. Was previously on 2 L. Heart: Regular rate and rhythm Lungs: Currently on 4 L Abdomen: Soft nontender nondistended Extremities: Good range of motion. No focal deficits. No edema noted. 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 CRP and ferritin were elevated. Continue to monitor closely. Continue with IV steroids, and supplementation. Patient not able to take remdesivir due to liver disease. Encourage ambulation. Encourage incentive spirometer. Encourage proning. Respiratory to continue to wean down oxygen. We will see how patient does over the next 24 to 48 hours. Will consider discharge if less than 4 L per nasal cannula required without significant desaturations. We will continue to monitor closely. Patient on Eliquis for DVT prophylaxis due to elevated D-dimer and risk for DVT. We will continue to reassess. Hyperglycemia suspect prediabetes versus diabetes: We will check A1c. We will start low-dose Lantus for better diabetic control. Suspect diabetes. Will provide sliding scale. 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 Patient reports that he was on experimental medication with improvement of liver disease. Obesity, BMI 31.8: Continue lifestyle modification education. Time Spent Managing Pts Care (In Minutes): 55
[2020-06-19] MEDS ORDERED: D50W 25 GM/50 ML VIAL IV PRN (16:00)
[2020-06-19] MEDS ORDERED: POLYVINYL ALCOHOL 1.4% 15 ML EACH EYE PRN (17:07)
[2020-06-19] MEDS: INSULIN GLARGINE 100 UNITS/ML SQ SCH (20:45)
[2020-06-20 04:01] LABS: Absolute Lymphocytes (CBC) 0.8 K/uL (0.7-4.9); Basophils % 0.2 % (0-1.3); Hematocrit 41.2 % (39.6-49.0); Lymphocytes % 4.3 % (15.3-44.8); MPV 9.4 fL (7.6-11.3); RBC Red Blood Cell Count 5.16 M/uL (4.33-5.43)
[2020-06-20 04:46] LABS: Albumin 2.6 g/dL (3.4-5.0); Bilirubin Total 0.7 mg/dL (0.2-1.0); C-Reactive Protein 60.9 mg/L (<3.00); Ferritin 790.4 ng/mL (26-388); Magnesium 2.6 mg/dL (1.8-2.4); Potassium 4.4 mmol/L (3.5-5.1); Protein, Total 6.8 g/dL (6.4-8.2)
--- NOTE | 2020-06-20 08:36 | P.PN ---
Subjective Date of Service: 06/20/20 Primary Care Provider: none; Liver specialist-JACEK Lidaniellewilfrid Chief Complaint: Shortness of breath Subjective: Improving Physical Examination - Vital Signs Temperature: 97.9 F Blood Pressure: 116/57 Pulse: 67 Respirations: 17 Pulse Ox (%): 96 Assessment & Plan Discharge Plan: Home Plan to discharge in: 48 Hours Physician Review Additional Text: Physical exam: Patient reports improvement. Still on 4 L per nasal cannula. Still somewhat short of breath. Heart: Regular rate and rhythm Lungs: Currently on 4 L Abdomen: Soft nontender nondistended Extremities: Good range of motion. No focal deficits. No edema noted. 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 Continue incentive spirometer, ambulation. Continue IV steroids and supplementation. However respiratory try to wean down on his oxygen. Continue Eliquis for DVT prophylaxis. If able to wean down below 4 L without significant desaturations or shortness of breath will consider discharge as early as tomorrow. Patient with diabetes. Hemoglobin A1c 7.1. Low-dose La ntus initiated yesterday. Will start Metformin. Inflammatory markers improved. Will check chest x-ray. We will continue to monitor closely. Anticipate discharge in the next 24 to 48 hours. Hyperglycemia secondary to diabetes mellitus type 2: Hemoglobin A1c 6.1. Patient with diabetes. Lantus initiated yesterday. Will start Metformin as well. Will teach on diabetes. 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 Patient reports that he was on experimental medication with improvement of liver disease. Obesity, BMI 31.8: Continue lifestyle modification education. Time Spent Managing Pts Care (In Minutes): 55
--- NOTE | 2020-06-20 08:43 | RAD REPORT ---
EXAM DESCRIPTION: RAD - Chest Single View - 06/20/2020 6:34 am CLINICAL HISTORY: follow up COVID Chest pain. COMPARISON: Chest Single View dated 06/18/2020; Chest Single View dated 06/15/2020; Chest Single View dated 06/07/2018; CHEST SINGLE VIEW dated 02/27/2010 FINDINGS: Portable technique limits examination quality. Since 06/18/2020, there has been mild worsening in bilateral pulmonary opacities noted. The heart is normal in size. No displaced fractures. IMPRESSION: Mild worsening in lung aeration is seen since the comparative study.
[2020-06-20] MEDS: CEFTRIAXONE/SWI 1gm 1 GM/10 ML SYR IVP SCH (09:11)
[2020-06-20] MEDS: VITAMIN D 1000 UNIT TAB PO SCH (09:11)
[2020-06-20] MEDS: METHYLPREDNISOLONE 125 MG INJ IV SCH ×3 (09:11→22:28)
[2020-06-20] MEDS: THIAMINE HCL 100 MG TABLET PO SCH ×2 (09:12→22:27)
[2020-06-20] MEDS: AZITHROMYCIN 250 MG TAB PO SCH (09:12)
[2020-06-20] MEDS: ASCORBIC ACID 500 MG TABLET PO SCH ×4 (09:12→22:27)
[2020-06-20] MEDS: ZINC SULFATE 220 MG CAP PO SCH (09:12)
[2020-06-20] MEDS: APIXABAN 5 MG TABLET PO SCH ×2 (09:12→22:27)
[2020-06-20] MEDS: INSULIN -REGULAR HUMAN 50 UNIT/0.5 ML ML SQ SCH ×4 (09:14→22:38)
[2020-06-20] MEDS: FAMOTIDINE 20 MG TAB PO SCH ×2 (10:26→22:28)
[2020-06-20] MEDS: METFORMIN HCL 500 MG TAB PO SCH (16:41)
[2020-06-20] MEDS: BENZONATATE 100 MG CAP PO PRN (22:30)
[2020-06-20] MEDS: INSULIN GLARGINE 100 UNITS/ML SQ SCH (22:39)
[2020-06-21 04:07] LABS: Absolute Lymphocytes (CBC) 0.9 K/uL (0.7-4.9); Basophils % 0.1 % (0-1.3); Hematocrit 42.6 % (39.6-49.0); Lymphocytes % 5.5 % (15.3-44.8); MPV 9.5 fL (7.6-11.3); RBC Red Blood Cell Count 5.27 M/uL (4.33-5.43)
[2020-06-21 04:58] LABS: Blood Morphology Comment NOT SEEN (NOT SEEN); Platelet Estimate ADEQ
[2020-06-21 05:05] LABS: Albumin 2.7 g/dL (3.4-5.0); Bilirubin Total 0.8 mg/dL (0.2-1.0); C-Reactive Protein 22.1 mg/L (<3.00); Ferritin 693.3 ng/mL (26-388); Magnesium 2.5 mg/dL (1.8-2.4); Potassium 4.7 mmol/L (3.5-5.1); Protein, Total 6.6 g/dL (6.4-8.2)
[2020-06-21] MEDS: METFORMIN HCL 500 MG TAB PO SCH ×2 (09:07→17:56)
[2020-06-21] MEDS: AZITHROMYCIN 250 MG TAB PO SCH (09:07)
[2020-06-21] MEDS: FAMOTIDINE 20 MG TAB PO SCH ×2 (09:07→21:42)
[2020-06-21] MEDS: THIAMINE HCL 100 MG TABLET PO SCH ×2 (09:07→21:42)
[2020-06-21] MEDS: ZINC SULFATE 220 MG CAP PO SCH (09:07)
[2020-06-21] MEDS: VITAMIN D 1000 UNIT TAB PO SCH (09:07)
[2020-06-21] MEDS: METHYLPREDNISOLONE 125 MG INJ IV SCH ×3 (09:07→21:43)
[2020-06-21] MEDS: ASCORBIC ACID 500 MG TABLET PO SCH ×4 (09:08→21:42)
[2020-06-21] MEDS: APIXABAN 5 MG TABLET PO SCH ×2 (09:08→21:42)
[2020-06-21] MEDS: CEFTRIAXONE/SWI 1gm 1 GM/10 ML SYR IVP SCH (09:08)
[2020-06-21] MEDS: INSULIN -REGULAR HUMAN 50 UNIT/0.5 ML ML SQ SCH ×4 (09:08→21:55)
--- NOTE | 2020-06-21 15:56 | P.PN ---
Subjective Date of Service: 06/21/20 Primary Care Provider: none; Liver specialist-JACEK Grimes Chief Complaint: Shortness of breath Subjective: Improving Physical Examination - Vital Signs Temperature: 97.5 F Blood Pressure: 132/65 Pulse: 75 Respirations: 20 Pulse Ox (%): 93 Assessment & Plan Discharge Plan: Home Plan to discharge in: 24 Hours Physician Review Additional Text: Physical exam: Patient reports improvement. Currently on 4 L per nasal cannula at this time was on 6 L this morning. Heart: Regular rate and rhythm Lungs: Currently on 4 L Abdomen: Soft nontender nondistended Extremities: Good range of motion. No focal deficits. No edema noted. 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 Currently on 4 L per nasal cannula. Patient still somewhat short of breath with exertion. Continue incentive spirometer, ambulation and proning. Continue IV steroids and supplementation. Respiratory to continue to wean off oxygen. Continue Eliquis for DVT prophylaxis. If able to wean down below 4 L without significant desaturations or shortness of breath will consider discharge tomorrow. Patient with diabetes. Hemoglobin A1c 7.1. Continue Lantus and Metformin. Likely Metformin at discharge. Inflammatory markers improved. Continue to monitor closely. Social work arranging for home oxygen at discharge. Anticipate discharge tomorrow. I will turn the service over to the hospitalist team tomorrow. I will go plan of care with them. Hyperglycemia secondary to diabetes mellitus type 2: Hemoglobin A1c 6.1. Patient with diabetes. Lantus initiated yesterday. Continue Metformin. Likely Metformin at discharge. 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 Patient reports that he was on experimental medication with improvement of liver disease. Obesity, BMI 31.8: Continue lifestyle modification education. Time Spent Managing Pts Care (In Minutes): 55
[2020-06-21] MEDS: INSULIN GLARGINE 100 UNITS/ML SQ SCH (21:55)
[2020-06-22 04:41] LABS: C-Reactive Protein 11.8 mg/L (<3.00); Ferritin 676.5 ng/mL (26-388)
[2020-06-22] MEDS: ASCORBIC ACID 500 MG TABLET PO SCH ×2 (09:00→13:07)
[2020-06-22] MEDS: INSULIN -REGULAR HUMAN 50 UNIT/0.5 ML ML SQ SCH ×2 (10:33→13:04)
[2020-06-22] MEDS: METHYLPREDNISOLONE 125 MG INJ IV SCH ×2 (10:34→15:14)
[2020-06-22] MEDS: CEFTRIAXONE/SWI 1gm 1 GM/10 ML SYR IVP SCH (10:36)
[2020-06-22] MEDS: VITAMIN D 1000 UNIT TAB PO SCH (10:37)
[2020-06-22] MEDS: AZITHROMYCIN 250 MG TAB PO SCH (10:38)
[2020-06-22] MEDS: ZINC SULFATE 220 MG CAP PO SCH (10:38)
[2020-06-22] MEDS: THIAMINE HCL 100 MG TABLET PO SCH (10:38)
[2020-06-22] MEDS: METFORMIN HCL 500 MG TAB PO SCH (10:38)
[2020-06-22] MEDS: FAMOTIDINE 20 MG TAB PO SCH (10:38)
[2020-06-22] MEDS: APIXABAN 5 MG TABLET PO SCH (10:39)
[2020-06-22] MEDS: BENZONATATE 100 MG CAP PO PRN (10:45)
--- NOTE | 2020-06-22 12:32 | P.DS ---
Admission Date: 06/18/20 Discharge Date: 06/22/20 Primary Care Provider: none; Liver specialist-JACEK Grimes Disposition: ROUTINE DISCHARGE Discharge Condition: GOOD Reason for Admission: Shortness of breath Consultations: Pulmonary-Dr. Bautista Procedures: COVID: Positive CT scan: FINDINGS: No evidence of pulmonary thromboembolism. No acute aortic finding demonstrated. Extensive alveolar and interstitial lung opacities are present bilaterally, greatest in the lower lobes. This is likely related to COVID-19 infection. No significant pericardial or pleural fluid. No concerning bony finding. IMPRESSION: No evidence of pulmonary thromboembolism. Extensive alveolar and interstitial lung opacities, greatest in the lower lobes as detailed. 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 Patient with underlying history of liver diseaseNASH. Patient was seen in the ER on Wednesday. He was diagnosed with COVID-19 at that time. He was discharged home. Since that time he has been having increasing shortness of breath. Fever, chills, body aches noted. Shortness of breath got worse today. He had some mild nausea today. He came to the ER for further evaluation. In the ER patient was evaluated. CT scan revealed no pulmonary embolism. Extensive alveolar and interstitial lung opacities noted. White count 10, hemoglobin 15. Sodium 135, potassium within normal range. Creatinine 1.13 with a GFR of 68. Glucose 253. Procalcitonin 0.21. Ferritin 941, CRP 162. Lactic acid normal. D-dimer 759. Total bilirubin 1.3, direct bilirubin 0.6. AST 43, ALT 84. Patient was found to be hypoxic. Patient currently on 2 L per nasal cannula. Patient was admitted for further evaluation and treatment. Hospital Course: Patient presented with dyspnea and hypoxia. Patient had recently been diagnosed with COVID-19 and seen in the emergency room. He had been discharged but had worsening symptoms. The patient was reevaluated in the emergency room. Patient required hospitalization. CT scan did not reveal any pulmonary embolism. The patient was treated for bilateral Covid 19 pneumonia. Patient responded well to IV steroid and supplementation. Patient was seen and evaluated by pulmonology. Patient was not a candidate for IV remdesivir due to his liver disease. Patient improved. Patient ambulating well without significant desaturations. At discharge the patient still requires home oxygen. Home oxygen will be arranged. At discharge she will continue with 4 L per nasal cannula to maintain sats above 93%. At discharge the patient will continue with prednisone 20 mg 1 pill twice daily for 7 days then 1 pill once daily for 7 days. The patient will also be provided with Tessalon Perles 100 mg 3 times a day as needed for cough and albuterol 2 puffs 3 times a day as needed for shortness of breath. The patient will continue with vitamin supplementation including vitamin C 500 mg 3 times a day, vitamin D 2000 units daily, zinc 220 mg daily and thiamine 100 mg 1 pill twice daily. Patient will continue with CDC guidelines on recommendations for isolation. Patient will continue with active proning, ambulation, encouragement of incentive spirometer and close monitoring. At discharge the patient will also continue with Eliquis 5 mg 1 pill twice daily for at least 2 weeks due to risk of DVT with diagnosis of Covid. At discharge the patient will need to follow-up with pulmonology in 1 week to follow-up his hospitalization and continue his care. Pulmonology will continue to further wean off oxygen and adjust medication. Recommendation is for the patient to follow-up with his PCP to further monitor and address along with follow-up of hospitalization. At discharge patient will continue with face mask use, social distancing and handwashing. Patient will need to limit activities at home. Patient will follow up with pulmonology to determine when patient can return back to work. Patient had hyperglycemia. Patient was evaluated for diabetes mellitus type 2. Hemoglobin A1c 7.1. New diagnosis of diabetes identified. Patient was started on medication. At discharge the patient will continue with Metformin 500 mg twice daily with meals. Recommend to maintain blood sugar less than 140 fasting and less than 200 after meals. Further adjustment in medication may be re quired. This can be done with the help of his PCP. Recommend to continue with diabetic 2000 ADA diet. Diabetic education provided. Recommend to recheck A1c in 3 months to monitor his progress. Recommend follow-up with PCP to further address his condition. Patient with stage II3 liver disease related to ONEAL. Patient had been on experimental medication with improvement of his liver disease. Patient sees hepatology in [place]. Recommend follow-up as directed. Patient with obesity, BMI 31.8. Continue lifestyle modification education. Vital Signs/Physical Exam: Temp Pulse Resp BP Pulse Ox 98 F 57 16 132/77 92 06/22/20 04:00 06/22/20 04:00 06/22/20 04:00 06/22/20 04:00 06/22/20 04:00 General: Alert, In no apparent distress, Oriented x3, Cooperative HEENT: Atraumatic Neck: Supple Respiratory: Other (Patient breathing appropriately. Currently on 4 L per nasal cannula.) Cardiovascular: Normal pulses, Regular rate/rhythm Gastrointestinal: Normal bowel sounds, No masses, No rebound, No guarding Integumentary: No tenderness/swelling Neurological: Normal speech, Normal strength at 5/5 x4 extr, Normal tone, Normal affect Laboratory Data at Discharge: WBC 15.90 K/uL (4.3-10.9) H 06/21/20 03:12 Hgb 13.7 g/dL (13.6-17.9) 06/21/20 03:12 Hct 42.6 % (39.6-49.0) 06/21/20 03:12 Plt Count 308 K/uL (152-406) 06/21/20 03:12 PT 14.5 SECONDS (9.5-12.5) H 06/18/20 10:34 INR 1.26 06/18/20 10:34 APTT 26.9 SECONDS (24.3-36.9) 06/18/20 10:34 Sodium 140 mmol/L (136-145) 06/21/20 03:23 Potassium 4.7 mmol/L (3.5-5.1) 06/21/20 03:23 BUN 26 mg/dL (7-18) H 06/21/20 03:23 Creatinine 0.93 mg/dL (0.55-1.3) 06/21/20 03:23 Glucose 199 mg/dL (74-106) H 06/21/20 03:23 Magnesium 2.5 mg/dL (1.8-2.4) H 06/21/20 03:23 Total Bilirubin 0.8 mg/dL (0.2-1.0) 06/21/20 03:23 AST 28 U/L (15-37) 06/21/20 03:23 ALT 63 U/L (12-78) 06/21/20 03:23 Alkaline Phosphatase 67 U/L (45-117) 06/21/20 03:23 Lipase 196 U/L (73-393) 06/18/20 10:34 Home Medications: Albuterol Sulfate [Proair Hfa] 2 puff IH TID PRN #1 hfa.aer.ad 06/22/20 Apixaban [Eliquis] 5 mg PO BID #30 tablet 06/22/20 Ascorbic Acid [Vitamin C*] 500 mg PO TID #90 tablet 06/22/20 Benzonatate [Tessalon Perle*] 100 mg PO TID PRN #15 cap 06/22/20 Cholecalciferol (Vitamin D3) [Vitamin D 1000 Iu Tab*] 2,000 unit PO DAILY #60 tab 06/22/20 Metformin HCl [Glucophage*] 500 mg PO BIDWM #60 tab 06/22/20 Thiamine HCl [Vitamin B-1*] 100 mg PO BID #60 tablet 06/22/20 Zinc Sulfate [Zinc Sulfate*] 220 mg PO DAILY #90 cap 06/22/20 predniSONE [Prednisone*] 20 mg PO SEECOM #21 tab 06/22/20 New Medications: Apixaban [Eliquis] 5 mg PO BID #30 tablet Metformin HCl [Glucophage*] 500 mg PO BIDWM #60 tab predniSONE [Prednisone*] 20 mg PO SEECOM #21 tab Albuterol Sulfate [Proair Hfa] 2 puff IH TID PRN #1 hfa.aer.ad PRN Reason: Shortness Of Breath Benzonatate [Tessalon Perle*] 100 mg PO TID PRN #15 cap PRN Reason: Cough Thiamine HCl [Vitamin B-1*] 100 mg PO BID #60 tablet Ascorbic Acid [Vitamin C*] 500 mg PO TID #90 tablet Cholecalciferol (Vitamin D3) [Vitamin D 1000 Iu Tab*] 2,000 unit PO DAILY #60 tab Zinc Sulfate [Zinc Sulfate*] 220 mg PO DAILY #90 cap Physician Discharge Instructions: Patient presented with dyspnea and hypoxia. Patient had recently been diagnosed with COVID-19 and seen in the emergency room. He had been discharged but had worsening symptoms. The patient was reevaluated in the emergency room. Patient required hospitalization. CT scan did not reveal any pulmonary embolism. The patient was treated for bilateral Covid 19 pneumonia. Patient responded well to IV steroid and supplementation. Patient was seen and evaluated by pulmonology. Patient was not a candidate for IV remdesivir due to his liver disease. Patient improved. Patient ambulating well without significant desaturations. At discharge the patient still requires home oxygen. Home oxygen will be arranged. At discharge she will continue with 4 L per nasal cannula to maintain sats above 93%. At discharge the patient will continue with prednisone 20 mg 1 pill twice daily for 7 days then 1 pill once daily for 7 days. The patient will also be provided with Tessalon Perles 100 mg 3 times a day as needed for cough and albuterol 2 puffs 3 times a day as needed for shortness of breath. The patient will continue with vitamin supplementation including vitamin C 500 mg 3 times a day, vitamin D 2000 units daily, zinc 220 mg daily and thiamine 100 mg 1 pill twice daily. Patient will continue with CDC guidelines on recommendations for isolation. Patient will continue with active proning, ambulation, encouragement of incentive spirometer and close monitoring. At discharge the patient will also continue with Eliquis 5 mg 1 pill twice daily for at least 2 weeks due to risk of DVT with diagnosis of Covid. At discharge the patient will need to follow-up with pulmonology in 1 week to follow-up his hospitalization and continue his care. Pulmonology will continue to further wean off oxygen and adjust medication. Recommendation is for the patient to follow-up with his PCP to further monitor and address along with follow-up of hospitalization. At discharge patient will continue with face mask use, social distancing and handwashing. Patient will need to limit activities at home. Patient will f ollow up with pulmonology to determine when patient can return back to work. Patient had hyperglycemia. Patient was evaluated for diabetes mellitus type 2. Hemoglobin A1c 7.1. New diagnosis of diabetes identified. Patient was started on medication. At discharge the patient will continue with Metformin 500 mg twice daily with meals. Recommend to maintain blood sugar less than 140 fasting and less than 200 after meals. Further adjustment in medication may be required. This can be done with the help of his PCP. Recommend to continue with diabetic 2000 ADA diet. Diabetic education provided. Recommend to recheck A1c in 3 months to monitor his progress. Recommend follow-up with PCP to further address his condition. Patient with stage II3 liver disease related to ONEAL. Patient had been on experimental medication with improvement of his liver disease. Patient sees hepatology in [place]. Recommend follow-up as directed. Patient with obesity, BMI 31.8. Continue lifestyle modification education. Diet: ADA Activity: Ad michel Followup: Maribel Fisher MD [Primary Care Provider] - Time spent managing pt's care (in minutes): 55
[2020-06-22 13:50] VITALS: O2SAT 91
[2020-06-22 14:14] VITALS: BP 145/71; TEMP 97.2
== END 2020-06-22 15:48 | disposition home or self-care (01) | DRG 177 ==
LOC: ER 10:12 → ERHOLD 12:45 → 4TH 13:28
PROVIDERS: ADMIT Family Medicine; ATTEND Internal Medicine
DX: U07.1 COVID-19 (principal); J12.82 Pneumonia due to coronavirus disease 2019; K75.81 Nonalcoholic steatohepatitis (NASH); K76.9 Liver disease, unspecified; E11.65 Type 2 diabetes mellitus with hyperglycemia; R09.02 Hypoxemia; E66.9 Obesity, unspecified; Z68.31 Body mass index [BMI] 31.0-31.9, adult; Z79.01 Long term (current) use of anticoagulants; Z79.84 Long term (current) use of oral hypoglycemic drugs; Z79.52 Long term (current) use of systemic steroids; Z79.899 Other long term (current) drug therapy
CPT/HCPCS: 36415; 71045; 71275; 80048; 80053; 80076; 81003; 81015; 82728; 82947; 83036; 83605; 83690; 83735; 84145; 84439; 84443; 84484; 85025; 85379; 85610; 85730; 86140; 87040; 94010; 96374; 99285; J0456; J0696; J1100; J1815; J2930; J7050; Q9967

== ENCOUNTER 2021-02-14 08:02 | Day surgery (SDC) | payer OTHER ==
[2021-02-10 11:25] LABS: Absolute Lymphocytes (CBC) 1.4 K/uL (0.7-4.9); Basophils % 0.7 % (0-1.3); Hematocrit 45.2 % (39.6-49.0); Lymphocytes % 18.7 % (15.3-44.8); MPV 9.5 fL (7.6-11.3); RBC Red Blood Cell Count 5.62 M/uL (4.33-5.43)
[2021-02-10 11:28] LABS: Protime INR 1.05
[2021-02-10 11:35] LABS: Potassium 4.3 mmol/L (3.5-5.1)
--- NOTE | 2021-02-10 12:15 | RAD REPORT ---
EXAM DESCRIPTION: RAD - Chest Pa And Lat (2 Views) - 02/10/2021 12:02 pm CLINICAL HISTORY: PRE-OP Chest pain. COMPARISON: Chest Single View dated 06/20/2020; Chest Single View dated 06/18/2020; Chest Single View dated 06/15/2020; Chest Single View dated 06/07/2018 FINDINGS: The lungs are clear. The heart is normal in size. No displaced fractures. IMPRESSION: No acute or concerning finding suspected.
[2021-02-14] MEDS ORDERED: Ringers Lactate 1,000 ML IV ONE (08:16)
[2021-02-14] MEDS ORDERED: CEFAZOLIN/SWI 2gm 0 GM/0 ML SYR ONE (08:35)
[2021-02-14 09:01] VITALS: BP 135/84; TEMP 97; O2SAT 98
== END 2021-02-14 09:30 | disposition home or self-care (01) ==
LOC: OR 08:02
PROVIDERS: ATTEND Orthopaedic Surgery Sports Medicine
DX: S43.432A Superior glenoid labrum lesion of left shoulder, initial encounter (principal); Z20.822 Contact with and (suspected) exposure to COVID-19; Z53.8 Procedure and treatment not carried out for other reasons
CPT/HCPCS: 85025; 80048; 36415; 85610; 85730; 71046; U0002; J7120; J0690

== ENCOUNTER 2021-02-21 05:55 | Day surgery (SDC) | payer OTHER ==
[2021-02-21] MEDS ORDERED: Ringers Lactate 1,000 ML IV ONE (06:21)
[2021-02-21] MEDS ORDERED: CEFAZOLIN/SWI 2gm 2 GM/20 ML SYR ONE (06:21)
[2021-02-21] MEDS ORDERED: dexAMETHasone 10 MG/ML VIAL ONE ×2 (06:47→07:24)
[2021-02-21] MEDS ORDERED: FENTANYL CITR 100 MCG/2 ML ONE (06:47)
[2021-02-21] MEDS ORDERED: MIDAZOLAM HCL 2 MG/2 ML INJ ONE (06:47)
[2021-02-21] MEDS ORDERED: LIDOCAINE 1% MPF 5 ML VIAL ONE (06:47)
[2021-02-21] MEDS ORDERED: ROPLVACAINE HCL 40 ML ONE (06:48)
[2021-02-21] MEDS ORDERED: EPINEPHRINE/PF 1 MG/ML AMP ONE (07:13)
[2021-02-21] MEDS ORDERED: propofoL 200 MG/20 ML VIAL IV ONE (07:23)
[2021-02-21] MEDS ORDERED: LIDOCAINE 2% MPF 5 ML VIAL ONE (07:24)
[2021-02-21] MEDS ORDERED: KETOROLAC 30 MG/ML INJ ONE (07:24)
[2021-02-21] MEDS ORDERED: ROCURONIUM 50 MG/5 ML VIAL IV ONE (07:24)
[2021-02-21] MEDS ORDERED: ONDANSETRON 4 MG/2 ML VIAL ONE ×3 (07:25→13:25)
[2021-02-21] MEDS ORDERED: NEOSTIGMINE 1 MG/ML -5 ML ONE (10:44)
[2021-02-21] MEDS ORDERED: GLYCOPYRROLATE 0.2 MG/ML SYR ONE (10:44)
--- NOTE | 2021-02-21 11:06 | P.BOP ---
Preoperative diagnosis: left shoulder SLAP tear Postoperative diagnosis: same Primary procedure: left shoulder arthroscopic SLAP repair [employer] Quality Control Technician: NONE,NONE Estimated blood loss: 10 cc Specimen: none Findings: see dictation Anesthesia: General Complications: None Implants: 2 Arthrex 2.9 Pushlock Fluids & blood products: per anesthesia record Transferred to: Recovery Room Condition: Good
--- NOTE | 2021-02-21 11:57 | OP ---
Date of Procedure: 02/21/2021 Surgeon: Brandon Landis MD Preoperative Diagnosis: Left shoulder superior labral anterior to posterior tear. Postoperative Diagnosis: Left shoulder superior labral anterior to posterior tear. Procedure Performed: Left shoulder arthroscopic superior labral anterior to posterior repair. Anesthesia: General endotracheal. Fluids: Per Anesthesia record. Estimated Blood Loss: 10 cc. Complications: None. Implants: Two Arthrex 2.9 PushLocks. Indications For Procedure: Miguel is a 50-year-old male presenting today in my clinic after sustaining multiple dislocations of his right shoulder. He had an MRI, which demonstrated a right shoulder anterior labrum with SLAP tear. The patient failed conservative treatment measures including formal physical therapy. His pain and instability continued to cause him difficulty in his activities of daily living. I discussed with the patient at length risks and benefits associated with operative and nonoperative treatment. He expressed understanding and would like to proceed with operative treatment. Description Of Procedure: After informed consent was obtained, the patient was identified in the preoperative holding area. The left upper extremity was marked. The patient was then brought back to the PACU where he underwent a left-sided interscalene block performed by Anesthesia. He was then taken back to the operating room, turned to the operating table in supine fashion, and placed under general endotracheal anesthesia. He was then placed in the beach chair position with extremities well-padded. He did have some anterior subluxation noted of his left shoulder preoperatively. The left upper extremity was then prepped and draped in usual sterile fashion. A time-out was initiated. The correct patient and procedure were confirmed and identified. The patient did receive his preoperative prophylactic antibiotics. A spinal needle was introduced via the posterior portal position and the shoulder was injected with 30 cc of normal saline. Under direct visualization, a high anterior superior portal was created and a diagnostic arthroscopy was performed. The patient was noted to have a SLAP tear coming from approximately 9 o'clock to 12 o'clock with an elevation of the anterior superior labrum. There was no significant biceps tenosynovitis or bicipital fraying. The anterior inferior labrum was intact and stable to probe. The subscapularis was intact and stable. The undersurface of the rotator cuff was noted to be stable without tear. Next, attention was taken to perform a SLAP repair. A second anterior-inferior portal was created and a cannula was placed. A suture lasso was then used to grab the anterior labral tissue at approximately 3 o'clock. A 2.9 PushLock was then used to repair the labral tissue to the glenoid. The glenoid was prepared using arthroscopic shaver and an increased healing potential. Next, a second LabralTape was placed at approximately 11 o'clock position. There was good capsule and labral tissue that was cut with the lasso. LabralTape was placed and a second 2.9-mm PushLock was placed at the 11 o'clock position. A third anchor was then attempted to be placed at approximately 12:30, however, there was poor bone quality and the suture was removed. The anchor did have some purchase in the bone and remained. There were no loose bodies or anchors noted within the shoulder joint after removal of the third LabralTape. Next, attention was brought to the subacromial space where subacromial bursectomy was performed. The rotator cuff was then probed again from the bursal side and there was no full-thickness tear noted of the rotator cuff. Arthroscopic instruments were then removed without complication. Wound was then irrigated thoroughly with normal saline. Subcutaneous tissue was approximated using a 2-0 Vicryl. Skin was approximated using 3-0 Monocryl. Sterile dressings were applied. The patient was placed in a shoulder immobilizer, awakened, and transferred to PACU in stable condition. Postoperative Plan: The patient will be nonweightbearing of his left upper extremity and he will begin physical therapy per post SLAP repair protocol at four weeks postop. MICHAEL/YARI Voice ID: [id number] Report ID: [id number] DARIN
--- NOTE | 2021-02-21 11:58 | RAD REPORT ---
EXAM DESCRIPTION: RAD - Shoulder 1 View - 02/21/2021 11:33 am CLINICAL HISTORY: s/p L shoulder arthroscopic SLAP repair COMPARISON: No comparisons FINDINGS: Single frontal projection is submitted. Mild AC and glenohumeral joint arthritic changes. No unexpected postoperative finding.
[2021-02-21] MEDS ORDERED: HYDROCODONE/APAP 7.5/325 MG TAB ONE (12:56)
[2021-02-21 14:42] VITALS: BP 131/80; TEMP 96.4; O2SAT 92
== END 2021-02-21 13:35 | disposition home or self-care (01) ==
LOC: OR 05:55
PROVIDERS: ATTEND Orthopaedic Surgery Sports Medicine
PROC: 0RQK4ZZ Repair Left Shoulder Joint, Percutaneous Endoscopic Approach (ICD-10-PCS; principal; 2021-02-21 07:30)
DX: S43.432A Superior glenoid labrum lesion of left shoulder, initial encounter (principal); Z20.822 Contact with and (suspected) exposure to COVID-19
CPT/HCPCS: 73020; 29807; U0003; J2704; J0171; J2250; J3010; J1100 ×2; J2795; J2710; J0690; J7120; J2405 ×3

== ENCOUNTER 2022-02-19 08:54 | Day surgery (SDC) | payer OTHER ==
--- NOTE | 2022-02-16 15:23 | RAD REPORT ---
EXAM DESCRIPTION: RAD - Chest Pa And Lat (2 Views) - 02/16/2022 3:18 pm CLINICAL HISTORY: pre op for surgery COMPARISON: Chest Pa And Lat (2 Views) dated 02/10/2021; Chest Single View dated 06/20/2020; Chest Sin gle View dated 06/18/2020; Chest Single View dated 06/15/2020 FINDINGS: Lines: None. Lungs: No evidence of edema or pneumonia. Pleural: No significant pleural effusions or pneumothorax. Cardiac: The heart size is within normal limits. Mediastinum: Within normal limits. Bones: No acute fractures. Other: None IMPRESSION: No acute cardiopulmonary disease.
[2022-02-16 15:36] LABS: Absolute Lymphocytes (CBC) 2.1 K/uL (0.7-4.9); Hematocrit 45.8 % (39.6-49.0); Lymphocytes % 23.9 % (15.3-44.8); MCV 81.9 fL (80-100); MPV 10.2 fL (7.6-11.3); RBC Red Blood Cell Count 5.59 M/uL (4.33-5.43)
[2022-02-16 15:44] LABS: Protime INR 1.15
[2022-02-16 15:55] LABS: Potassium 4.2 mmol/L (3.5-5.1)
--- NOTE | 2022-02-17 14:37 | EKG ---
Test Date: 2022-02-16 Test Time: 14:56:52 Supervisor Screen Making: DEMARIO MEASUREMENT RESULTS: Intervals: Rate: 82 LA: 164 QRSD: 84 QT: 344 QTc: 401 [place]: P: 47 LA: 164 QRS: 42 T: -10 INTERPRETIVE STATEMENTS: Normal sinus rhythm Nonspecific T wave abnormality Abnormal ECG Compared to ECG 06/08/2018 07:28:25 T-wave abnormality now present Electronically Signed On 02-17-22 14:34:37 [employer]OTIVE MANU[employer]ER by Anish Huerta
[2022-02-19] MEDS ORDERED: Ringers Lactate 1,000 ML IV ONE (09:14)
[2022-02-19] MEDS ORDERED: propofoL 200 MG/20 ML VIAL IV ONE (11:48)
[2022-02-19] MEDS ORDERED: FENTANYL CITR 100 MCG/2 ML ONE (11:48)
[2022-02-19] MEDS ORDERED: LIDOCAINE 2% MPF 5 ML VIAL ONE (11:49)
[2022-02-19] MEDS ORDERED: MIDAZOLAM HCL 2 MG/2 ML INJ ONE (11:49)
[2022-02-19] MEDS: CEFAZOLIN SODIUM 2 GM/VIAL ONE ×2 (11:52→12:50)
[2022-02-19] MEDS ORDERED: NS 0.9% VIAL 10 ML ONE (12:49)
[2022-02-19] MEDS: BUPIVACAINE 0.25% PF 30 ML VIAL ONE ×3 (12:51→13:38)
[2022-02-19] MEDS ORDERED: ONDANSETRON 4 MG/2 ML VIAL ONE (12:57)
--- NOTE | 2022-02-19 13:38 | P.BOP ---
Preoperative diagnosis: right knee medial meniscus tear Postoperative diagnosis: same, right medial femoral condyle chondromalacia Primary procedure: right knee partial medial meniscectomy Stain Wiper: NONE,NONE Estimated blood loss: 3 cc Specimen: none Findings: see dictation Anesthesia: General Complications: None Implants: none Fluids & blood products: per anesthesia record Transferred to: Recovery Room Condition: Good
[2022-02-19] MEDS ORDERED: HYDROCODONE/APAP 5/325 MG TAB ONE (14:52)
[2022-02-19 15:25] VITALS: BP 139/87; TEMP 98.1; O2SAT 98
--- NOTE | 2022-02-20 21:22 | OP ---
Date of Procedure: 02/19/2022 Surgeon: Brandon Landis MD Preoperative Diagnosis: Right knee medial meniscus tear. Postoperative Diagnoses: 1.Right knee medial meniscus tear. 2.Right knee medial femoral condyle chondromalacia. Procedure Performed: Right knee partial medial meniscectomy. Anesthesia: General LMA. Fluids: Per Anesthesia record. Estimated Blood Loss: 3 cc. Complication: None. Implants: None. Indication For Procedure: Miguel is a 51-year-old male who presented to my clinic with signs, sympt oms, and MRI findings consistent with a right knee medial meniscus tear. I discussed with the patien t at length risks and benefits associated with operative and nonoperative treatment. He expressed un derstanding and elected to proceed with operative treatment. Description Of Procedure: After informed consent was obtained, the patient was identified in the pre operative holding area and the right lower extremity was marked. The patient was then brought back t o the operating room, transferred to the operating table in supine fashion, and placed under general LMA anesthesia. The right lower extremity was prepped and draped in usual sterile fashion. A time-o ut was initiated and the correct patient and procedure were confirmed and identified that the patient did receive his preoperative prophylactic antibiotics. The right lower extremity was exsanguinated using an Esmarch and the tourniquet was inflated to 300 mmHg. Standard anteromedial and anterolatera l portals were created. Arthroscope was brought in via the anterolateral portal and a diagnostic art hroscopy was performed. The arthroscope was first brought into the patellofemoral joint where the pa tient was noted to have some mild chondromalacia changes to the undersurface of the patella trochlear groove. The arthroscope was then brought into both medial and lateral gutters. There were no loose bodies found within the gutters. The arthroscope was then brought into the medial compartment. The patient was noted to have some grade 3 chondromalacia changes of the medial femoral condyle as well as a complex tear of the posterior horn and body of the medial meniscus. A partial medial meniscecto my was performed using meniscal biters and arthroscopic shaver to smooth meniscal borders. The arthr oscope was then brought to intercondylar notch where the patient was noted to have intact ACL and PCL . The arthroscope was then brought to the lateral compartment where the patient has intact ACL and i ntact lateral meniscus, which were stable to probe. There was no significant chondromalacia noted to the lateral femoral condyle or lateral tibial plateau. The arthroscopic instruments were then remov ed without complications. Wounds were then irrigated with normal saline. Subcutaneous tissue was ap proximated using 2-0 Vicryl. Skin was approximated using 4-0 Monocryl. Sterile dressings were appli ed. Tourniquet was let down. Patient was awakened and transferred to PACU in stable condition. Postoperative Plan: The patient will be weightbearing as tolerated to right lower extremity. Physic al Therapy will be consulted to aid with mobilization. He is to follow up in 1 week for wound check. CV/MODL Voice ID: [id number] Report ID: [id number]
== END 2022-02-19 15:05 | disposition home or self-care (01) ==
LOC: OR 08:54
PROVIDERS: ATTEND Orthopaedic Surgery Sports Medicine
PROC: 0SBC4ZZ Excision of Right Knee Joint, Percutaneous Endoscopic Approach (ICD-10-PCS; principal; 2022-02-19 11:30)
DX: S83.241A Other tear of medial meniscus, current injury, right knee, initial encounter (principal); M25.561 Pain in right knee
CPT/HCPCS: 93005; 85025; 80048; 36415; 85610; 85730; 71046; 29881; J2704; J2001; J2250; J3010; A4216; J7120; J2405